=== PATIENT | male | born 1960 | race Caucasian/White ===

== ENCOUNTER → 2017-01-29 | Outpatient (CLI) | payer BC ==
--- NOTE | 2017-01-29 15:49 | XR ---
Right knee HISTORY: Right knee pain 3 views of the right knee No comparisons There is joint space loss in the medial compartment, minimal spurring suspected on one of the. Alignm ent and bone mineralization are maintained. No evident joint effusion. IMPRESSION: Consider osteoarthritis.
== END | disposition home or self-care (01) ==
LOC: RADXRYALE 14:44
PROVIDERS: ATTEND Internal Medicine
DX: M17.12 Unilateral primary osteoarthritis, left knee (principal)

== ENCOUNTER 2017-11-08 07:33 | Inpatient (IN) | payer BC ==
[~2017-11-08 07:33] MED LIST: ALPRAZolam 0.25 MG TAB PO PRN; ALPRAZolam 0.5 MG TAB PO PRN; ASPIRIN 325 MG TAB PO STA; NITROGLYCERIN SL TABS 0.4 MG TAB SUBLINGUAL PRN; SODIUM CHLORIDE 0.9% 1,000 ML in EMPTY BAG 1 BAG IV ONE
[2017-11-08] MEDS ORDERED: LIDOCAINE 2% INJ 20 MG/ML (20 ML MDV) ONE (09:13)
[2017-11-08] MEDS ORDERED: VERAPAMIL 2.5 MG/ML 2 ML AMP ONE (09:14)
[2017-11-08] MEDS ORDERED: MIDAZOLAM 2 MG/2 ML VIAL ONE ×2 (09:19→09:36)
[2017-11-08] MEDS ORDERED: HEPARIN SODIUM 1,000 UN/ML (10ML VL) ONE (09:19)
[2017-11-08] MEDS ORDERED: MIDAZOLAM 2 MG/2 ML VIAL IVP ONE ×2 (09:29→09:37)
[2017-11-08] MEDS ORDERED: IV FLUID CONTINUATION 900 ML IV ONE (09:30)
[2017-11-08] MEDS ORDERED: LIDOCAINE 2% INJ 20 MG/ML SQ ONE (09:33)
[2017-11-08] MEDS: VERAPAMIL SYRINGE (5 MG/10 ML) INTRAARTER ONE ×3 (09:34→09:52)
[2017-11-08] MEDS ORDERED: HEPARIN SODIUM 1,000 UN/ML (10ML VL) IV ONE (09:35)
[2017-11-08] MEDS ORDERED: IOPAMIDOL-370 125ML BTL INJ ONE (09:46)
[2017-11-08] MEDS ORDERED: RX INFO: IV CONTRAST WAS GIVEN 1 EACH MISC MISCELLANE PRN (10:07)
[2017-11-08] MEDS ORDERED: SODIUM CHLORIDE 0.9% 1,000 ML IV SCH (10:15)
[2017-11-08] MEDS ORDERED: MD COMMUNICATION TO PHARMACY 1 EACH MISC PO ONE ×2 (11:45)
--- NOTE | 2017-11-08 11:50 | CC ---
CARDIAC CATHETERIZATION REPORT DATE OF SERVICE: 11/08/2017 PERFORMING PHYSICIAN: Ric Hall MD, academic services coordinator. PROCEDURE PERFORMED: 1. Selective right and left coronary angiogram. 2. Left heart catheterization. 3. Left ventriculography. INDICATION: This is a pleasant 57-year-old gentleman who was experiencing intermittent episodes of dizziness and lightheadedness and atypical chest discomfort. He underwent an echocardiogram by Dr. Sampson and that revealed severe cardiomyopathy with EF about 30% with evidence of wall motion abnormalities concerning for severe underlying coronary artery disease. The patient was scheduled to undergo a heart catheterization. APPROACH: Right radial artery. COMPLICATION: None. LEVEL OF SEDATION: Moderate with sedation length of 23 minutes. PROCEDURE DESCRIPTION: After obtaining an informed consent, the patient was brought to the Cardiac [facility]. The right radial artery was cannulated using micropuncture technique, the micropuncture wire passed easily, then I placed a 6-Lithuanian sheath in the right radial artery. After that, I gave the patient 2 mg of verapamil IA and 10,000 units of heparin IV. I did selective right and left coronary angiogram using JR4 and JL3.5 catheters. Left heart catheterization was performed using 6-Lithuanian pigtail catheter. Then I did left ventriculography using the same pigtail catheter. The procedure was completed without any complication. SELECTIVE CORONARY ANGIOGRAM: 1. The right coronary artery is a large caliber vessel and it is a dominant vessel. The RCA is heavily calcified and totally and chronically occluded in the midportion and fills by collaterals from the left coronary system. 2. The left main has mild disease only. It is a calcified left main as well. It bifurcates into left circumflex, and left anterior descending artery. 3. The left circumflex is a moderate caliber vessel and it is non dominant vessel. The ostial circ has a disease, appeared to be in the range of 60%-70%. It gives rise into the first OM branch which is a moderate caliber vessel with mild disease only. The mid circ appeared to be angiographically normal and gives rise into a second OM branch which has mild disease, which appeared to be angiographically normal and the circ continued after that as a moderate caliber vessel in the AV groove. 4. The LAD, the proximal LAD has eccentric lesion appeared to be in the range of 70% - 80%. The mid LAD is 100% occluded. The mid to distal LAD has another lesion appeared to be in the range of 70%-80%. Extensive [id number] collaterals were seen filling the RCA until the midportion. HEMODYNAMICS: The left ventricular end-diastolic pressure was about 8 mmHg and no gradient was identified across the aortic valve. Left ventriculography was performed in the FORREST projection and using a power injection. The LV is dilated with EF about 20% with evidence of mid anterior, apical, and mid inferior hypokinesia. CONCLUSION: 1. Severe triple-vessel coronary artery disease. 2. Chronic total occlusion of the mid right coronary artery and the right coronary artery fills by collaterals from the left coronary system. 3. Mild disease involving the left main coronary artery. 4. Intermediate to severe disease involving the ostial left circumflex. 5. Severe disease involving the left anterior descending artery with severe lesion in the proximal portion and chronic total occlusion of the mid left anterior descending artery as well. 6. Normal left ventricular end-diastolic pressure. 7. Severe cardiomyopathy which is ischemic with EF about 20% with evidence of mid ventricle and apical hypokinesia. POSTPROCEDURE MANAGEMENT: 1. Consult surgeon for the evaluation of coronary artery bypass grafting. 2. Maximize medical treatment. I will stop the Plavix. Start the patient on JEFF inhibitor in addition to aspirin, statin, and beta héctor. 3. Follow up with the patient. MMODL / IJN: [id number] /
--- NOTE | 2017-11-08 11:50 | LTR ---
DATE OF SERVICE: 11/08/2017 RE: Bro Gross Dear Marion; Mr. Bro Gross underwent a heart catheterization earlier today. It did reveal severe triple-vessel coronary artery disease with severe cardiomyopathy and EF about 20%. He will benefit from coronary artery bypass grafting. I am consulting a surgeon to see him. I want to thank you for allowing us to participate in his care and do not hesitate to call if you have any question or concern. Sincerely, MD JOSH Winters / SHELDON: [id number] /
[2017-11-08 13:04] LABS: Cholesterol 130 mg/dL (<200); HDL Cholesterol 42 mg/dL (40-60); LDL Cholesterol,Calculated 80 mg/dL (0-99); Triglycerides 41 mg/dL (<150)
[2017-11-08 14:17] LABS: Basophils % (A) 0 %; Eosinophils # (A) 0.1 k/uL (0-0.7); Eosinophils % (A) 2 %; HCT 43.1 % (39.0-53.0); HGB 14.9 gm/dL (13.0-17.5); Lymphocytes # (A) 2.3 k/uL (1.0-4.8); Lymphocytes % (A) 30 %; MCH 31.7 pg (25.0-35.0); MCHC 34.6 g/dL (31.0-37.0); MCV 91.9 fL (80.0-100.0); Mean Platelet Volume 7.2; Monocytes # (A) 0.8 k/uL (0-1.0); Monocytes % (A) 10 %; Neutrophils # (A) 4.3 k/uL (1.3-7.7); Neutrophils % (A) 56 %; Platelet Count 209 k/uL (150-450); RBC 4.69 m/uL (4.30-5.90); RDW 12.9 % (11.5-15.5); WBC 7.6 k/uL (3.8-10.6)
[2017-11-08 14:23] LABS: INR 1.1 (<1.2); Partial Thromboplastin Time 25.6 sec (22.0-30.0); Prothrombin Time 10.5 sec (9.0-12.0)
[2017-11-08] MEDS: LISINOPRIL 2.5 MG TAB PO SCH (14:24)
[2017-11-08 14:33] LABS: ALT 19 U/L (21-72); AST 15 U/L (17-59); Albumin 3.7 g/dL (3.5-5.0); Alkaline Phosphatase 52 U/L (38-126); Anion Gap 10 mmol/L; Blood Urea Nitrogen 16 mg/dL (9-20); Calcium 8.7 mg/dL (8.4-10.2); Carbon Dioxide 24 mmol/L (22-30); Chloride 108 mmol/L (98-107); Glucose 119 mg/dL (74-99); Magnesium 2.2 mg/dL (1.6-2.3); Potassium 3.9 mmol/L (3.5-5.1); Sodium 142 mmol/L (137-145); Total Bilirubin 0.4 mg/dL (0.2-1.3); Total Protein 5.8 g/dL (6.3-8.2)
--- NOTE | 2017-11-08 15:40 | P.GSCN ---
History of Present Illness Consult date: 11/08/17 Reason for Consult: Symptomatic multivessel coronary artery disease, evaluation for myocardial revascularization surgery. Requesting physician: Ric Hall History of present illness: A 57-year-old gentleman who is followed by Dr. Marion oHlman on an outpatient basis. The patient has a medical history significant for recurrent dizzy spells , ischemic cardiomyopathy with an ejection fraction of 30-35%, moderate LV dysfunction with akinesis in the inferior wall and posterior wall and apex, preventricular contractions, current long-standing history of of tobacco dependence, hyperlipidemia, strong family history of coronary artery disease and need for bypass surgery, his sister was diagnosed with coronary artery disease at age 58, history of COPD, and osteoarthritis. In April 2017 patient had complaints of dizziness with near syncope with involuntary movements to his left arm. He reports this episode lasted for approximately 20 minutes. He had a repeat episode of dizziness with near syncope while at work in June 2017 and also had an episode where he not get appropriate words and out. He also reports that he experienced some sensation of vibration 6 to his chest. He denies any complaints of chest pain, fever, loss of bowel or bladder function, or visual disturbances. The patient subsequently underwent a neurology workup and underwent a 2-D echocardiogram which incidentally found his LV dysfunction and ejection fraction of 30-35%. Subsequently he was referred to Dr. Roberts and from cardiology to undergo a cardiac workup. Today he underwent an elective heart catheterization which demonstrated a 30% stenosis to his left main coronary artery, a totally occluded right coronary artery, a 70% stenosis to his circumflex coronary artery, a 70% stenosis to his proximal left anterior descending coronary artery, and a totally occluded mid left anterior descending coronary artery. During heart catheterization a left ventriculogram was completed which demonstrated an ejection fraction of 20%. Due to the patient's above-mentioned symptoms, 2-D echocardiogram and cardiac catheterization results a consult was placed to Dr. Rucker from cardiothoracic surgery to evaluate the patient for possible myocardial revascularization surgery. Review of Systems A 14 point review of systems was completed and was negative except as mentioned in the HPI. Past Medical History Past Medical History: Coronary Artery Disease (CAD), COPD, Hyperlipidemia, Neurologic Disorder (Episodes of dizziness 2 in April 2017 and June 2017. ), Osteoarthritis (OA), Pneumonia Additional Past Medical History / Comment(s): 2 episodes 04/2017 and 06/2017- not sure if stroke or OH-possible OH x 2, ischemic cardiomyopathy, ejection fraction 30-35%. History of Any Multi-Drug Resistant Organisms: None Reported Past Surgical History: Back Surgery (Laminectomy), Orthopedic Surgery Additional Past Surgical History / Comment(s): arthroscopy rt knee Past Anesthesia/Blood Transfusion Reactions: No Reported Reaction Past Psychological History: No Psychological Hx Reported Smoking Status: Current every day smoker (Smokes a half pack a day) Past Alcohol Use History: Rare Past Drug Use History: None Reported - Past Family History Mother Family Medical History: Cancer Medications and Allergies Home Medications Medication Instructions Recorded Confirmed Type Albuterol Nebulized [Ventolin 2.5 mg INHALATION TID PRN 11/05/17 11/08/17 History Nebulized] Aspirin [Adult Low Dose Aspirin EC] 81 mg PO DAILY 11/05/17 11/08/17 History Atorvastatin [Lipitor] 40 mg PO W/SUPPER 11/05/17 11/05/17 History Naproxen Sodium [Aleve] 440 mg PO Q12HR 11/05/17 11/08/17 History Isosorbide Mononitrate [Isosorbide 15 mg PO 1200 11/06/17 11/06/17 History Mononitrate ER] Metoprolol Succinate [Toprol XL] 25 mg PO DAILY 11/06/17 11/06/17 History traMADol HCL [Ultram] 50 mg PO BID PRN 11/06/17 11/08/17 History Lisinopril [Zestril] 2.5 mg PO DAILY #90 tab 11/08/17 Rx Allergies Allergy/AdvReac Type Severity Reaction Status Date / Time terbinafine [From Lamisil] AdvReac Rash/Hives Verified 11/05/17 14:18 Surgical - Exam Vital Signs Temp Pulse Resp BP Pulse Ox 98.4 F 68 20 139/89 96 11/08/17 08:19 11/08/17 08:19 11/08/17 08:19 11/08/17 08:19 11/08/17 08:19 - General well developed, well nourished, no distress, no pain - Eyes PERRL, normal ocular movement - ENT normal pinna, normal nares, normal mucosa, no hearing loss, no congestion - Neck neck is supple. no masses, no bruits, trachea midline, no venous distension - Respiratory Lung sounds are essentially clear throughout, diminished to his bilateral bases. Respirations are symmetrical and nonlabored. - Cardiovascular S1 and S2 present, negative for S3, gallop or murmur. Regular rhythm and rate. Bedside telemetry showing sinus bradycardia with occasional PVC heart rate 56. - Abdomen Abdomen is soft, nontender nondistended. Active bowel sounds all 4 abdominal quadrants. No organomegaly. No guarding or rigidity. - Genitourinary Deferred - Rectum Deferred - Integumentary no rash, no growths, no abnormal pigmentation - Neurologic normal coordination, normal sensation - Musculoskeletal normal gait, normal posture - Psychiatric oriented to time, oriented to person, oriented to place, speech is normal, memory intact Results - Labs 11/08/17 13:56 11/08/17 13:56 Abnormal Lab Results - Last 24 Hours (Table) 11/08/17 Range/Units 13:56 Chloride 108 H (98-107) mmol/L Glucose 119 H (74-99) mg/dL AST 15 L (17-59) U/L ALT 19 L (21-72) U/L Total Protein 5.8 L (6.3-8.2) g/dL Diabetes panel 11/08/17 11/08/17 Range/Units 11:40 13:56 Sodium 142 (137-145) mmol/L Potassium 3.9 (3.5-5.1) mmol/L Chloride 108 H (98-107) mmol/L Carbon Dioxide 24 (22-30) mmol/L BUN 16 (9-20) mg/dL Creatinine 0.83 (0.66-1.25) mg/dL Glucose 119 H (74-99) mg/dL Calcium 8.7 (8.4-10.2) mg/dL AST 15 L (17-59) U/L ALT 19 L (21-72) U/L Alkaline Phosphatase 52 (38-126) U/L Total Protein 5.8 L (6.3-8.2) g/dL Albumin 3.7 (3.5-5.0) g/dL Triglycerides 41 (<150) mg/dL HDL Cholesterol 42 (40-60) mg/dL Thyroid panel 11/08/17 Range/Units 13:56 TSH 3.560 (0.465-4.680) mIU/L Calcium panel 11/08/17 Range/Units 13:56 Calcium 8.7 (8.4-10.2) mg/dL Albumin 3.7 (3.5-5.0) g/dL Pituitary panel 11/08/17 Range/Units 13:56 Sodium 142 (137-145) mmol/L Potassium 3.9 (3.5-5.1) mmol/L Chloride 108 H (98-107) mmol/L Carbon Dioxide 24 (22-30) mmol/L BUN 16 (9-20) mg/dL Creatinine 0.83 (0.66-1.25) mg/dL Glucose 119 H (74-99) mg/dL Calcium 8.7 (8.4-10.2) mg/dL TSH 3.560 (0.465-4.680) mIU/L Adrenal panel 11/08/17 Range/Units 13:56 Sodium 142 (137-145) mmol/L Potassium 3.9 (3.5-5.1) mmol/L Chloride 108 H (98-107) mmol/L Carbon Dioxide 24 (22-30) mmol/L BUN 16 (9-20) mg/dL Creatinine 0.83 (0.66-1.25) mg/dL Glucose 119 H (74-99) mg/dL Calcium 8.7 (8.4-10.2) mg/dL Total Bilirubin 0.4 (0.2-1.3) mg/dL AST 15 L (17-59) U/L ALT 19 L (21-72) U/L Alkaline Phosphatase 52 (38-126) U/L Total Protein 5.8 L (6.3-8.2) g/dL Albumin 3.7 (3.5-5.0) g/dL Assessment and Plan (1) Coronary artery disease Current Visit: Yes Status: Acute Code(s): I25.10 - ATHSCL HEART DISEASE OF [place] CORONARY ARTERY W/O ANG PCTRS SNOMED Code(s): 69864262 (2) Episode of dizziness Current Visit: Yes Status: Acute Code(s): R42 - DIZZINESS AND GIDDINESS SNOMED Code(s): 771167275 (3) Hyperlipidemia Current Visit: Yes Status: Acute Code(s): E78.5 - HYPERLIPIDEMIA, UNSPECIFIED SNOMED Code(s): 76451650 (4) Osteoarthritis Current Visit: Yes Status: Acute Code(s): M19.90 - UNSPECIFIED OSTEOARTHRITIS, UNSPECIFIED SITE SNOMED Code(s): 998163973 (5) Nicotine dependence Current Visit: Yes Status: Acute Code(s): F17.200 - NICOTINE DEPENDENCE, UNSPECIFIED, UNCOMPLICATED SNOMED Code(s): 76148588 (6) Ischemic cardiomyopathy Current Visit: Yes Status: Acute Code(s): I25.5 - ISCHEMIC CARDIOMYOPATHY SNOMED Code(s): 222857059 (7) Family history of coronary artery disease Current Visit: Yes Status: Acute Code(s): Z82.49 - FAMILY HX OF ISCHEM HEART DIS AND OTH DIS OF THE CIRC SYS SNOMED Code(s): 284050167 (8) COPD (chronic obstructive pulmonary disease) Current Visit: Yes Status: Acute Code(s): J44.9 - CHRONIC OBSTRUCTIVE PULMONARY DISEASE, UNSPECIFIED SNOMED Code(s): 04922790 Plan: The patient was seen and examined. His chart and diagnostics were reviewed. Drs. Rucker met with the patient and his . Preoperative teaching initiated. Preoperative testing initiated. The patient will be admitted to the hospital for preoperative testing. Maximize medical therapy, continue aspirin, statin, beta héctor and JEFF inhibitor. The patient will be tentatively scheduled for myocardial revascularization surgery on Saturday, 03/2018 to be performed by Dr. Marjorie Rucker. Further recommendations to follow based on patient's clinical course. Consult Dr. Law for pulmonary management. Thank you Dr. Sampson for this consult and we look for to working with you in the care of your patient. Time with Patient: Greater than 30
[2017-11-08] MEDS: ISOSORBIDE MONONITRATE ER 15 MG TAB PO SCH (15:56)
--- NOTE | 2017-11-08 16:20 | US ---
EXAMINATION TYPE: US carotid duplex BILAT DATE OF EXAM: 11/08/2017 COMPARISON: NONE CLINICAL HISTORY: Preoperative cardiac surgery. Pre op cardiac surgery EXAM MEASUREMENTS: RIGHT: Peak Systolic Velocity (PSV) cm/sec ----- Right CCA: 96.8 ----- Right ICA: 83.3 ----- Right ECA: 88.8 ICA/CCA ratio: 0.9 RIGHT: End Diastole cm/sec ----- Right CCA: 17.2 ----- Right ICA: 27.1 ----- Right ECA: 18.3 LEFT: Peak Systolic Velocity (PSV) cm/sec ----- Left CCA: 73.3 ----- Left ICA: 87.7 ----- Left ECA: 71.1 ICA/CCA ratio: 1.2 LEFT: End Diastole cm/sec ----- Left CCA: 16.3 ----- Left ICA: 33.7 ----- Left ECA: 12.8 VERTEBRALS (direction of flow): Right Vertebral: Antegrade Left Vertebral: Antegrade Grayscale images no significant focal plaque. Velocity measurements and ratios are within normal limi ts bilaterally. IMPRESSION: No hemodynamically significant stenosis seen in either internal carotid artery.
[2017-11-08 18:53] LABS: Amorphous Sediment,Urine Rare /hpf; Appearance,Urine Clear (Clear); Bilirubin,Urine Negative (Negative); Blood,Urine Trace (Negative); Color,Urine Yellow; Glucose,Urine (UA) Negative (Negative); Ketones,Urine Negative (Negative); Leukocyte Esterase,Urine Negative (Negative); Mucus,Urine Rare /hpf; Nitrite,Urine Negative (Negative); PH, Urine 6.5 (5.0-8.0); Protein,Urine Negative (Negative); RBC,Urine 5 /hpf (0-5); Specific Gravity,Urine 1.024 (1.001-1.035); Urobilinogen,Urine <2.0 mg/dL (<2.0); WBC,Urine <1 /hpf (0-5)
[2017-11-08 18:53] LABS: Hepatitis A Antibody IgM Non-Reactive (Non-Reactive); Hepatitis B Core IgM Non-Reactive (Non-Reactive)
--- NOTE | 2017-11-08 20:03 | XR ---
EXAMINATION: XR chest 2V DATE AND TIME: 11/08/2017 6:36 PM ORDERING PROVIDER: Mainor Noland CLINICAL INDICATION: PreOp Cardiac Surgery TECHNIQUE: PA and lateral COMPARISON: None. DESCRIPTION: The lungs are clear. The pleural spaces are negative. The cardiac silhouette is not enlarged. The mediastinal and pleural silhouettes are unremarkable. The skeletal structures are intact without focal findings. The soft tissues are unremarkable. IMPRESSION: NO ACUTE PROCESS.
[2017-11-08 20:20] LABS: Hemoglobin A1C 5.7 % (4.0-6.0)
[2017-11-08] MEDS: METOPROLOL SUCCINATE (ER) 25 MG TAB.ER.24H PO SCH (20:28)
[2017-11-08] MEDS: MUPIROCIN 2% OINT 22 GM TUBE NASAL SCH (20:29)
--- NOTE | 2017-11-08 22:36 | P.HPIM ---
History of Present Illness H&P Date: 11/08/17 Chief Complaint: Triple-vessel coronary artery disease Patient is a 57-year-old male with a known history of COPD, active smoking, hyperlipidemia and family history of significant premature coronary artery disease was initially came to hospital for elective cardiac catheterization and was found to have triple-vessel coronary artery disease. Patient was subsequently admitted to the hospital for preoperative evaluation to proceed with coronary artery bypass graft. Patient has ischemic cardiomyopathy ejection fraction 30-35% with acanthosis in the inferior wall and posterior wall and apex. Patient's symptoms initially started in April and June 2017 when he does a poor dizziness. Patient initially presented to primary care physician and had neurological workup and cardiac workup was done. Patient was found to have LV dysfunction with ejection fraction 30-35%. Patient was subsequently referred to cardiology to undergo cardiac workup. Patient does have exertional short of breath and dizziness. No complaints of chest pain. No nausea vomiting or abdominal pain. No diaphoresis no radiation. Today he underwent an elective heart catheterization which demonstrated a 30% stenosis to his left main coronary artery, a totally occluded right coronary artery, a 70% stenosis to his circumflex coronary artery, a 70% stenosis to his proximal left anterior descending coronary artery, and a totally occluded mid left anterior descending coronary artery. During heart catheterization a left ventriculogram was completed which demonstrated an ejection fraction of 20%. Consulted Dr. Rucker from cardiothoracic surgery to evaluate the patient for possible myocardial revascularization surgery. Review of Systems Constitutional: Patient denies any fever or chills . No generalized weakness or weight loss. Abdomen: Patient denied nausea vomiting and diarrhea and abdominal pain. Cardiovascular: Patient denies any chest pain or short of breath no palpitations. Exertional short of breath Respiratory: patient denied any cough is from production. No shortness of breath Neurologic: Patient denied any numbness or tingling headache. Patient does have dizziness Musculoskeletal: Patient denies any complaints of joint swelling or deformity. Skin: Negative Psychiatric: Negative Endocrine: No heat or cold intolerance. No recent weight gain. Genitourinary: No dysuria or hematuria. All other 14 point ROS negative except the above Past Medical History Past Medical History: Coronary Artery Disease (CAD), COPD, Hyperlipidemia, Neurologic Disorder, Osteoarthritis (OA), Pneumonia Additional Past Medical History / Comment(s): 2 episodes 04/2017 and 06/2017- not sure if stroke or [place]-possible DC x 2, ischemic cardiomyopathy, ejection fraction 30-35%. History of Any Multi-Drug Resistant Organisms: None Reported Past Surgical History: Back Surgery, Orthopedic Surgery Additional Past Surgical History / Comment(s): arthroscopy rt knee Past Anesthesia/Blood Transfusion Reactions: No Reported Reaction Past Psychological History: No Psychological Hx Reported Smoking Status: Current every day smoker Past Alcohol Use History: Rare Additional Past Alcohol Use History / Comment(s): down to 4 cigarettes daily, for 40 yrs Past Drug Use History: None Reported - Past Family History Mother Family Medical History: Cancer Medications and Allergies Home Medications Medication Instructions Recorded Confirmed Type Albuterol Nebulized [Ventolin 2.5 mg INHALATION TID PRN 11/05/17 11/08/17 History Nebulized] Aspirin [Adult Low Dose Aspirin EC] 81 mg PO DAILY 11/05/17 11/08/17 History Atorvastatin [Lipitor] 40 mg PO W/SUPPER 11/05/17 11/05/17 History Naproxen Sodium [Aleve] 440 mg PO Q12HR 11/05/17 11/08/17 History Isosorbide Mononitrate [Isosorbide 15 mg PO 1200 11/06/17 11/06/17 History Mononitrate ER] Metoprolol Succinate [Toprol XL] 25 mg PO DAILY 11/06/17 11/06/17 History traMADol HCL [Ultram] 50 mg PO BID PRN 11/06/17 11/08/17 History Lisinopril [Zestril] 2.5 mg PO DAILY #90 tab 11/08/17 Rx Allergies Allergy/AdvReac Type Severity Reaction Status Date / Time terbinafine [From Lamisil] AdvReac Rash/Hives Verified 11/05/17 14:18 Physical Exam Vitals: Vital Signs Temp Pulse Pulse Resp BP BP Pulse Ox 11/08/17 16:44 97.8 F 52 L 18 135/78 96 11/08/17 15:45 18 126/66 96 11/08/17 13:45 20 129/63 96 11/08/17 12:45 18 146/71 95 11/08/17 11:45 18 145/80 96 11/08/17 10:45 18 137/85 97 11/08/17 10:30 20 134/88 98 11/08/17 10:15 20 146/82 97 11/08/17 10:00 18 154/89 96 11/08/17 08:19 98.4 F 68 20 139/89 141/85 96 Intake and Output 11/08/17 11/08/17 11/08/17 06:59 14:59 22:59 Intake Total 525 222 Output Total 250 Balance 275 222 Intake: IV 125 Sodium Chloride 0.9% 1, 75 000 ml @ 75 mls/hr IV . [id number] [facility] Rx#:[id number] Oral 400 222 Output: Urine 250 PHYSICAL EXAMINATION: Patient is lying in the bed comfortably, no acute distress, awake alert and oriented.. HEENT: Normocephalic. Neck is supple. Pupils reactive. Nostrils clear. Oral cavity is moist. Ears reveal no drainage. Neck reveals no JVD, carotid bruits, or thyromegaly. CHEST EXAMINATION: Trachea is central. Symmetrical expansion. Lung aranda clear to auscultation and percussion. Bilateral slowing entry with prolonged expiration. CARDIAC: Normal S1, S2 with no gallops. No murmurs ABDOMEN: Soft. Bowel sounds normal. No organomegaly. No abdominal bruits. Extremities: reveal no edema. No clubbing or cyanosis Neurologically awake, alert, oriented x3 with well-coordinated movements. No focal deficits noted Skin: No rash or skin lesions. Psychiatric: Coperative. Nonsuicidal Musculoskeletal: No joint swelling or deformity. Normal range of motion. Results CBC & Chem 7: 11/08/17 13:56 11/08/17 13:56 Labs: Abnormal Lab Results - Last 24 Hours (Table) 11/08/17 Range/Units 13:56 Chloride 108 H (98-107) mmol/L Glucose 119 H (74-99) mg/dL AST 15 L (17-59) U/L ALT 19 L (21-72) U/L Total Protein 5.8 L (6.3-8.2) g/dL Thrombosis Risk Factor Assmnt - DVT/VTE Prophylaxis DVT/VTE Prophylaxis: Pharmacologic Prophylaxis ordered - Choose All That Apply Any of the Below Risk Factors Present?: Yes Each Factor Represents 1 point: Age 41-60 years Thrombosis Risk Factor Assessment Total Risk Factor Score: 1 Thrombosis Risk Factor Assessment Level: Low Risk Assessment and Plan Assessment: Triple-vessel coronary artery disease. Status post elective cardiac catheterization on 11/08/2017. Preop workup for CABG in process Ischemic cardiomyopathy ejection fraction 30-35% with inferior wall akinesis Exertional short of breath and dizziness Family history of coronary disease Nicotine addiction Hyperlipidemia Osteoarthritis Possible underlying COPD with long-standing history of smoking DVT prophylaxis Plan: Patient will be continued on telemetry monitoring. Preoperative workup including chest x-ray lower extremity vein mapping and carotid duplex was ordered. Current CT surgery is planned following. We will continue the aspirin statins and beta blockers. Smoking cessation has been counseled extensively. Pain management and further recommendations based on the clinical course. Time with Patient: Greater than 30
[2017-11-09] MEDS ORDERED: LISINOPRIL 2.5 MG TAB PO SCH (09:00)
[2017-11-09] MEDS: ATORVASTATIN 80 MG TAB PO SCH (09:05)
[2017-11-09] MEDS: LISINOPRIL 2.5 MG TAB PO SCH (09:22)
[2017-11-09] MEDS: ASPIRIN 81 MG PO SCH (09:22)
[2017-11-09] MEDS: MUPIROCIN 2% OINT 22 GM TUBE NASAL SCH ×2 (09:22→19:50)
[2017-11-09] MEDS: METOPROLOL SUCCINATE (ER) 25 MG TAB.ER.24H PO SCH (09:39)
--- NOTE | 2017-11-09 12:18 | P.PN ---
Subjective Progress Note Date: 11/09/17 Principal diagnosis: Symptomatic multivessel coronary artery disease, history of recurrent dizzy spells, ischemic cardiomyopathy with an ejection fraction of 30-35%, moderate LV dysfunction with akinesis in the inferior wall and posterior wall and apex, preventricular contractions, current long-standing history of tobacco dependence , hyperlipidemia, strong family history of coronary artery disease and need for bypass surgery, his sister was diagnosed with coronary artery disease at age 58 , history of COPD and osteoarthritis. The patient is sitting up to the bedside chair. He is no acute distress. He denies any complaints of shortness of breath, pain or dizziness. His is present and their questions were answered to the best of my ability. Objective - Vital Signs Vital signs: Vital Signs Temp 97.4 F L 11/09/17 08:51 Pulse 50 L 11/09/17 08:51 Resp 16 11/09/17 08:51 BP 132/63 11/09/17 08:51 Pulse Ox 98 11/09/17 08:51 Intake & Output 11/08/17 11/09/17 11/09/17 18:59 06:59 18:59 Intake Total 747 240 Output Total 250 300 Balance 497 -300 240 Weight 84.8 kg Intake: IV 125 Sodium Chloride 0.9% 1, 75 000 ml @ 75 mls/hr IV . [id number] [facility] Rx#:[id number] Oral 622 240 Output: Urine 250 300 Other: Voiding Method Toilet Toilet # Voids 1 - Constitutional General appearance: Present: cooperative, no acute distress - Respiratory Details: Lungs sounds essentially clear throughout. Respirations are split: Nonlabored. Oxygen saturation are 94% on room air. He is achieving 3000 mL on his incentive spirometry. Bedside FEV1 completed which showed a FEV1 predicted of 72%. - Cardiovascular Details: Regular rhythm and bradycardic rate. S1 and S2 present, negative breast 3, gallop or murmur. Remote telemetry showing sinus bradycardia heart rate 49. No edema present. - Gastrointestinal Gastrointestinal Comment(s): Abdomen is soft, nontender and nondistended. Active bowel sounds all 4 abdominal quadrants. Tolerating oral intake. - Genitourinary Genitourinary Comment(s): Voiding clear yellow urine. - Integumentary Integumentary Comment(s): Skin is warm and dry. No rash or abnormal pigmentation present. - Neurologic Neurologic: Present: CNII-XII intact - Musculoskeletal Musculoskeletal: Present: gait normal, strength equal bilaterally - Psychiatric Psychiatric: Present: A&O x's 3, appropriate affect, intact judgment & insight - Allied health notes Allied health notes reviewed: nursing - Labs CBC & Chem 7: 11/08/17 13:56 11/08/17 13:56 Labs: Abnormal Lab Results - Last 24 Hours (Table) 11/08/17 11/08/17 Range/Units 13:56 17:00 Chloride 108 H (98-107) mmol/L Glucose 119 H (74-99) mg/dL AST 15 L (17-59) U/L ALT 19 L (21-72) U/L Total Protein 5.8 L (6.3-8.2) g/dL Urine Blood Trace H (Negative) Amorphous Sediment Rare H (None) /hpf Urine Mucus Rare H (None) /hpf Microbiology - Last 24 Hours (Table) 11/08/17 17:00 Urine Culture - Preliminary Urine,Clean Catch 11/08/17 16:30 Nasal Screen MRSA/MSSA (JORGE) - Preliminary Nasal Swab Assessment and Plan (1) Coronary artery disease Current Visit: Yes Status: Acute Code(s): I25.10 - ATHSCL HEART DISEASE OF [place] CORONARY ARTERY W/O ANG PCTRS SNOMED Code(s): 17374060 (2) Episode of dizziness Current Visit: Yes Status: Acute Code(s): R42 - DIZZINESS AND GIDDINESS SNOMED Code(s): 129163033 (3) Hyperlipidemia Current Visit: Yes Status: Acute Code(s): E78.5 - HYPERLIPIDEMIA, UNSPECIFIED SNOMED Code(s): 03931441 (4) Osteoarthritis Current Visit: Yes Status: Acute Code(s): M19.90 - UNSPECIFIED OSTEOARTHRITIS, UNSPECIFIED SITE SNOMED Code(s): 274515231 (5) Nicotine dependence Current Visit: Yes Status: Acute Code(s): F17.200 - NICOTINE DEPENDENCE, UNSPECIFIED, UNCOMPLICATED SNOMED Code(s): 15843973 (6) Ischemic cardiomyopathy Current Visit: Yes Status: Acute Code(s): I25.5 - ISCHEMIC CARDIOMYOPATHY SNOMED Code(s): 342377535 (7) Family history of coronary artery disease Current Visit: Yes Status: Acute Code(s): Z82.49 - FAMILY HX OF ISCHEM HEART DIS AND OTH DIS OF THE CIRC SYS SNOMED Code(s): 204599502 (8) COPD (chronic obstructive pulmonary disease) Current Visit: Yes Status: Acute Code(s): J44.9 - CHRONIC OBSTRUCTIVE PULMONARY DISEASE, UNSPECIFIED SNOMED Code(s): 02427167 Plan: 1. Continue preoperative workup. Continue aspirin, statin and beta héctor as tolerated per parameters 2. Continue preoperative teaching. 3. Encourage use of his incentive spirometry every hour while awake. 4. The patient is scheduled for myocardial vascularization surgery on Saturday , 11/13/2017 to be performed by Dr. Marjorie Rucker. 5. Reinforced the importance of smoking cessation. 6. More recommendations to follow based on the patient's clinical course. Time with Patient: Greater than 30
[2017-11-09] MEDS: ISOSORBIDE MONONITRATE ER 15 MG TAB PO SCH (12:40)
--- NOTE | 2017-11-09 13:09 | PN ---
PROGRESS NOTE This patient underwent cardiac catheterization yesterday. Patient was found to have a severe triple-vessel disease. Patient is doing well. Cardiothoracic surgeons are going to see the patient on consultation. Patient is resting comfortably. Heart rate is 50 per minute. Blood pressure is 132/63 mmHg. First and second heart sounds are normal. Lungs are clinically clear to auscultation and percussion. Patient will be continued on the current medications, awaiting the consultation from Cardiothoracic Surgery. MMODL / IJN: [id number] /
--- NOTE | 2017-11-09 13:42 | P.CNPUL ---
History of Present Illness Consult date: 11/09/17 Chief complaint: Anticipated bypass grafting History of present illness: Pulmonary consult dated 11/09/2017 This is a 57-year-old male with history of coronary artery disease, who ended up having bypass surgery next week. He also has a history of underlying COPD hyperlipidemia dizziness osteoarthritis and a previous episode of pneumonia. In addition, he has a history of ischemic cardiomyopathy with an ejection fraction of 30-35%. He may have had a myocardial infarction in the past as well. Surgical history includes among other things right knee arthroscopy and laminectomy. He does smoke cigarettes. He is a current every day smoker about half a pack a day. His been smoking for a number of years. I did look his lung function and they seem fine and he should do fine with surgery. His medications are reviewed. The patient does have a albuterol nebulizer at home. He uses it 2 or 3 times a day. No other lung medications. The patient was found on catheterization to show a 30% stenosis of his left main coronary artery , a totally occluded right coronary artery, a 70% stenosis to the circumflex coronary artery and a 70% stenosis to his proximal left anterior descending coronary artery. His ventriculogram revealed a ejection fraction of 20%. Review of Systems A 12 point review of system is positive for primarily dizziness and the finding of CAD on catheterization. Past Medical History Past Medical History: Coronary Artery Disease (CAD), COPD, Hyperlipidemia, Neurologic Disorder, Osteoarthritis (OA), Pneumonia Additional Past Medical History / Comment(s): 2 episodes 04/2017 and 06/2017- not sure if stroke or NH-possible NH x 2, ischemic cardiomyopathy, ejection fraction 30-35%. History of Any Multi-Drug Resistant Organisms: None Reported Past Surgical History: Back Surgery, Orthopedic Surgery Additional Past Surgical History / Comment(s): arthroscopy rt knee Past Anesthesia/Blood Transfusion Reactions: No Reported Reaction Past Psychological History: No Psychological Hx Reported Smoking Status: Current every day smoker Past Alcohol Use History: Rare Additional Past Alcohol Use History / Comment(s): down to 4 cigarettes daily, for 40 yrs Past Drug Use History: None Reported - Past Family History Mother Family Medical History: Cancer Medications and Allergies Home Medications Medication Instructions Recorded Confirmed Type Albuterol Nebulized [Ventolin 2.5 mg INHALATION TID PRN 11/05/17 11/08/17 History Nebulized] Aspirin [Adult Low Dose Aspirin EC] 81 mg PO DAILY 11/05/17 11/08/17 History Atorvastatin [Lipitor] 40 mg PO W/SUPPER 11/05/17 11/05/17 History Naproxen Sodium [Aleve] 440 mg PO Q12HR 11/05/17 11/08/17 History Isosorbide Mononitrate [Isosorbide 15 mg PO 1200 11/06/17 11/06/17 History Mononitrate ER] Metoprolol Succinate [Toprol XL] 25 mg PO DAILY 11/06/17 11/06/17 History traMADol HCL [Ultram] 50 mg PO BID PRN 11/06/17 11/08/17 History Lisinopril [Zestril] 2.5 mg PO DAILY #90 tab 11/08/17 Rx Allergies Allergy/AdvReac Type Severity Reaction Status Date / Time terbinafine [From Lamisil] AdvReac Rash/Hives Verified 11/05/17 14:18 Physical Exam Osteopathic Statement: *. No significant issues noted on an osteopathic structural exam other than those noted in the History and Physical/Consult. Vitals: Vital Signs Temp Pulse Resp BP Pulse Ox 11/09/17 12:41 46 L 16 128/68 96 11/09/17 08:51 97.4 F L 50 L 16 132/63 98 11/09/17 04:00 98 F 61 16 123/75 94 L 11/09/17 00:00 97.8 F 51 L 18 123/59 97 11/08/17 20:00 97.2 F L 53 L 18 152/83 94 L 11/08/17 16:44 97.8 F 52 L 18 135/78 96 11/08/17 15:45 18 126/66 96 11/08/17 13:45 20 129/63 96 Intake and Output 11/08/17 11/09/17 11/09/17 22:59 06:59 14:59 Intake Total 222 240 Output Total 300 1000 Balance -78 -760 Intake: Oral 222 240 Output: Urine 300 1000 Other: Voiding Method Toilet Toilet # Voids 1 1 Weight 84.8 kg No acute distress, oriented 3. HEENT examination is grossly unremarkable. Mucous membranes are moist. No oral lesions. Neck supple. Full range of motion. No adenopathy thyromegaly or neck vein distention. Cardiovascular examination reveals regular rhythm rate. S1-S2 normal. No S3 or S4. No discernible murmur noted. Lungs reveal clear breath sounds. His breath sounds are equal bilaterally. No adventitious lung sounds including wheezes rhonchi or crackles. Abdomen soft bowel sounds are heard. No masses or tenderness. Extremities are intact. No cyanosis clubbing or edema. Skin is without rash or lesion. Neurologic examination is brief but nonfocal. Results - Laboratory Findings CBC and BMP: 11/08/17 13:56 11/08/17 13:56 PT/INR, D-dimer PT 10.5 sec (9.0-12.0) 11/08/17 13:56 INR 1.1 (<1.2) 11/08/17 13:56 Abnormal lab findings: Abnormal Labs 11/08/17 11/08/17 13:56 17:00 Chloride 108 H Glucose 119 H AST 15 L ALT 19 L Total Protein 5.8 L Urine Blood Trace H Amorphous Sediment Rare H Urine Mucus Rare H - Diagnostic Findings Chest x-ray: image reviewed (Labs x-rays and medications are reviewed.) Assessment and Plan Assessment: Assessment Severe three-vessel coronary artery disease Mild/moderate COPD based on bedside spirometry. History of hyperlipidemia DJD History of pneumonia Ischemic cardiomyopathy Previous NH Anticipated bypass grafting later next week. Plan: Plan dated 11/09/2017 The patient seemed be doing relatively well. PFTs were reasonable. We'll continue to follow. The patient really is not having any lung complaints at this time. Denies any chest tightness wheezing cough phlegm production coughing up blood or any other lung complaints at this time. We told the patient that we would follow him after the surgical procedure. Time with Patient: Greater than 30
--- NOTE | 2017-11-09 14:25 | ECHOF ---
Referral Reason:pre op cardiac surgery MEASUREMENTS -------- HEIGHT: 182.9 cm WEIGHT: 85.7 kg BP: RVIDd: 2.9 cm (< 3.3) IVSd: 1.3 cm (0.6 - 1.1) LVIDd: 5.3 cm (3.9 - 5.3) LVPWd: 1.8 cm (0.6 - 1.1) IVSs: 1.3 cm LVIDs: 4.7 cm LVPWs: 1.4 cm LA Diam: 4.7 cm (2.7 - 3.8) LAESV Index (A-L): 40.53 ml/m Ao Diam: 3.4 cm (2.0 - 3.7) AV Cusp: 2.0 cm (1.5 - 2.6) LA Diam: 4.7 cm (2.7 - 3.8) MV EXCURSION: 20.130 mm (> 18.000) MV EF SLOPE: 49 mm/s (70 - 150) EPSS: 1.5 cm MV E Jacques: 0.76 m/s MV DecT: 406 ms MV A Jacques: 0.77 m/s MV E/A Ratio: 0.98 RAP: 5.00 mmHg RVSP: 30.00 mmHg FINDINGS -------- Sinus rhythm. This was a technically good study. The left ventricular size is normal. There is mild concentric left ventricular hypertrophy. Overa ll left ventricular systolic function is moderate-severely impaired with, an EF between 30 - 35 %. Apical septum LV wall motion is hypokinetic. Inferiorlateral Hypokinesis Inferior Hypokinesis [place] Hypokinesis. The right ventricle is normal in size. The left atrium is mildly dilated. LA is severely dilated >40 ml/m2 The right atrial size is normal. The aortic valve is trileaflet, and appears structurally normal. No aortic stenosis or regurgitation. Mild mitral regurgitation is present. Mild tricuspid regurgitation present. There is no evidence of pulmonary hypertension. The right v entricular systolic pressure, as measured by Doppler, is 30.00mmHg. There is no pulmonic regurgitation present. The aortic root size is normal. There is no pericardial effusion. CONCLUSIONS -------- 1. The left ventricular size is normal. 2. There is mild concentric left ventricular hypertrophy. 3. Overall left ventricular systolic function is moderate-severely impaired with, an EF between 30 - 35 %. 4. Apical septum LV wall motion is hypokinetic. 5. Inferiorlateral Hypokinesis 6. Inferior Hypokinesis 7. [place] Hypokinesis. 8. The left atrium is mildly dilated. 9. LA is severely dilated >40 ml/m2 10. The aortic valve is trileaflet, and appears structurally normal. No aortic stenosis or regurgitat ion. 11. Mild mitral regurgitation is present. 12. Mild tricuspid regurgitation present. 13. There is no evidence of pulmonary hypertension. 14. The right ventricular systolic pressure, as measured by Doppler, is 30.00mmHg. 15. There is no pulmonic regurgitation present. 16. The aortic root size is normal. 17. There is no pericardial effusion. SERVICE CASHIER: Benita Barrera RDCS
[2017-11-09 21:47] LABS: Magnesium 2.2 mg/dL (1.6-2.3); Potassium 4.1 mmol/L (3.5-5.1)
--- NOTE | 2017-11-09 22:04 | P.PN ---
Subjective Progress Note Date: 11/09/17 Principal diagnosis: Triple-vessel coronary artery disease Patient is a 57-year-old male with a known history of COPD, active smoking, hyperlipidemia and family history of significant premature coronary artery disease was initially came to hospital for elective cardiac catheterization and was found to have triple-vessel coronary artery disease. Patient was subsequently admitted to the hospital for preoperative evaluation to proceed with coronary artery bypass graft. Patient has ischemic cardiomyopathy ejection fraction 30-35% with acanthosis in the inferior wall and posterior wall and apex. Patient's symptoms initially started in April and June 2017 when he does a poor dizziness. Patient initially presented to primary care physician and had neurological workup and cardiac workup was done. Patient was found to have LV dysfunction with ejection fraction 30-35%. Patient was subsequently referred to cardiology to undergo cardiac workup. Patient does have exertional short of breath and dizziness. No complaints of chest pain. No nausea vomiting or abdominal pain. No diaphoresis no radiation. Today he underwent an elective heart catheterization which demonstrated a 30% stenosis to his left main coronary artery, a totally occluded right coronary artery, a 70% stenosis to his circumflex coronary artery, a 70% stenosis to his proximal left anterior descending coronary artery, and a totally occluded mid left anterior descending coronary artery. During heart catheterization a left ventriculogram was completed which demonstrated an ejection fraction of 20%. Consulted Dr. Rucker from cardiothoracic 11/09/2017 Patient denied any complaints of chest pain or shortness of breath. Patient is undergoing preoperative workup for coronary artery bypass graft. No other acute overnight issues. No nausea vomiting or abdominal pain. No fever no chills. No cough or sputum production. All other review of systems negative except the above Current medications reviewed. Objective - Vital Signs Vital signs: Vital Signs Temp 97.8 F 11/09/17 20:00 Pulse 40 L 11/09/17 20:00 Resp 17 11/09/17 20:00 BP 134/71 11/09/17 20:00 Pulse Ox 100 11/09/17 20:00 Intake & Output 11/09/17 11/09/17 11/10/17 06:59 18:59 06:59 Intake Total 240 Output Total 300 1000 Balance -300 -760 Weight 84.8 kg Intake: Oral 240 Output: Urine 300 1000 Other: Voiding Method Toilet Toilet # Voids 1 3 - Exam PHYSICAL EXAMINATION: Patient is lying in the bed comfortably, no acute distress, awake alert and oriented.. HEENT: Normocephalic. Neck is supple. Pupils reactive. Nostrils clear. Oral cavity is moist. Ears reveal no drainage. Neck reveals no JVD, carotid bruits, or thyromegaly. CHEST EXAMINATION: Trachea is central. Symmetrical expansion. Bilateral air movement is prolonged. Lung aranda clear to auscultation and percussion. CARDIAC: Normal S1, S2 with no gallops. No murmurs ABDOMEN: Soft. Bowel sounds normal. No organomegaly. No abdominal bruits. Extremities: reveal no edema. No clubbing or cyanosis Neurologically awake, alert, oriented x3 with well-coordinated movements. No focal deficits noted Skin: No rash or skin lesions. Psychiatric: Coperative. Nonsuicidal Musculoskeletal: No joint swelling or deformity. Normal range of motion. - Labs CBC & Chem 7: 11/08/17 13:56 11/09/17 21:21 Labs: Microbiology - Last 24 Hours (Table) 11/08/17 17:00 Urine Culture - Final Urine,Clean Catch 11/08/17 16:30 Nasal Screen MRSA/MSSA (JORGE) - Preliminary Nasal Swab Assessment and Plan Assessment: Triple-vessel coronary artery disease. Status post elective cardiac catheterization on 11/08/2017. Preop workup for CABG in process Ischemic cardiomyopathy ejection fraction 30-35% with inferior wall akinesis Exertional short of breath and dizziness Family history of coronary disease Nicotine addiction Hyperlipidemia Osteoarthritis Possible underlying COPD with long-standing history of smoking DVT prophylaxis Plan: Patient will be continued on telemetry monitoring. Preoperative workup including chest x-ray lower extremity vein mapping and carotid duplex was ordered. Current CT surgery is planned following. We will continue the aspirin statins and beta blockers. Smoking cessation has been counseled extensively. Pain management and further recommendations based on the clinical course. Time with Patient: Greater than 30
[2017-11-10] MEDS ORDERED: MD COMMUNICATION TO PHARMACY 1 EACH MISC PO ONE ×4 (08:11→08:21)
[2017-11-10] MEDS: MUPIROCIN 2% OINT 22 GM TUBE NASAL SCH ×2 (08:35→19:32)
[2017-11-10] MEDS: ASPIRIN 81 MG PO SCH (08:36)
[2017-11-10] MEDS: LISINOPRIL 2.5 MG TAB PO SCH (08:36)
[2017-11-10] MEDS: METOPROLOL SUCCINATE (ER) 25 MG TAB.ER.24H PO SCH (08:36)
[2017-11-10] MEDS: ATORVASTATIN 80 MG TAB PO SCH (08:36)
--- NOTE | 2017-11-10 11:13 | P.PN ---
Subjective Progress Note Date: 11/10/17 Principal diagnosis: Anticipated bypass grafting/CAD Progress note dated 11/10/2017 This is a 57-year-old male who we saw recently in consultation. He was discovered to have three-vessel coronary disease and mild to moderate COPD based on spirometry. He is to have bypass grafting this week. The patient also has a history of hyperlipidemia DJD pneumonia and ischemic cardiomyopathy and previous myocardial infarction. The patient's feeling generally well. Denies any chest pain or chest discomfort. No shortness of breath. No cough or wheezing. No phlegm production. No nausea vomiting or diarrhea. Objective - Vital Signs Vital signs: Vital Signs Temp 97.5 F L 11/10/17 08:00 Pulse 46 L 11/10/17 08:00 Resp 16 11/10/17 08:00 BP 128/68 11/10/17 08:00 Pulse Ox 97 11/10/17 08:00 Intake & Output 11/09/17 11/10/17 11/10/17 18:59 06:59 18:59 Intake Total 240 Output Total 1000 Balance -760 Weight 84.3 kg Intake: Oral 240 Output: Urine 1000 Other: Voiding Method Toilet # Voids 2 - Exam No acute distress, oriented 3. HEENT examination is grossly unremarkable. Mucous membranes are moist. No oral lesions. Neck supple. Full range of motion. No adenopathy thyromegaly or neck vein distention. Cardiovascular examination reveals regular rhythm rate. S1-S2 normal. No S3 or S4. No discernible murmur noted. Lungs reveal clear breath sounds. His breath sounds are equal bilaterally. No adventitious lung sounds including wheezes rhonchi or crackles. Abdomen soft bowel sounds are heard. No masses or tenderness. Extremities are intact. No cyanosis clubbing or edema. Skin is without rash or lesion. Neurologic examination is brief but nonfocal. - Labs CBC & Chem 7: 11/08/17 13:56 11/09/17 21:21 Labs: Microbiology - Last 24 Hours (Table) 11/08/17 16:30 Nasal Screen MRSA/MSSA (JORGE) - Final Nasal Swab 11/08/17 17:00 Urine Culture - Final Urine,Clean Catch Assessment and Plan Assessment: Assessment Severe three-vessel coronary artery disease Mild/moderate COPD based on bedside spirometry. History of hyperlipidemia DJD History of pneumonia Ischemic cardiomyopathy Previous PA Anticipated bypass grafting later next week. Plan: Plan dated 11/09/2017 The patient seemed be doing relatively well. PFTs were reasonable. We'll continue to follow. The patient really is not having any lung complaints at this time. Denies any chest tightness wheezing cough phlegm production coughing up blood or any other lung complaints at this time. We told the patient that we would follow him after the surgical procedure. Plan dated 11/10/2017 The patient seemed be doing relatively well. No respiratory issues at this time. The results of the spirometry were discussed with him. The patient will have bypass grafting some data is weak. Possibly on Saturday. Additional recommendations suggestions. We'll continue to follow. Time with Patient: Less than 30
--- NOTE | 2017-11-10 11:51 | P.PN ---
Subjective Progress Note Date: 11/10/17 Principal diagnosis: Symptomatic multivessel coronary artery disease, history of recurrent dizzy spells, ischemic cardiomyopathy with an ejection fraction of 30-35%, moderate LV dysfunction with akinesis in the inferior wall and posterior wall and apex, preventricular contractions, current long-standing history of tobacco dependence , hyperlipidemia, strong family history of coronary artery disease and need for bypass surgery, his sister was diagnosed with coronary artery disease at age 58 , history of COPD with a preoperative FEV1 of 72% of predicted and osteoarthritis. The patient is sitting up to the bedside chair. He is no acute distress. He denies any complaints of shortness of breath, pain or dizziness. His is present and their questions were answered to the best of my ability. Objective - Vital Signs Vital signs: Vital Signs Temp 97.6 F 11/10/17 11:44 Pulse 48 L 11/10/17 11:44 Resp 18 11/10/17 11:44 BP 120/67 11/10/17 11:44 Pulse Ox 97 11/10/17 11:44 Intake & Output 11/09/17 11/10/17 11/10/17 18:59 06:59 18:59 Intake Total 240 Output Total 1000 Balance -760 Weight 84.3 kg Intake: Oral 240 Output: Urine 1000 Other: Voiding Method Toilet # Voids 2 - Constitutional General appearance: Present: cooperative, no acute distress - Respiratory Details: Lung sounds with few scattered crackles throughout, diminished to his bilateral bases. Respirations are symmetrical and nonlabored. Oxygen saturation are 96% on room air. He is achieving 3000 mm on his incentive spirometry. - Cardiovascular Details: Regular rhythm and bradycardic rate. S1 and S2 present, negative for S3, gallop or murmur. No edema present. Remote telemetry showing sinus bradycardia heart rate 49. - Gastrointestinal Gastrointestinal Comment(s): Abdomen is soft, nontender nondistended. Active bowel sounds all 4 abdominal quadrants. Tolerating oral intake. - Genitourinary Genitourinary Comment(s): Voiding clear yellow urine. - Integumentary Integumentary Comment(s): Skin is warm and dry. No clubbing or cyanosis present. No rash or abnormal pigmentation present. - Neurologic Neurologic: Present: CNII-XII intact - Musculoskeletal Musculoskeletal: Present: gait normal, strength equal bilaterally - Psychiatric Psychiatric: Present: A&O x's 3, appropriate affect, intact judgment & insight - Allied health notes Allied health notes reviewed: nursing - Labs CBC & Chem 7: 11/08/17 13:56 11/09/17 21:21 Labs: Microbiology - Last 24 Hours (Table) 11/08/17 16:30 Nasal Screen MRSA/MSSA (JORGE) - Final Nasal Swab 11/08/17 17:00 Urine Culture - Final Urine,Clean Catch Assessment and Plan (1) Coronary artery disease Current Visit: Yes Status: Acute Code(s): I25.10 - ATHSCL HEART DISEASE OF [place] CORONARY ARTERY W/O ANG PCTRS SNOMED Code(s): 79619084 (2) Episode of dizziness Current Visit: Yes Status: Acute Code(s): R42 - DIZZINESS AND GIDDINESS SNOMED Code(s): 329441111 (3) Hyperlipidemia Current Visit: Yes Status: Acute Code(s): E78.5 - HYPERLIPIDEMIA, UNSPECIFIED SNOMED Code(s): 40242035 (4) Osteoarthritis Current Visit: Yes Status: Acute Code(s): M19.90 - UNSPECIFIED OSTEOARTHRITIS, UNSPECIFIED SITE SNOMED Code(s): 698463302 (5) Nicotine dependence Current Visit: Yes Status: Acute Code(s): F17.200 - NICOTINE DEPENDENCE, UNSPECIFIED, UNCOMPLICATED SNOMED Code(s): 12891577 (6) Ischemic cardiomyopathy Current Visit: Yes Status: Acute Code(s): I25.5 - ISCHEMIC CARDIOMYOPATHY SNOMED Code(s): 541724184 (7) Family history of coronary artery disease Current Visit: Yes Status: Acute Code(s): Z82.49 - FAMILY HX OF ISCHEM HEART DIS AND OTH DIS OF THE CIRC SYS SNOMED Code(s): 673824188 (8) COPD (chronic obstructive pulmonary disease) Current Visit: Yes Status: Acute Code(s): J44.9 - CHRONIC OBSTRUCTIVE PULMONARY DISEASE, UNSPECIFIED SNOMED Code(s): 69975127 Plan: 1. Continue preoperative workup. Continue aspirin, statin and beta héctor as tolerated per parameters 2. Continue preoperative teaching. 3. Encourage use of his incentive spirometry every hour while awake. 4. The patient is scheduled for myocardial vascularization surgery on Saturday , 11/13/2017 to be performed by Dr. Marjorie Rucker. 5. Reinforced the importance of smoking cessation. 6. GI and DVT prophylaxis 7. More recommendations to follow based on the patient's clinical course. Time with Patient: Greater than 30
[2017-11-10] MEDS: ISOSORBIDE MONONITRATE ER 15 MG TAB PO SCH (12:25)
[2017-11-10] MEDS: NAPROXEN 250 MG TAB PO PRN (12:25)
--- NOTE | 2017-11-10 12:43 | P.PN ---
Subjective Progress Note Date: 11/10/17 This is a 57-year-old gentleman who follows with Dr. García in the office. He had been experiencing intermittent symptoms of lightheadedness and atypical chest discomfort. He underwent an echocardiogram by Dr. Sampson which revealed severe cardiac myopathy with an ejection fraction of approximately 30% , for that reason he was advised to undergo cardiac catheterization. This was performed on admission here by Dr. Oseguera. Cath revealed severe triple-vessel coronary artery disease on the patient was seen in consultation by cardiothoracic surgery and will be scheduled to undergo coronary bypass grafting surgery on Saturday. Hemodynamically the patient is stable, heart rate in the high 40s to low 50s, he acutely with ambulation. No lab data performed today. Patient denies any chest discomfort, breathing is overall stable. No dizziness or lightheadedness. Objective - Vital Signs Vital signs: Vital Signs Temp 97.6 F 11/10/17 11:44 Pulse 48 L 11/10/17 11:44 Resp 18 11/10/17 11:44 BP 120/67 11/10/17 11:44 Pulse Ox 97 11/10/17 11:44 Intake & Output 11/09/17 11/10/17 11/10/17 18:59 06:59 18:59 Intake Total 240 Output Total 1000 Balance -760 Weight 84.3 kg Intake: Oral 240 Output: Urine 1000 Other: Voiding Method Toilet # Voids 2 - Exam PHYSICAL EXAMINATION: HEENT: Head is atraumatic, normocephalic. Pupils equal, round. Neck is supple. There is no elevated jugular venous pressure. HEART EXAMINATION: Heart S1, S2 normal. No murmur or gallop heard. CHEST EXAMINATION: Lungs are clear to auscultation and precussion. No chest wall tenderness is noted on palpation or with deep breathing. ABDOMEN: Soft, nontender. Bowel sounds are heard. No organomegaly noted. EXTREMITIES: 2+ peripheral pulses with no evidence of peripheral edema and no calf tenderness noted. NEUROLOGIC patient is awake, alert and oriented -3. . - Labs CBC & Chem 7: 11/08/17 13:56 11/09/17 21:21 Labs: Microbiology - Last 24 Hours (Table) 11/08/17 16:30 Nasal Screen MRSA/MSSA ([facility]ORGE) - Final Nasal Swab 11/08/17 17:00 Urine Culture - Final Urine,Clean Catch Assessment and Plan Plan: Assessment and Plan #1 triple-vessel coronary artery disease, status post cardiac catheterization, awaiting coronary bypass grafting surgery which is scheduled for Saturday. #2 ischemic cardiomyopathy #3 hyperlipidemia #4 COPD Plan I did have a discussion with the patient and his this morning, answering their questions, patient is scheduled to undergo coronary bypass grafting surgery on Saturday. DNP note has been reviewed, I agree with a documented findings and plan of care. Patient was seen and examined.
--- NOTE | 2017-11-11 01:04 | P.PN ---
Subjective Progress Note Date: 11/10/17 Principal diagnosis: Triple-vessel coronary artery disease Patient is a 57-year-old male with a known history of COPD, active smoking, hyperlipidemia and family history of significant premature coronary artery disease was initially came to hospital for elective cardiac catheterization and was found to have triple-vessel coronary artery disease. Patient was subsequently admitted to the hospital for preoperative evaluation to proceed with coronary artery bypass graft. Patient has ischemic cardiomyopathy ejection fraction 30-35% with acanthosis in the inferior wall and posterior wall and apex. Patient's symptoms initially started in April and June 2017 when he does a poor dizziness. Patient initially presented to primary care physician and had neurological workup and cardiac workup was done. Patient was found to have LV dysfunction with ejection fraction 30-35%. Patient was subsequently referred to cardiology to undergo cardiac workup. Patient does have exertional short of breath and dizziness. No complaints of chest pain. No nausea vomiting or abdominal pain. No diaphoresis no radiation. Today he underwent an elective heart catheterization which demonstrated a 30% stenosis to his left main coronary artery, a totally occluded right coronary artery, a 70% stenosis to his circumflex coronary artery, a 70% stenosis to his proximal left anterior descending coronary artery, and a totally occluded mid left anterior descending coronary artery. During heart catheterization a left ventriculogram was completed which demonstrated an ejection fraction of 20%. Consulted Dr. Rucker from cardiothoracic 11/09/2017 Patient denied any complaints of chest pain or shortness of breath. Patient is undergoing preoperative workup for coronary artery bypass graft. No other acute overnight issues. No nausea vomiting or abdominal pain. No fever no chills. No cough or sputum production. 11/10/2017 Patient denied any new complaints today. Scheduled for CABG on Saturday. No acute overnight issues. All other review of systems negative except the above Current medications reviewed. Objective - Vital Signs Vital signs: Vital Signs Temp 97.6 F 11/10/17 11:44 Pulse 48 L 11/10/17 11:44 Resp 18 11/10/17 11:44 BP 120/67 11/10/17 11:44 Pulse Ox 97 11/10/17 11:44 Intake & Output 11/09/17 11/10/17 11/10/17 18:59 06:59 18:59 Intake Total 240 462 Output Total 1000 1 Balance -760 461 Weight 84.3 kg Intake: Oral 240 462 Output: Urine 1000 1 Other: Voiding Method Toilet # Voids 2 - Exam PHYSICAL EXAMINATION: Patient is lying in the bed comfortably, no acute distress, awake alert and oriented.. HEENT: Normocephalic. Neck is supple. Pupils reactive. Nostrils clear. Oral cavity is moist. Ears reveal no drainage. Neck reveals no JVD, carotid bruits, or thyromegaly. CHEST EXAMINATION: Trachea is central. Symmetrical expansion. Air entry much improved. Lung aranda clear to auscultation and percussion. CARDIAC: Normal S1, S2 with no gallops. No murmurs ABDOMEN: Soft. Bowel sounds normal. No organomegaly. No abdominal bruits. Extremities: reveal no edema. No clubbing or cyanosis Neurologically awake, alert, oriented x3 with well-coordinated movements. No focal deficits noted Skin: No rash or skin lesions. Psychiatric: Coperative. Nonsuicidal Musculoskeletal: No joint swelling or deformity. Normal range of motion. - Labs CBC & Chem 7: 11/08/17 13:56 11/09/17 21:21 Labs: Microbiology - Last 24 Hours (Table) 11/08/17 16:30 Nasal Screen MRSA/MSSA ([facility]ORGE) - Final Nasal Swab 11/08/17 17:00 Urine Culture - Final Urine,Clean Catch Assessment and Plan Assessment: Triple-vessel coronary artery disease. Status post elective cardiac catheterization on 11/08/2017. Preop workup for CABG in process Ischemic cardiomyopathy ejection fraction 30-35% with inferior wall akinesis Exertional short of breath and dizziness Family history of coronary disease Nicotine addiction Hyperlipidemia Osteoarthritis Possible underlying COPD with long-standing history of smoking DVT prophylaxis Plan: Patient will be continued on telemetry monitoring. Preoperative workup including chest x-ray lower extremity vein mapping and carotid duplex was ordered. CT surgery is planning for CABG on Saturday. We will continue statins and beta blockers. Smoking cessation has been counseled extensively. Pain management and further recommendations based on the clinical course. Time with Patient: Greater than 30
[2017-11-11] MEDS: ATORVASTATIN 80 MG TAB PO SCH (08:14)
[2017-11-11] MEDS: ASPIRIN 81 MG PO SCH (08:14)
[2017-11-11] MEDS: MUPIROCIN 2% OINT 22 GM TUBE NASAL SCH ×2 (08:14→19:59)
[2017-11-11] MEDS: METOPROLOL SUCCINATE (ER) 25 MG TAB.ER.24H PO SCH (08:14)
[2017-11-11] MEDS: ISOSORBIDE MONONITRATE ER 15 MG TAB PO SCH (11:47)
[2017-11-11] MEDS: NAPROXEN 250 MG TAB PO PRN (11:47)
--- NOTE | 2017-11-11 13:44 | P.PN ---
Subjective Progress Note Date: 11/11/17 Principal diagnosis: Symptomatic multivessel coronary artery disease, history of recurrent dizzy spells, ischemic cardiomyopathy with an ejection fraction of 30-35%, moderate LV dysfunction with akinesis in the inferior wall and posterior wall and apex, preventricular contractions, current long-standing history of tobacco dependence , hyperlipidemia, strong family history of coronary artery disease and need for bypass surgery, his sister was diagnosed with coronary artery disease at age 58 , history of COPD with a preoperative FEV1 of 72% of predicted and osteoarthritis. The patient is sitting up to the bedside chair. He is no acute distress. He denies any complaints of shortness of breath, pain or dizziness. His is present and their questions were answered to the best of my ability. Objective - Vital Signs Vital signs: Vital Signs Temp 98.1 F 11/11/17 11:24 Pulse 69 11/11/17 11:24 Resp 18 11/11/17 11:24 BP 114/80 11/11/17 11:24 Pulse Ox 95 11/11/17 11:24 Intake & Output 11/10/17 11/11/17 11/11/17 18:59 06:59 18:59 Intake Total 462 240 420 Output Total 1 1100 Balance 461 240 -680 Weight 83.5 kg Intake: Oral 462 240 420 Output: Urine 1 1100 Other: # Voids 2 - Constitutional General appearance: Present: cooperative, no acute distress - Respiratory Details: Lung sounds with few scattered crackles throughout. Respirations are symmetrical and nonlabored. Oxygen saturation are 96% on room air. He is achieving 3000 mL on his incentive spirometry. Preoperative FEV1 has been completed and is 72% of predicted. - Cardiovascular Details: Regular rhythm and rate. S1 and S2 present, negative for S3, gallop or murmur. Remote telemetry showing sinus bradycardia heart rate 58. No edema present. - Gastrointestinal Gastrointestinal Comment(s): Abdomen is soft, nontender and nondistended. Active bowel sounds all 4 abdominal quadrants. Tolerating oral intake. - Genitourinary Genitourinary Comment(s): Voiding clear yellow urine. - Integumentary Integumentary Comment(s): Skin is warm and dry. No clubbing or cyanosis present. No rash or abnormal pigmentation present. - Neurologic Neurologic: Present: CNII-XII intact - Musculoskeletal Musculoskeletal: Present: gait normal, strength equal bilaterally - Psychiatric Psychiatric: Present: A&O x's 3, appropriate affect, intact judgment & insight - Allied health notes Allied health notes reviewed: nursing - Labs CBC & Chem 7: 11/08/17 13:56 11/09/17 21:21 Assessment and Plan (1) Coronary artery disease Current Visit: Yes Status: Acute Code(s): I25.10 - ATHSCL HEART DISEASE OF [place] CORONARY ARTERY W/O ANG PCTRS SNOMED Code(s): 20581202 (2) Episode of dizziness Current Visit: Yes Status: Acute Code(s): R42 - DIZZINESS AND GIDDINESS SNOMED Code(s): 043535791 (3) Hyperlipidemia Current Visit: Yes Status: Acute Code(s): E78.5 - HYPERLIPIDEMIA, UNSPECIFIED SNOMED Code(s): 81035997 (4) Osteoarthritis Current Visit: Yes Status: Acute Code(s): M19.90 - UNSPECIFIED OSTEOARTHRITIS, UNSPECIFIED SITE SNOMED Code(s): 734215973 (5) Nicotine dependence Current Visit: Yes Status: Acute Code(s): F17.200 - NICOTINE DEPENDENCE, UNSPECIFIED, UNCOMPLICATED SNOMED Code(s): 41409931 (6) Ischemic cardiomyopathy Current Visit: Yes Status: Acute Code(s): I25.5 - ISCHEMIC CARDIOMYOPATHY SNOMED Code(s): 503442683 (7) Family history of coronary artery disease Current Visit: Yes Status: Acute Code(s): Z82.49 - FAMILY HX OF ISCHEM HEART DIS AND OTH DIS OF THE CIRC SYS SNOMED Code(s): 147670265 (8) COPD (chronic obstructive pulmonary disease) Current Visit: Yes Status: Acute Code(s): J44.9 - CHRONIC OBSTRUCTIVE PULMONARY DISEASE, UNSPECIFIED SNOMED Code(s): 09279323 Plan: 1. Continue preoperative workup. Continue aspirin, statin and beta héctor as tolerated per parameters 2. Continue preoperative teaching. 3. Encourage use of his incentive spirometry every hour while awake. 4. The patient is scheduled for myocardial vascularization surgery on Saturday , 11/13/2017 to be performed by Dr. Marjorie Rucker. 5. Reinforced the importance of smoking cessation. 6. GI and DVT prophylaxis 7. More recommendations to follow based on the patient's clinical course. Time with Patient: Greater than 30
--- NOTE | 2017-11-11 15:09 | P.PN ---
Subjective Progress Note Date: 11/11/17 This is a 57-year-old gentleman who follows with Dr. García in the office. He had been experiencing intermittent symptoms of lightheadedness and atypical chest discomfort. He underwent an echocardiogram by Dr. Sampson which revealed severe cardiac myopathy with an ejection fraction of approximately 30% , for that reason he was advised to undergo cardiac catheterization. This was performed on admission here by Dr. Oseguera. Cath revealed severe triple-vessel coronary artery disease on the patient was seen in consultation by cardiothoracic surgery and will be scheduled to undergo coronary bypass grafting surgery on Saturday. Hemodynamically the patient is stable, heart rate in the high 40s to low 50s, he acutely with ambulation. No lab data performed today. Patient denies any chest discomfort, breathing is overall stable. No dizziness or lightheadedness. 11/11/2017 Patient was seen and examined this morning, doing well, denies any chest pain or difficulty in breathing. He's been up ambulating without any difficulty. Good for coronary artery bypass grafting surgery on Saturday. Objective - Vital Signs Vital signs: Vital Signs Temp 98.1 F 11/11/17 11:24 Pulse 69 11/11/17 11:24 Resp 18 11/11/17 11:24 BP 114/80 11/11/17 11:24 Pulse Ox 95 11/11/17 11:24 Intake & Output 11/10/17 11/11/17 11/11/17 18:59 06:59 18:59 Intake Total 462 240 420 Output Total 1 1100 Balance 461 240 -680 Weight 83.5 kg Intake: Oral 462 240 420 Output: Urine 1 1100 Other: # Voids 2 - Exam PHYSICAL EXAMINATION: HEENT: Head is atraumatic, normocephalic. Pupils equal, round. Neck is supple. There is no elevated jugular venous pressure. HEART EXAMINATION: Heart S1, S2 normal. No murmur or gallop heard. CHEST EXAMINATION: Lungs are clear to auscultation and precussion. No chest wall tenderness is noted on palpation or with deep breathing. ABDOMEN: Soft, nontender. Bowel sounds are heard. No organomegaly noted. EXTREMITIES: 2+ peripheral pulses with no evidence of peripheral edema and no calf tenderness noted. NEUROLOGIC patient is awake, alert and oriented -3. . - Labs CBC & Chem 7: 11/08/17 13:56 11/09/17 21:21 Assessment and Plan Plan: Assessment and Plan #1 triple-vessel coronary artery disease, status post cardiac catheterization, awaiting coronary bypass grafting surgery which is scheduled for Saturday. #2 ischemic cardiomyopathy #3 hyperlipidemia #4 COPD Plan I did have a discussion with the patient and his this morning, answering their questions, patient is scheduled to undergo coronary bypass grafting surgery on Saturday. DNP note has been reviewed, I agree with a documented findings and plan of care. Patient was seen and examined.
--- NOTE | 2017-11-11 16:39 | P.PN ---
Subjective Progress Note Date: 11/11/17 Principal diagnosis: Severe three-vessel coronary artery disease Progress note dated 11/10/2017 This is a 57-year-old male who we saw recently in consultation. He was discovered to have three-vessel coronary disease and mild to moderate COPD based on spirometry. He is to have bypass grafting this week. The patient also has a history of hyperlipidemia DJD pneumonia and ischemic cardiomyopathy and previous myocardial infarction. The patient's feeling generally well. Denies any chest pain or chest discomfort. No shortness of breath. No cough or wheezing. No phlegm production. No nausea vomiting or diarrhea. On 11/11/2017 patient seen in follow-up on selective care unit. He denies any acute distress, currently on room air with O2 sat at 97%. Hemodynamically stable, afebrile. Denies any chest pain, denies any worsening dyspnea. Patient was evaluated by cardiothoracic surgery, and he is scheduled for coronary bypass grafting on 11/13/[address] Rucker. Pre-op PFTs were performed, and showed FEV1 of 72% predicted consistent with moderate obstructive lung disease, the patient quit smoking prior to admission. Objective - Vital Signs Vital signs: Vital Signs Temp 97.9 F 11/11/17 16:00 Pulse 46 L 11/11/17 16:00 Resp 18 11/11/17 16:00 BP 107/60 11/11/17 16:00 Pulse Ox 97 11/11/17 16:00 Intake & Output 11/10/17 11/11/17 11/11/17 18:59 06:59 18:59 Intake Total 462 240 420 Output Total 1 1100 Balance 461 240 -680 Weight 83.5 kg Intake: Oral 462 240 420 Output: Urine 1 1100 Other: # Voids 2 - Exam No acute distress, oriented 3. HEENT examination is grossly unremarkable. Mucous membranes are moist. No oral lesions. Neck supple. Full range of motion. No adenopathy thyromegaly or neck vein distention. Cardiovascular examination reveals regular rhythm rate. S1-S2 normal. No S3 or S4. No discernible murmur noted. Lungs reveal clear breath sounds. His breath sounds are equal bilaterally. No adventitious lung sounds including wheezes rhonchi or crackles. Abdomen soft bowel sounds are heard. No masses or tenderness. Extremities are intact. No cyanosis clubbing or edema. Skin is without rash or lesion. Neurologic examination is brief but nonfocal. - Labs CBC & Chem 7: 11/08/17 13:56 11/09/17 21:21 Assessment and Plan Plan: Assessment: Severe three-vessel coronary artery disease Mild/moderate COPD based on bedside spirometry. History of hyperlipidemia DJD History of pneumonia Ischemic cardiomyopathy Previous CO Anticipated bypass grafting later next week. Plan: Continue encouraging Incentive spirometry, patient denies any chest pain, denies any worsening dyspnea at this time. He is scheduled for coronary artery bypass grafting on Saturday by Dr. Sandoval. His PFT and chest x-ray reviewed. I performed a history & physical examination of the patient and discussed their management with my nurse practitioner, Zenaida Llamas. I reviewed the nurse practitioner's note and agree with the documented findings and plan of care. Lung sounds are clear The findings and the impression was discussed with the patient. I attest to the documentation by the nurse practitioner. Time with Patient: Less than 30
--- NOTE | 2017-11-12 02:09 | P.PN ---
Subjective Progress Note Date: 11/11/17 Principal diagnosis: Triple-vessel coronary artery disease Patient is a 57-year-old male with a known history of COPD, active smoking, hyperlipidemia and family history of significant premature coronary artery disease was initially came to hospital for elective cardiac catheterization and was found to have triple-vessel coronary artery disease. Patient was subsequently admitted to the hospital for preoperative evaluation to proceed with coronary artery bypass graft. Patient has ischemic cardiomyopathy ejection fraction 30-35% with acanthosis in the inferior wall and posterior wall and apex. Patient's symptoms initially started in April and June 2017 when he does a poor dizziness. Patient initially presented to primary care physician and had neurological workup and cardiac workup was done. Patient was found to have LV dysfunction with ejection fraction 30-35%. Patient was subsequently referred to cardiology to undergo cardiac workup. Patient does have exertional short of breath and dizziness. No complaints of chest pain. No nausea vomiting or abdominal pain. No diaphoresis no radiation. Today he underwent an elective heart catheterization which demonstrated a 30% stenosis to his left main coronary artery, a totally occluded right coronary artery, a 70% stenosis to his circumflex coronary artery, a 70% stenosis to his proximal left anterior descending coronary artery, and a totally occluded mid left anterior descending coronary artery. During heart catheterization a left ventriculogram was completed which demonstrated an ejection fraction of 20%. Consulted Dr. Rucker from cardiothoracic 11/09/2017 Patient denied any complaints of chest pain or shortness of breath. Patient is undergoing preoperative workup for coronary artery bypass graft. No other acute overnight issues. No nausea vomiting or abdominal pain. No fever no chills. No cough or sputum production. 11/10/2017 Patient denied any new complaints today. Scheduled for CABG on Saturday. No acute overnight issues. 11/11/2017 Patient denied any new complaints today. Scheduled for CABG on Saturday. No other acute overnight issues. All other review of systems negative except the above Current medications reviewed. Objective - Vital Signs Vital signs: Vital Signs Temp 97 F L 11/11/17 20:00 Pulse 47 L 11/11/17 20:00 Resp 16 11/11/17 20:00 BP 145/88 11/11/17 20:00 Pulse Ox 97 11/11/17 20:00 Intake & Output 11/11/17 11/11/17 11/12/17 06:59 18:59 06:59 Intake Total 240 660 Output Total 1100 Balance 240 -440 Weight 83.5 kg Intake: Oral 240 660 Output: Urine 1100 Other: Voiding Method Toilet # Voids 2 - Exam PHYSICAL EXAMINATION: Patient is lying in the bed comfortably, no acute distress, awake alert and oriented.. HEENT: Normocephalic. Neck is supple. Pupils reactive. Nostrils clear. Oral cavity is moist. Ears reveal no drainage. Neck reveals no JVD, carotid bruits, or thyromegaly. CHEST EXAMINATION: Trachea is central. Symmetrical expansion. Air entry much improved. Lung aranda clear to auscultation and percussion. CARDIAC: Normal S1, S2 with no gallops. No murmurs ABDOMEN: Soft. Bowel sounds normal. No organomegaly. No abdominal bruits. Extremities: reveal no edema. No clubbing or cyanosis Neurologically awake, alert, oriented x3 with well-coordinated movements. No focal deficits noted Skin: No rash or skin lesions. Psychiatric: Coperative. Nonsuicidal Musculoskeletal: No joint swelling or deformity. Normal range of motion. - Labs CBC & Chem 7: 11/08/17 13:56 11/09/17 21:21 Assessment and Plan Assessment: Triple-vessel coronary artery disease. Status post elective cardiac catheterization on 11/08/2017. Preop workup for CABG in process Ischemic cardiomyopathy ejection fraction 30-35% with inferior wall akinesis Exertional short of breath and dizziness Family history of coronary disease Nicotine addiction Hyperlipidemia Osteoarthritis Possible underlying COPD with long-standing history of smoking DVT prophylaxis Plan: Patient will be continued on telemetry monitoring. Preoperative workup including chest x-ray lower extremity vein mapping and carotid duplex was ordered. CT surgery is planning for CABG on Saturday. We will continue statins and beta blockers. Smoking cessation has been counseled extensively. Pain management and further recommendations based on the clinical course.
[2017-11-12 05:55] LABS: Basophils % (A) 1 %; Eosinophils # (A) 0.2 k/uL (0-0.7); Eosinophils % (A) 2 %; HCT 46.9 % (39.0-53.0); HGB 15.6 gm/dL (13.0-17.5); Lymphocytes # (A) 2.5 k/uL (1.0-4.8); Lymphocytes % (A) 26 %; MCH 30.7 pg (25.0-35.0); MCHC 33.1 g/dL (31.0-37.0); MCV 92.7 fL (80.0-100.0); Mean Platelet Volume 7.4; Monocytes # (A) 0.9 k/uL (0-1.0); Monocytes % (A) 9 %; Neutrophils # (A) 5.9 k/uL (1.3-7.7); Neutrophils % (A) 61 %; Platelet Count 233 k/uL (150-450); RBC 5.07 m/uL (4.30-5.90); RDW 12.9 % (11.5-15.5); WBC 9.7 k/uL (3.8-10.6)
[2017-11-12 06:07] LABS: ALT 14 U/L (21-72); AST 16 U/L (17-59); Albumin 4.2 g/dL (3.5-5.0); Alkaline Phosphatase 55 U/L (38-126); Anion Gap 13 mmol/L; Blood Urea Nitrogen 24 mg/dL (9-20); Calcium 9.3 mg/dL (8.4-10.2); Carbon Dioxide 25 mmol/L (22-30); Chloride 105 mmol/L (98-107); Glucose 98 mg/dL (74-99); Sodium 143 mmol/L (137-145); Total Bilirubin 0.6 mg/dL (0.2-1.3); Total Protein 6.5 g/dL (6.3-8.2)
[2017-11-12] MEDS: MUPIROCIN 2% OINT 22 GM TUBE NASAL SCH ×2 (08:05→20:29)
[2017-11-12] MEDS: METOPROLOL SUCCINATE (ER) 25 MG TAB.ER.24H PO SCH (08:05)
[2017-11-12] MEDS: ASPIRIN 81 MG PO SCH (08:05)
[2017-11-12] MEDS: ATORVASTATIN 80 MG TAB PO SCH (08:05)
[2017-11-12] MEDS ORDERED: LACTULOSE 20 GM/30 ML CUP PO ONE (09:51)
--- NOTE | 2017-11-12 09:55 | P.PN ---
Subjective Progress Note Date: 11/12/17 Principal diagnosis: Symptomatic multivessel coronary artery disease, history of recurrent dizzy spells, ischemic cardiomyopathy with an ejection fraction of 30-35%, moderate LV dysfunction with akinesis in the inferior wall and posterior wall and apex, preventricular contractions, current long-standing history of tobacco dependence , hyperlipidemia, strong family history of coronary artery disease and need for bypass surgery, his sister was diagnosed with coronary artery disease at age 58 , history of COPD with a preoperative FEV1 of 72% of predicted and osteoarthritis. The patient is sitting up to the bedside chair. He is no acute distress. He denies any complaints of shortness of breath, pain or dizziness. He reports that he has been ambulating in the hallway several times throughout the day without difficulty. He is complaining of constipation. Objective - Vital Signs Vital signs: Vital Signs Temp 97 F L 11/12/17 04:00 Pulse 52 L 11/12/17 04:00 Resp 16 11/12/17 04:00 BP 119/71 11/12/17 04:00 Pulse Ox 97 11/12/17 04:00 Intake & Output 11/11/17 11/12/17 11/12/17 18:59 06:59 18:59 Intake Total 660 150 Output Total 1100 Balance -440 150 Weight 83.5 kg Intake: Oral 660 150 Output: Urine 1100 Other: Voiding Method Toilet # Voids 2 - Constitutional General appearance: Present: cooperative, no acute distress - Respiratory Details: Lung sounds with few scattered crackles throughout. Respirations are symmetrical and nonlabored. Oxygen saturation are 97% on room air. His achieving 3000 L on his incentive spirometry. His preoperative FEV1 was 72% of predicted. - Cardiovascular Details: Regular rhythm and rate. S1 and S2 present, negative for S3, gallop or murmur. Remote telemetry showing sinus bradycardia heart rate 60. No edema present. - Gastrointestinal Gastrointestinal Comment(s): Abdomen is soft, nontender and nondistended. Active bowel sounds to all 4 abdominal quadrants. Tolerating oral intake. Passing flatus. No guarding or rigidity. - Genitourinary Genitourinary Comment(s): Voiding clear yellow urine. - Integumentary Integumentary Comment(s): Skin is warm and dry. No clubbing or cyanosis present. No rashes or abnormal pigmentation present. - Neurologic Neurologic: Present: CNII-XII intact - Musculoskeletal Musculoskeletal: Present: gait normal, strength equal bilaterally - Psychiatric Psychiatric: Present: A&O x's 3, appropriate affect, intact judgment & insight - Allied health notes Allied health notes reviewed: nursing - Labs CBC & Chem 7: 11/12/17 05:44 11/12/17 05:44 Labs: Abnormal Lab Results - Last 24 Hours (Table) 11/12/17 11/12/17 Range/Units 05:44 05:44 BUN 24 H (9-20) mg/dL AST 16 L (17-59) U/L ALT 14 L (21-72) U/L Crossmatch See Detail Assessment and Plan (1) Coronary artery disease Current Visit: Yes Status: Acute Code(s): I25.10 - ATHSCL HEART DISEASE OF [place] CORONARY ARTERY W/O ANG PCTRS SNOMED Code(s): 20015954 (2) Episode of dizziness Current Visit: Yes Status: Acute Code(s): R42 - DIZZINESS AND GIDDINESS SNOMED Code(s): 819477759 (3) Hyperlipidemia Current Visit: Yes Status: Acute Code(s): E78.5 - HYPERLIPIDEMIA, UNSPECIFIED SNOMED Code(s): 87637053 (4) Osteoarthritis Current Visit: Yes Status: Acute Code(s): M19.90 - UNSPECIFIED OSTEOARTHRITIS, UNSPECIFIED SITE SNOMED Code(s): 796294038 (5) Nicotine dependence Current Visit: Yes Status: Acute Code(s): F17.200 - NICOTINE DEPENDENCE, UNSPECIFIED, UNCOMPLICATED SNOMED Code(s): 35211137 (6) Ischemic cardiomyopathy Current Visit: Yes Status: Acute Code(s): I25.5 - ISCHEMIC CARDIOMYOPATHY SNOMED Code(s): 985275305 (7) Family history of coronary artery disease Current Visit: Yes Status: Acute Code(s): Z82.49 - FAMILY HX OF ISCHEM HEART DIS AND OTH DIS OF THE CIRC SYS SNOMED Code(s): 346629547 (8) COPD (chronic obstructive pulmonary disease) Current Visit: Yes Status: Acute Code(s): J44.9 - CHRONIC OBSTRUCTIVE PULMONARY DISEASE, UNSPECIFIED SNOMED Code(s): 85903896 Plan: 1. Continue preoperative workup. Continue aspirin, statin and beta héctor as tolerated per parameters 2. Continue preoperative teaching. 3. Encourage use of his incentive spirometry every hour while awake. 4. The patient is scheduled for myocardial vascularization surgery on Saturday , 11/13/2017 to be performed by Dr. Marjorie Rucker. 5. Reinforced the importance of smoking cessation. 6. GI and DVT prophylaxis 7. STS risk score was completed and calculated, it was discussed with the patient by Dr. Rucker. 8. Lactulose 20 g by mouth 1 now for complaints of constipation. 9. 5 m walk test was completed by exercise physiology yesterday 11/11/2017. Time 1: 4.8 seconds, time 2: 4.36 seconds, time 3:4.9 seconds. 10. More recommendations to follow based on the patient's clinical course. Time with Patient: Greater than 30
--- NOTE | 2017-11-12 10:53 | P.VSCSTY ---
Greater Saphenous Vein Mapping This is bilateral lower extremity greater saphenous vein mapping. Date of service 11/08/2017 Vein quality and ultrasound appearance no wall changes or intraluminal thrombus are seen. Vein size groin right 9.3 x 9.7 groin left 6.9 x 7.1 High thigh right 3.7 x 4.3 high thigh left 3.9 x 4.4 Mid thigh right 3.7 x 4.1 mid thigh left 4.7 x 5.9 Above-knee right 3.2 x 3.9 above-knee left 4.2 x 4.9 Below knee right 4.4 x 6.1 below-knee left 2.8 x 4.1 Mid calf right 2.6 x 3.1 mid calf left 3.0 x 4.5 Ankle right 2.7 x 3.5 ankle left 3.2 x 4.9 Impression usable bilateral greater saphenous vein.
--- NOTE | 2017-11-12 11:02 | P.ARTDOP ---
Arterial Doppler LOWER EXTREMITY ARTERIAL DOPPLER: DATE OF SERVICE: 11/08/2017 Reason for study: Pre-CABG. Doppler waveforms: Multiphasic bilaterally throughout. Pulse volume recording: []. Pressure gradients: [ none ]. Ankle-brachial indices: [ Greater than 1 bilaterally]. Toe pressures: [] on the right, [] on the left Impression: [ Normal study].
[2017-11-12] MEDS: ISOSORBIDE MONONITRATE ER 15 MG TAB PO SCH (11:31)
--- NOTE | 2017-11-12 12:50 | P.PN ---
Subjective Progress Note Date: 11/12/17 Principal diagnosis: Severe triple-vessel coronary artery disease This is a very pleasant 57-year-old gentleman who was found to have severe coronary artery disease. Cardiac catheterization revealed chronic total occlusion of the mid RCA, intermediate to severe disease in the ostial left circumflex and severe disease involving the LAD. Ejection fraction 20%. The plan is for coronary artery bypass grafting tomorrow morning. He does have a history of hyperlipidemia, degenerative joint disease, previous pneumonia, ischemic cardiomyopathy with previous myocardial infarction. Today he is awake and alert in no acute distress. He denies any further chest pain, palpitations, lightheadedness or dizziness. No shortness of breath, cough or congestion. He is pulling 2700 mL on his incentive spirometer. FEV1 value 72% of predicted. He is maintaining good O2 saturations in the high 90s on room air. He's been afebrile. Hemodynamically stable. No lab abnormalities. Objective - Vital Signs Vital signs: Vital Signs Temp 96.4 F L 11/12/17 11:45 Pulse 52 L 11/12/17 11:45 Resp 16 11/12/17 11:45 BP 121/68 11/12/17 11:45 Pulse Ox 97 11/12/17 11:45 Intake & Output 11/11/17 11/12/17 11/12/17 18:59 06:59 18:59 Intake Total 660 150 Output Total 1100 Balance -440 150 Weight 83.5 kg Intake: Oral 660 150 Output: Urine 1100 Other: Voiding Method Toilet Toilet # Voids 2 - Exam GENERAL EXAM: Alert, active, comfortable in no apparent distress. HEAD: Normocephalic. EYES: Normal reaction of pupils, equal size. NOSE: Clear with pink turbinates. THROAT: No erythema or exudates. NECK: No masses, no JVD. CHEST: No chest wall deformity. LUNGS: Equal air entry with no crackles, wheeze, rhonchi or dullness. CVS: S1 and S2 normal with no audible murmur, regular rhythm. ABDOMEN: No hepatosplenomegaly, normal bowel sounds, no guarding or rigidity. SPINE: No scoliosis or deformity SKIN: No rashes CENTRAL NERVOUS SYSTEM: No focal deficits, tone is normal in all 4 extremities. EXTREMITIES: There is no peripheral edema. No clubbing, no cyanosis. Peripheral pulses are intact. - Labs CBC & Chem 7: 11/12/17 05:44 11/12/17 05:44 Labs: Abnormal Lab Results - Last 24 Hours (Table) 11/12/17 11/12/17 Range/Units 05:44 05:44 BUN 24 H (9-20) mg/dL AST 16 L (17-59) U/L ALT 14 L (21-72) U/L Crossmatch See Detail Assessment and Plan Assessment: Impression: #1 Severe triple-vessel coronary artery disease with the plan is for revascularization 11/14/2007. #2 Mild to moderate chronic obstructive pulmonary disease with FEV1 value of 74 % of predicted. #3 Hyperlipidemia. #4 Previous myocardial infarction with ischemic cardiomyopathy and ejection fraction of 20%. #5 Degenerative joint disease. Plan: The patient was seen and evaluated by Dr. Castellanos. He is again encouraged regarding the use of the incentive spirometer. He is doing 2700 mls currently. His been up ambulating without any acute chest pain or shortness of breath. We will continue to follow and make further recommendations based on his clinical status. I, the cosigning physician, performed a history & physical examination of the patient. Lungs sounds are clear. Maintaining good O2 saturations in the 90s on room air. I discussed the assessment and plan of care with my nurse practitioner, Celeste Torrez. I attest to the above note as dictated by her.
[2017-11-12] MEDS: NAPROXEN 250 MG TAB PO PRN (13:51)
--- NOTE | 2017-11-12 15:20 | P.PN ---
Subjective Progress Note Date: 11/12/17 This is a 57-year-old gentleman who follows with Dr. García in the office. He had been experiencing intermittent symptoms of lightheadedness and atypical chest discomfort. He underwent an echocardiogram by Dr. Sampson which revealed severe cardiac myopathy with an ejection fraction of approximately 30% , for that reason he was advised to undergo cardiac catheterization. This was performed on admission here by Dr. Oseguera. Cath revealed severe triple-vessel coronary artery disease on the patient was seen in consultation by cardiothoracic surgery and will be scheduled to undergo coronary bypass grafting surgery on Saturday. Hemodynamically the patient is stable, heart rate in the high 40s to low 50s, he acutely with ambulation. No lab data performed today. Patient denies any chest discomfort, breathing is overall stable. No dizziness or lightheadedness. 11/11/2017 Patient was seen and examined this morning, doing well, denies any chest pain or difficulty in breathing. He's been up ambulating without any difficulty. Good for coronary artery bypass grafting surgery on Saturday. 11/12/2017 Patient seen and examined this morning, he's been up ambulating in the hallway most of the day today. Denies any chest pain, his breathing has been stable. Hemodynamically he is stable. Patient is scheduled to undergo coronary artery bypass grafting surgery tomorrow at 8 AM. Objective - Vital Signs Vital signs: Vital Signs Temp 96.4 F L 11/12/17 11:45 Pulse 52 L 11/12/17 11:45 Resp 16 11/12/17 11:45 BP 121/68 11/12/17 11:45 Pulse Ox 97 11/12/17 11:45 Intake & Output 11/11/17 11/12/17 11/12/17 18:59 06:59 18:59 Intake Total 660 410 Output Total 1100 Balance -440 410 Weight 83.5 kg Intake: Oral 660 410 Output: Urine 1100 Other: Voiding Method Toilet Toilet # Voids 2 2 - Exam PHYSICAL EXAMINATION: HEENT: Head is atraumatic, normocephalic. Pupils equal, round. Neck is supple. There is no elevated jugular venous pressure. HEART EXAMINATION: Heart S1, S2 normal. No murmur or gallop heard. CHEST EXAMINATION: Lungs are clear to auscultation and precussion. No chest wall tenderness is noted on palpation or with deep breathing. ABDOMEN: Soft, nontender. Bowel sounds are heard. No organomegaly noted. EXTREMITIES: 2+ peripheral pulses with no evidence of peripheral edema and no calf tenderness noted. NEUROLOGIC patient is awake, alert and oriented -3. . - Labs CBC & Chem 7: 11/12/17 05:44 11/12/17 05:44 Labs: Abnormal Lab Results - Last 24 Hours (Table) 11/12/17 11/12/17 Range/Units 05:44 05:44 BUN 24 H (9-20) mg/dL AST 16 L (17-59) U/L ALT 14 L (21-72) U/L Crossmatch See Detail Assessment and Plan Plan: Assessment and Plan #1 triple-vessel coronary artery disease, status post cardiac catheterization, awaiting coronary bypass grafting surgery which is scheduled for Saturday. #2 ischemic cardiomyopathy #3 hyperlipidemia #4 COPD Plan I did have a discussion with the patient and his this morning, answering their questions, patient is scheduled to undergo coronary bypass grafting surgery on Saturday. DNP note has been reviewed, I agree with a documented findings and plan of care. Patient was seen and examined.
[2017-11-12] MEDS ORDERED: LIDOCAINE 1% 20 ML VIAL (10MG/ML) FOR IV START INTRADERMA PRN (19:03)
[2017-11-12] MEDS ORDERED: MIDAZOLAM 2 MG/2 ML VIAL IV PRN (19:03)
[2017-11-12] MEDS ORDERED: LACTATED RINGERS 1,000 ML IV SCH (19:15)
--- NOTE | 2017-11-12 21:57 | P.PN ---
Subjective Patient seen and examined by me at bedside Known new complaints No CP/SOB, no change in urine or bowel habits, no fever Patient is going for CABG tomorrow Objective - Vital Signs Vital signs: Vital Signs Temp 96.4 F L 11/12/17 11:45 Pulse 52 L 11/12/17 16:00 Resp 16 11/12/17 16:00 BP 116/66 11/12/17 16:00 Pulse Ox 98 11/12/17 16:00 Intake & Output 11/11/17 11/12/17 11/12/17 18:59 06:59 18:59 Intake Total 660 410 Output Total 1100 Balance -440 410 Weight 83.5 kg Intake: Oral 660 410 Output: Urine 1100 Other: Voiding Method Toilet Toilet # Voids 2 2 - Exam Constitutional: No acute distress, conversant, pleasant Eyes: Anicteric sclerae, moist conjunctiva, no lid-lag PERRLA ENMT: NC/AT Oropharynx clear, no erythema, exudates Neck: Supple, FROM, no masses, or JVD No carotid bruits No thyromegaly Lungs: Clear to auscultation Clear to percussion Normal respiratory effort, no accessory muscle use Cardiovascular: Heart regular in rate and rhythm, No murmurs, gallops, or rubs No peripheral edema Abdominal: Soft Nontender, no guarding, rebound or rigidity Abdomen moving with respiration Normoactive bowel sounds No hepatomegaly, No splenomegaly No palpable mass No abdominal wall hernia noted Skin: Normal temperature, tone, texture, turgor No induration No subcutaneous nodules No rash, lesions No ulcers Extremities: No digital cyanosis No clubbing Pedal pulses intact and symmetrical Radial pulses intact and symmetrical Normal gait and station No calf tenderness Psychiatric: Alert and oriented to person, place and time Appropriate affect Intact judgement Neuro: Muscles Strength 5/5 in all 4 extremities Sensation to light touch grossly present throughout Cranial nerves II-XII grossly intact No focal sensory deficits - Labs CBC & Chem 7: 11/12/17 05:44 11/12/17 05:44 Labs: Abnormal Lab Results - Last 24 Hours (Table) 11/12/17 11/12/17 Range/Units 05:44 05:44 BUN 24 H (9-20) mg/dL AST 16 L (17-59) U/L ALT 14 L (21-72) U/L Crossmatch See Detail Assessment and Plan Plan: Triple-vessel coronary artery disease. Status post elective cardiac catheterization on 11/08/2017. Preop workup for CABG in process Ischemic cardiomyopathy ejection fraction 30-35% with inferior wall akinesis Exertional short of breath and dizziness Family history of coronary disease Nicotine addiction Hyperlipidemia Osteoarthritis Possible underlying COPD with long-standing history of smoking DVT prophylaxis Plan: Patient will be continued on telemetry monitoring. the pt is scheduled for myocardial surgery tomorrow 11/13 We will continue statins and beta blockers. Smoking cessation has been counseled extensively. Pain management and further recommendations based on the clinical course.
[2017-11-13] MEDS ORDERED: NITROGLYCERIN-D5W PMX 50 MG in DEXTROSE/WATER 1 250ML.BAG IV ONE (05:00)
[2017-11-13] MEDS ORDERED: METOPROLOL TARTRATE 12.5 MG TAB PO ONE (05:00)
[2017-11-13] MEDS ORDERED: NITROGLYCERIN-D5W PMX 25 MG/250 ML BTL IV ONE (05:00)
[2017-11-13] MEDS ORDERED: ceFAZolin 2 GM in SODIUM CHLORIDE 0.9% 30 ML IVPB ONE (05:00)
[2017-11-13] MEDS ORDERED: ASPIRIN 325 MG TAB PO ONE (05:00)
[2017-11-13] MEDS ORDERED: MAGNESIUM SULFATE SYG 4.06 MEQ/ML SYRINGE IV ONE (05:00)
[2017-11-13] MEDS ORDERED: ATORVASTATIN 10 MG TAB PO ONE (05:00)
[2017-11-13] MEDS ORDERED: INSULIN REGULAR 100 UNIT in SODIUM CHLORIDE 0.9% 100 ML IV ONE (05:00)
[2017-11-13] MEDS ORDERED: PHENYLEPHRINE 40 MG in SODIUM CHLORIDE 0.9% 250 ML IV ONE (05:00)
[2017-11-13] MEDS ORDERED: CALCIUM CHLORIDE 100 MG/ML 10 ML SYRINGE IVP ONE (05:00)
[2017-11-13] MEDS ORDERED: ALBUMIN HUMAN 5% 500 ML in EMPTY BAG 1 BAG IVPB ONE ×6 (05:00)
[2017-11-13] MEDS ORDERED: CLEVIDIPINE BUTYRATE 25 MG in EMPTY BAG 1 BAG IV ONE (05:00)
[2017-11-13] MEDS ORDERED: ceFAZolin 2,000 MG in SODIUM CHLORIDE 0.9% 30 ML IVPB ONE (05:00)
[2017-11-13] MEDS ORDERED: HEPARIN SODIUM,PORCINE 5,000 UNIT in SODIUM CHLORIDE 0.9% 500 ML IV ONE (05:00)
[2017-11-13] MEDS ORDERED: DEXTROSE 5% IN WATER 1,000 ML with POTASSIUM CHLORIDE 110 MEQ, MAGNESIUM SULFATE 16 MEQ... IV SCH ×5 (05:00)
[2017-11-13] MEDS ORDERED: TRANEXAMIC ACID 2,000 MG in SODIUM CHLORIDE 0.9% 180 ML IV ONE (05:00)
[2017-11-13] MEDS ORDERED: HEPARIN SODIUM 1,000 UN/ML (10ML VL) IV ONE (05:00)
[2017-11-13] MEDS ORDERED: PHENYLEPHRINE-0.9% NACL SYG 1 MG/10 ML SYRINGE IV ONE ×4 (05:00)
[2017-11-13] MEDS ORDERED: CHLORHEXIDINE GLUCONATE 15 ML CUP MUCOUS MEM ONE (05:00)
[2017-11-13] MEDS ORDERED: PROTAMINE SULFATE 10 MG/ML 25 ML VIAL IV ONE (05:00)
[2017-11-13] MEDS ORDERED: PROTAMINE SULFATE 250 MG in EMPTY BAG 1 BAG IV ONE (05:00)
[2017-11-13] MEDS ORDERED: ceFAZolin 1,000 MG in SODIUM CHLORIDE 0.9% IRRIGATIO 1,000 ML IRRIGATION ONE (05:00)
[2017-11-13] MEDS ORDERED: PAPAVERINE 360 MG in SODIUM CHLORIDE 0.9% 90 ML IV ONE (05:00)
[2017-11-13] MEDS ORDERED: DEXTROSE 5% IN WATER 1,000 ML with POTASSIUM CHLORIDE 25 MEQ, SODIUM CHLORIDE 2.5MEQ/ML... IV SCH ×6 (05:00)
[2017-11-13] MEDS ORDERED: ALBUMIN HUMAN 25% 50 ML in EMPTY BAG 1 BAG IVPB ONE (05:00)
[2017-11-13] MEDS ORDERED: NOREPINEPHRIN 4 MG-0.9% NS PMX 4 MG/250 ML ML IV SCH (05:00)
[2017-11-13] MEDS ORDERED: MANNITOL 25% 12.5 GM/50 ML VIAL IV ONE ×2 (05:00)
[2017-11-13] MEDS ORDERED: fentaNYL (PF) 50 MCG/ML 20 ML VIAL IVP PRN (06:00)
[2017-11-13] MEDS ORDERED: IV FLUID CONTINUATION 900 ML IV ONE (06:22)
[2017-11-13 06:51] LABS: Glucose,Whole Blood 93 mg/dL (75-99)
[2017-11-13] MEDS ORDERED: SODIUM CHLORIDE 0.9% IRRIG 1,000 ML BTL IRRIGATION ONE (08:05)
[2017-11-13] MEDS ORDERED: ALBUMIN HUMAN 5% 500 ML VIAL IVPB ONE (08:05)
[2017-11-13] MEDS ORDERED: HEPARIN SODIUM,PORCINE 10,000 UNIT/ML 1 ML VIAL ONE (08:05)
[2017-11-13] MEDS ORDERED: fentaNYL (PF) 50 MCG/ML 50 ML VIAL ONE (08:05)
[2017-11-13] MEDS ORDERED: VECURONIUM 10 MG VIAL IV ONE (08:05)
[2017-11-13] MEDS ORDERED: TRANEXAMIC ACID 1,000 MG/10 ML VIAL ONE (08:05)
[2017-11-13] MEDS ORDERED: fentaNYL (PF) 50 MCG/ML 2 ML AMP ONE (08:05)
[2017-11-13] MEDS ORDERED: ELECTROLYTE-R (PH 7.4) 1,000 ML IV.SOLN IV ONE (08:05)
[2017-11-13] MEDS ORDERED: MAGNESIUM SULFATE 4 MEQ/ML 2 ML VIAL ONE (08:05)
[2017-11-13] MEDS ORDERED: PROPOFOL 10 MG/ML 20 ML VIAL IV ONE (08:05)
[2017-11-13] MEDS ORDERED: SUCCINYLCHOLINE CHLORIDE 100 MG/5 ML SYR IV ONE (08:05)
[2017-11-13] MEDS ORDERED: MIDAZOLAM 2 MG/2 ML VIAL ONE (08:05)
[2017-11-13] MEDS ORDERED: LIDOCAINE 2% SYG (PF) 100 MG/5 ML ONE (08:05)
[2017-11-13] MEDS ORDERED: SODIUM CHLORIDE 0.9% 250 ML BAG ONE (08:05)
[2017-11-13] MEDS ORDERED: PROPOFOL 1,000 MG in EMPTY BAG 1 BAG IV ONE (08:11)
[2017-11-13] MEDS ORDERED: SODIUM BICARB 8.4% 50 ML SYR (1 MEQ/ML) IV ONE (08:11)
--- NOTE | 2017-11-13 14:03 | P.PN ---
Subjective i came to see pt , he is still in surgery Objective - Vital Signs Vital signs: Vital Signs Temp 97.7 F 11/13/17 06:29 Pulse 61 11/13/17 06:29 Resp 16 11/13/17 06:29 BP 148/90 11/13/17 06:29 Pulse Ox 98 11/13/17 06:29 Intake & Output 11/12/17 11/13/17 11/13/17 18:59 06:59 18:59 Intake Total 410 33 Balance 410 33 Weight 83.1 kg Intake: IV 33 Oral 410 Other: Voiding Method Toilet Toilet # Voids 2 1 - Exam not done - Labs CBC & Chem 7: 11/12/17 05:44 11/12/17 05:44 Labs: Abnormal Lab Results - Last 24 Hours (Table) 11/12/17 Range/Units 05:44 Crossmatch See Detail Assessment and Plan Plan: Triple-vessel coronary artery disease. Status post elective cardiac catheterization on 11/08/2017. Preop workup for CABG in process Ischemic cardiomyopathy ejection fraction 30-35% with inferior wall akinesis Exertional short of breath and dizziness Family history of coronary disease Nicotine addiction Hyperlipidemia Osteoarthritis Possible underlying COPD with long-standing history of smoking DVT prophylaxis Plan: pt is at surgery today
[2017-11-13] MEDS ORDERED: ALBUMIN HUMAN 5% 250 ML IVPB ONE (14:18)
--- NOTE | 2017-11-13 14:28 | OP ---
OPERATIVE REPORT DATE OF THE SURGERY: 11/13/2017. SURGEON: Dr. Marjorie Rucker. STICK WELDER: Dank SANCHEZ, and Ramez Noland NP.. PREOPERATIVE DIAGNOSIS: Triple-vessel coronary artery disease, totally occluded right coronary artery and mid- left anterior descending artery, ischemic cardiomyopathy with moderate to severe left ventricular dysfunction, syncopal episodes, multiple premature ventricular contractions, tobacco abuse, hyperlipidemia. POSTOPERATIVE DIAGNOSIS: Triple-vessel coronary artery disease, totally occluded right coronary artery and mid- left anterior descending artery, ischemic cardiomyopathy with moderate to severe left ventricular dysfunction, syncopal episodes, multiple premature ventricular contractions, tobacco abuse, hyperlipidemia with evidence of an old mid to distal anteroapical myocardial infarction with thinning and adhesions. PROCEDURE: 1. Triple-vessel coronary artery bypass grafting using the left internal mammary artery to the distal left anterior descending artery; reverse saphenous vein graft from the aorta to the diagonal artery; reverse saphenous vein graft from the aorta to the posterior descending artery. 2. Endoscopic harvesting of the left greater saphenous vein. 3. Intraoperative transesophageal echocardiogram and epiaortic scanning. 4. Intraoperative graft flow measurements using the Medi stem system. INDICATION FOR SURGERY: Patient is a 57-year-old gentleman who presented to his primary care physician in view of a couple of episodes of syncope and near syncope. He was sent to Cardiology and workup included a 2D echo that showed moderate to severe left ventricular dysfunction. Cardiac catheterization followed and that showed a totally occluded superdominant right coronary artery, collateralized from a left system. The left anterior descending artery was also totally occluded after the mid aspect and reconstituted. This circumflex system was small. There was a large first diagonal artery, giving a good part of the lateral wall. The patient is brought in today for coronary artery bypass grafting. Risks, benefits, and alternatives including the STF risk were discussed with him and his . They understood it and agreed to proceed. DESCRIPTION OF THE PROCEDURE: Patient in supine position, the right internal jugular [place]-Paulo catheter and a right radial arterial line were placed. Patient had normal PA pressure and good cardiac index of 3.3. He was brought to the operating room where general endotracheal anesthesia was induced uneventfully. He had received 2 g of cefazolin intravenously. A Wallis catheter was inserted. The chest, abdomen and both lower extremities were prepped and draped using ChloraPrep. Ioban was used to cover the skin. Transesophageal echocardiogram confirmed the preoperative finding of no significant valvular abnormalities and evidence of moderate left ventricular dysfunction with akinetic distal anteroapical wall and inferoseptal wall. Midline sternotomy was performed and no bone wax was used. The left mercedes sternum was elevated and the left internal mammary artery was harvested in a semi- skeletonized fashion. The left pleura was intentionally opened in this process and was drained with a 28-Emirati chest tube. The right pleura remained intact. In the same setting, the left greater saphenous vein was harvested endoscopically from groin to below-knee level after administration of 1500 units of heparin. The vein was of excellent quality around 4 mm in diameter. The leg incisions were closed over a drain. Mediastinal fat was transected between two ties and epiaortic scanning revealed normal ascending aorta. The right lung was overriding the midline to the left side. The pericardium was opened in an inverted T-fashion and pericardial cradle was created. Findings included an enlarged heart and adhesions that were thick and dense between the mid to distal anteroapical wall and the pericardium. After systemic heparinization and after placement of respective pledgeted pursestring, aortic cannulation with a 21-Emirati soft flow cannula, venous cannulation with a dual stage cannula via the right atrial appendage was performed. Antegrade as well as retrograde cardioplegia catheter were placed. The left internal mammary artery was double clipped distally and transected had an excellent pulsatile flow in it and was around 1.5 mm in diameter. This vein as mentioned above was of good quality around 4 mm in diameter. Cardiopulmonary Bypass was initiated and patient's temperature was allowed to drift down to 34C. The adhesions between the left ventricle and its mid to distal aspect and the pericardium were lysed sharply. There was no injury to the left ventricle subsequently. The LAD appeared to be intact pericardial. The mid to distal lateral apical wall was thinned out and umbilicating. The LAD was found in its mid to distal aspect and there was a soft spot. The first diagonal artery was also identified proximally and seemed to be serving most of the anterolateral wall. There were small obtuse marginal branches clearly not bypassable as seen on cath. The right coronary was hard into epicardial up to its bifurcation. The posterior descending artery was identified and was soft and of good caliber. During aortic clamping myocardial protection was achieved with initial dose of 700 mL of antegrade cold blood could appear to followed by 500 mL of retrograde cold blood cardioplegia. All subsequent doses were given retrograde at 15 minutes interval as well as through the constructed saphenous graft to the posterior descending artery in order to ensure optimal right/left ventricular protection in this patient with a superdominant totally occluded right coronary artery. The first distal anastomosis was between a segment of reverse saphenous vein graft and the posterior descending artery which was around 1.75 m in diameter thin-walled using Prolene 70 in continuous fashion. That vein was connected to the retrograde could appreciate delivery system via side-arm. The second anastomosis was between a segment of vein and the first diagonal artery which was around 1.75 minutes in diameter thin-walled using Prolene 70 continuous fashion. The last distal anastomosis was in the left internal mammary artery and the distal left anterior descending artery which was opened in a soft spot after diffuse disease segment. It was around 1.5 m in diameter thin-walled. Satisfied with the distal anastomosis rewarming was started. 2 bottles a 5 mm each were pushed out of the ascending aorta and the 2 proximal anastomosis completed using Prolene 60 in continuous fashion. Patient was loaded with Primacor, given lidocaine and magnesium before unclamping the aorta. Patient regained spontaneous sinus rhythm. All anastomosis appeared to be hemostatic. After repeated of reperfusion we were able to wean off cart coronary bypass with excellent with an Amicar low-dose Primacor and Levophed. Transesophageal echocardiogram showed somewhat improved left ventricle function and no significant valvular abnormality. Graft flow measurement at this point revealed excellent parameters the flow into the left internal mammary artery to the left anterior descending artery was 31 mL/m, pulsatility index of 1.5 and diastolic filling of 66%. The flow into the vein graft going to the posterior descending artery was 185 mL/m, also didn't index of 1.3 and diastolic filling of 73%. The flow into the vein graft to the diagonal artery was 121 mL/m, pulsatility index of 1.8 diastolic filling with 82% showing excellent functioning grafts. Test dose and full dose protamine was given. Decannulation followed. 2 monopolar H pace wires were affixed to the right atrial respective pursestrings. One bipolar ventricular pacing wire was driven via the inferior aspect of the right ventricle. One 36-Emirati substernal chest tube was placed. A groove was made in the left pleuropericardial fat to accommodate the mammary artery medial to the lung and away from the posterior sternal table. After ensuring adequate hemostasis and hemodynamics and after correct sponsorship and needle count, the sternum was isolated using 5 [id number] year cables after interposing fibrillar between the sternal edges. Thorough irrigation with cefazolin followed. The rest of the closure proceeded in layers. Skin glue was applied. Patient did not receive any blood bank product but received 450 mL of Cell Saver blood. Was transferred to the ICU with excellent hemodynamic with a cardiac index of 3.40. Pressure on low dose Primacor and Levophed. MMODL / IJN: [id number] / MTDD
[2017-11-13] MEDS ORDERED: ONDANSETRON 4 MG/2 ML VIAL IVP PRN (14:34)
[2017-11-13] MEDS ORDERED: Phosphorus Replacement Protoco 1 EACH MISC MISCELLANE PRN (14:34)
[2017-11-13] MEDS ORDERED: PROPOFOL 1,000 MG in EMPTY BAG 1 BAG IV SCH (14:34)
[2017-11-13] MEDS ORDERED: DEXTROSE 5% IN WATER 100 ML with AMIODARONE 150 MG IV PRN (14:34)
[2017-11-13] MEDS ORDERED: MORPHINE SULFATE 4 MG/ML SYRINGE IVP PRN (14:34)
[2017-11-13] MEDS ORDERED: Magnesium Replacement Protocol 1 EACH MISC MISCELLANE PRN (14:34)
[2017-11-13] MEDS ORDERED: Potassium Replacement Protocol 1 EACH MISC MISCELLANE PRN (14:34)
[2017-11-13] MEDS ORDERED: CALCIUM GLUCONATE 2,000 MG in SODIUM CHLORIDE 0.9% 100 ML IVPB PRN (14:34)
[2017-11-13] MEDS ORDERED: AMIODARONE 450 MG in DEXTROSE 5% IN WATER 250 ML IV PRN ×2 (14:34)
[2017-11-13 14:47] LABS: Glucose,Whole Blood 106 mg/dL (75-99)
--- NOTE | 2017-11-13 14:54 | XR ---
EXAMINATION TYPE: XR chest 1V portable DATE OF EXAM: 11/13/2017 COMPARISON: 11/08/2017 HISTORY: Post cardiac surgery. TECHNIQUE: Single frontal view of the chest is obtained. FINDINGS: There is a right [place]-Paulo catheter from a right internal jugular approach, properly place d in the region of the pulmonary outflow tract. Left thoracostomy tube is seen overlying the left low er lung. Post CABG changes of the chest are identified. Midline mediastinal drain is seen. Endotrache al tube slightly cephalad in position terminating approximately 3 cm from the aortic arch and approxi mately 8 cm from the tyrel. Enteric tube is appropriately placed with its fenestrated portion beyond the gastroesophageal junction. There is minimal left basilar subsegmental linear atelectasis. Remain juany the lungs are clear. Cardiomediastinal silhouette is stable. No postprocedural pulmonary vascular congestion. Osseous structures are grossly intact IMPRESSION: 1. Slight cephalad placement of the endotracheal tube. This could be advanced approximately 3 cm for optimal placement. 2. Interval insertion of multiple additional satisfactorily placed lines and tubes as described above with post CABG changes of the chest. 3. Minimal left basilar subsegmental atelectasis.
[2017-11-13 15:03] LABS: ABG Base Excess 1.3 mmol/L; ABG HCO3 27 mmol/L (21-25); ABG Oxygen Saturation 99.9 % (94-97); ABG PCO2 50 mmHg (35-45); ABG PH 7.34 (7.35-7.45); ABG PO2 295 mmHg (83-108); ABG TCO2 29 mmol/L (19-24)
[2017-11-13 15:05] LABS: Ionized Calcium 4.9 mg/dL (4.5-5.3)
[2017-11-13 15:12] LABS: Basophils % (A) 0 %; Eosinophils # (A) 0.1 k/uL (0-0.7); Eosinophils % (A) 1 %; HCT 30.4 % (39.0-53.0); Lymphocytes # (A) 1.4 k/uL (1.0-4.8); Lymphocytes % (A) 13 %; MCH 31.6 pg (25.0-35.0); MCHC 34.8 g/dL (31.0-37.0); MCV 90.7 fL (80.0-100.0); Mean Platelet Volume 7.5; Monocytes # (A) 1.2 k/uL (0-1.0); Monocytes % (A) 10 %; Neutrophils # (A) 8.5 k/uL (1.3-7.7); Neutrophils % (A) 75 %; Platelet Count 143 k/uL (150-450); RBC 3.35 m/uL (4.30-5.90); RDW 12.6 % (11.5-15.5); WBC 11.3 k/uL (3.8-10.6)
[2017-11-13 15:14] LABS: ALT 22 U/L (21-72); AST 23 U/L (17-59); Albumin 2.5 g/dL (3.5-5.0); Alkaline Phosphatase 30 U/L (38-126); Anion Gap 8 mmol/L; Blood Urea Nitrogen 16 mg/dL (9-20); Calcium 7.5 mg/dL (8.4-10.2); Carbon Dioxide 26 mmol/L (22-30); Chloride 108 mmol/L (98-107); Glucose 89 mg/dL (74-99); HGB 10.6 gm/dL (13.0-17.5); INR 1.4 (<1.2); Magnesium 2.5 mg/dL (1.6-2.3); Potassium 3.8 mmol/L (3.5-5.1); Prothrombin Time 13.1 sec (9.0-12.0); Sodium 142 mmol/L (137-145); Total Bilirubin 0.6 mg/dL (0.2-1.3)
[2017-11-13] MEDS ORDERED: NITROGLYCERIN-D5W PMX 50 MG in DEXTROSE/WATER 1 250ML.BAG IV SCH (15:15)
[2017-11-13] MEDS ORDERED: NOREPINEPHRINE 4 MG in SODIUM CHLORIDE 0.9% 250 ML IV SCH (15:15)
--- NOTE | 2017-11-13 15:34 | P.PN ---
Subjective Progress Note Date: 11/13/17 On 11/13 2017 I'm seeing this patient immediately after he arrived from the operating room. The patient is currently sedated, intubated on a mechanical ventilator. He is on 10 mics of propofol infusion. He is on assist control mode at the rate of 10 initially which I bumped it up to 20 , and addition to her tidal volume 600, FiO2 of 60% and a PEEP of 5. The chest x-ray showed adequate expansion of both lungs. No pneumothorax. ET tube is in a good location. The patient has a mediastinal and left pleural chest tube and the right IJ [place]-Paulo catheter in place. The patient had a blood gas that showed a pH of 7.34 with a pCO2 of 50 and pO2 of 295 and this was on FiO2 of 100%. Postoperative hemoglobin is at 10.6. Hemodynamically, he has an adequate cardiac index, PA pressures 30/17, CVP is at 12. The output from the left pleural chest tube is 85 mL and a mediastinal chest tube is 45 mL since the patient arrived from the operating room. His current temperature is 97.7 and his only a few mics of norepinephrine infusion for blood pressure control. He is also on nitroglycerin drip per protocol. Cardiac rhythm is sinus. The patient has a backup pacemaker generator the rate of 50, VVI. Objective - Vital Signs Vital signs: Vital Signs Temp 97.7 F 11/13/17 06:29 Pulse 64 11/13/17 15:15 Resp 13 11/13/17 15:15 BP 148/90 11/13/17 06:29 Pulse Ox 100 11/13/17 15:15 Intake & Output 11/12/17 11/13/17 11/13/17 18:59 06:59 18:59 Intake Total 410 33 Output Total 2029 Balance 410 -1996 Weight 83.1 kg Intake: IV 33 Oral 410 Output: Chest Tube Drainage 130 Left Pleural 85 Mediastinal 45 Urine 700 Estimated Blood Loss 1200 Other: Voiding Method Toilet Toilet # Voids 2 1 ABP, PAP, CO, CI - Last Documented Arterial Blood Pressure 110/53 Pulmonary Artery Pressure 30/17 Cardiac Output 6.5 Cardiac Index 3.2 - Exam Gen. appearance the patient, comfortable likely distress, sedated, sick visit a mechanical ventilator. Intubated, orogastric and orotracheal tube are both in place. Head exam was generally normal. There was no scleral icterus or corneal arcus. Mucous membranes were moist. Neck was supple and without jugular venous distension, thyromegaly, or carotid bruits. Carotids were easily palpable bilaterally. There was no adenopathy. The patient has a right IJ [place]-Paulo catheter in place. Lungs sounds are equal and symmetrical bilaterally. Sternum stable clean and intact. Chest tubes are all in place. Cardiac exam revealed the PMI to be normally situated and sized. The rhythm was regular and no extrasystoles were noted during several minutes of auscultation. The first and second heart sounds were normal and physiologic splitting of the second heart sound was noted. There were no murmurs, rubs, clicks, or gallops. No significant rubs or murmurs. Abdominal exam revealed normal bowel sounds. The abdomen was soft, non-tender, and without masses, organomegaly, or appreciable enlargement of the abdominal aorta. Examination of the extremities revealed easily palpable radial, femoral and pedal pulses. There was no cyanosis, clubbing or edema. Pulses are equal and symmetrical bilaterally. Neurologic the patient is sedated and is calm and comfortable. - Labs CBC & Chem 7: 11/13/17 14:45 11/13/17 14:45 Labs: Abnormal Lab Results - Last 24 Hours (Table) 11/12/17 11/13/17 11/13/17 Range/Units 05:44 14:44 14:45 WBC 11.3 H (3.8-10.6) k/uL RBC 3.35 L (4.30-5.90) m/uL Hgb 10.6 L D (13.0-17.5) gm/dL Hct 30.4 L (39.0-53.0) % Plt Count 143 L (150-450) k/uL Neutrophils # 8.5 H (1.3-7.7) k/uL Monocytes # 1.2 H (0-1.0) k/uL PT (9.0-12.0) sec INR (<1.2) APTT (22.0-30.0) sec ABG pH (7.35-7.45) ABG pCO2 (35-45) mmHg ABG pO2 (83-108) mmHg ABG HCO3 (21-25) mmol/L ABG Total CO2 (19-24) mmol/L ABG O2 Saturation (94-97) % Chloride (98-107) mmol/L POC Glucose (mg/dL) 106 H (75-99) mg/dL Calcium (8.4-10.2) mg/dL Magnesium (1.6-2.3) mg/dL Alkaline Phosphatase (38-126) U/L Total Protein (6.3-8.2) g/dL Albumin (3.5-5.0) g/dL Crossmatch See Detail 11/13/17 11/13/17 11/13/17 Range/Units 14:45 14:45 14:58 WBC (3.8-10.6) k/uL RBC (4.30-5.90) m/uL Hgb (13.0-17.5) gm/dL Hct (39.0-53.0) % Plt Count (150-450) k/uL Neutrophils # (1.3-7.7) k/uL Monocytes # (0-1.0) k/uL PT 13.1 H (9.0-12.0) sec INR 1.4 H (<1.2) APTT 38.0 H (22.0-30.0) sec ABG pH 7.34 L (7.35-7.45) ABG pCO2 50 H (35-45) mmHg ABG pO2 295 H (83-108) mmHg ABG HCO3 27 H (21-25) mmol/L ABG Total CO2 29 H (19-24) mmol/L ABG O2 Saturation 99.9 H (94-97) % Chloride 108 H (98-107) mmol/L POC Glucose (mg/dL) (75-99) mg/dL Calcium 7.5 L (8.4-10.2) mg/dL Magnesium 2.5 H (1.6-2.3) mg/dL Alkaline Phosphatase 30 L (38-126) U/L Total Protein 4.0 L (6.3-8.2) g/dL Albumin 2.5 L (3.5-5.0) g/dL Crossmatch Assessment and Plan Plan: Assessment 1 multivessel coronary artery disease status post triple-vessel bypass surgery. Patient is postop day #0. Patient is currently in the intensive care unit. Remains intubated on a mechanical ventilator. Chest x-ray was noted. Blood gases was noted. Hemodynamic parameters are all noted. The patient is on few mics of norepinephrine infusion for blood pressure control. Adequate cardiac index. Adequate filling pressures. 2 post thoracotomy currently on mechanical ventilator, and expected outcome of bypass surgery 3 ischemic artery myopathy with an ejection fraction of 30-35% 4 COPD mild at baseline 5 hyperlipidemia Plan Increase the respiratory rate up to 20. Keep tidal volume of 600. Drop down the FiO2 gradually to maintain a saturation above 92%. Cut down gradually the sedation and proceed with weaning protocol. And severe extubation within next 4 -6 hours. Hemodynamically stable. No other significant cardiac events postop for now. Chest but output is minimal. Continue current treatment further recommendations are to follow.
[2017-11-13] MEDS: LACTATED RINGERS 1,000 ML IV SCH (15:51)
[2017-11-13] MEDS: ceFAZolin IN SWFI 2 GM/20 ML SYRINGE IVP SCH ×2 (15:53→23:00)
[2017-11-13] MEDS ORDERED: IPRATROPIUM-ALBUTEROL 3 ML NEB INHALATION SCH (16:00)
[2017-11-13] MEDS ORDERED: INSULIN REGULAR 100 UNIT in SODIUM CHLORIDE 0.9% 100 ML IV SCH (16:00)
[2017-11-13 16:15] LABS: Glucose,Whole Blood 98 mg/dL (75-99)
[2017-11-13 16:37] LABS: ABG Base Excess -0.7 mmol/L; ABG HCO3 26 mmol/L (21-25); ABG Oxygen Saturation 93.2 % (94-97); ABG PCO2 50 mmHg (35-45); ABG PH 7.31 (7.35-7.45); ABG PO2 70 mmHg (83-108); ABG TCO2 27 mmol/L (19-24)
[2017-11-13 17:15] LABS: Glucose,Whole Blood 128 mg/dL (75-99)
[2017-11-13] MEDS: ACETAMINOPHEN IV (For NPO) 1,000 MG in EMPTY BAG 1 BAG IVPB SCH ×2 (17:19→23:01)
[2017-11-13] MEDS: POTASSIUM CHLORIDE 10 MEQ in WATER FOR INJECTION 1 100ML.BAG IVPB SCH ×2 (17:40→18:40)
[2017-11-13 17:42] LABS: Basophils % (A) 0 %; Eosinophils # (A) 0.1 k/uL (0-0.7); Eosinophils % (A) 1 %; HCT 38.3 % (39.0-53.0); HGB 12.6 gm/dL (13.0-17.5); Lymphocytes # (A) 1.9 k/uL (1.0-4.8); Lymphocytes % (A) 13 %; MCH 30.8 pg (25.0-35.0); MCHC 32.9 g/dL (31.0-37.0); MCV 93.7 fL (80.0-100.0); Mean Platelet Volume 7.7; Monocytes # (A) 1.3 k/uL (0-1.0); Monocytes % (A) 9 %; Neutrophils # (A) 11.5 k/uL (1.3-7.7); Neutrophils % (A) 77 %; Platelet Count 171 k/uL (150-450); RBC 4.08 m/uL (4.30-5.90); WBC 14.8 k/uL (3.8-10.6)
[2017-11-13 18:05] LABS: Glucose,Whole Blood 131 mg/dL (75-99)
[2017-11-13] MEDS: CLEVIDIPINE BUTYRATE 25 MG in EMPTY BAG 1 BAG IV SCH ×3 (18:17→23:11)
[2017-11-13 19:15] LABS: Glucose,Whole Blood 127 mg/dL (75-99)
[2017-11-13 20:05] LABS: Glucose,Whole Blood 120 mg/dL (75-99)
[2017-11-13] MEDS: MUPIROCIN 2% OINT 22 GM TUBE NASAL SCH (20:09)
[2017-11-13 20:35] LABS: Basophils % (A) 0 %; Eosinophils % (A) 0 %; HCT 33.7 % (39.0-53.0); HGB 11.3 gm/dL (13.0-17.5); Lymphocytes # (A) 0.7 k/uL (1.0-4.8); Lymphocytes % (A) 5 %; MCH 30.5 pg (25.0-35.0); MCHC 33.4 g/dL (31.0-37.0); MCV 91.4 fL (80.0-100.0); Mean Platelet Volume 7.3; Monocytes # (A) 1.1 k/uL (0-1.0); Monocytes % (A) 9 %; Neutrophils % (A) 85 %; Platelet Count 171 k/uL (150-450); RBC 3.69 m/uL (4.30-5.90); RDW 12.7 % (11.5-15.5)
[2017-11-13 20:50] LABS: Glucose,Whole Blood 125 mg/dL (75-99)
[2017-11-13] MEDS: HEPARIN SODIUM,PORCINE 5,000 UNIT/ML 1 ML VIAL SQ SCH (21:49)
[2017-11-13 21:57] LABS: Glucose,Whole Blood 109 mg/dL (75-99)
[2017-11-13 23:01] LABS: Glucose,Whole Blood 114 mg/dL (75-99)
[2017-11-14 00:21] LABS: Glucose,Whole Blood 113 mg/dL (75-99)
[2017-11-14 00:56] LABS: Glucose,Whole Blood 119 mg/dL (75-99)
[2017-11-14 02:01] LABS: Glucose,Whole Blood 123 mg/dL (75-99)
[2017-11-14] MEDS: CLEVIDIPINE BUTYRATE 25 MG in EMPTY BAG 1 BAG IV SCH ×2 (02:12→06:42)
[2017-11-14 02:46] LABS: Glucose,Whole Blood 135 mg/dL (75-99)
[2017-11-14 03:44] LABS: Glucose,Whole Blood 114 mg/dL (75-99)
[2017-11-14 04:22] LABS: Basophils % (A) 0 %; Eosinophils # (A) 0.1 k/uL (0-0.7); Eosinophils % (A) 1 %; HCT 33.3 % (39.0-53.0); Lymphocytes % (A) 11 %; MCH 30.5 pg (25.0-35.0); MCHC 32.9 g/dL (31.0-37.0); MCV 92.5 fL (80.0-100.0); Mean Platelet Volume 8.5; Monocytes # (A) 1.1 k/uL (0-1.0); Monocytes % (A) 12 %; Neutrophils # (A) 7.1 k/uL (1.3-7.7); Neutrophils % (A) 76 %; Platelet Count 146 k/uL (150-450); RDW 13.1 % (11.5-15.5); WBC 9.3 k/uL (3.8-10.6)
[2017-11-14 04:33] LABS: Ionized Calcium 4.7 mg/dL (4.5-5.3)
[2017-11-14 04:37] LABS: INR 1.2 (<1.2); Prothrombin Time 11.7 sec (9.0-12.0)
[2017-11-14 04:47] LABS: ALT 12 U/L (21-72); AST 27 U/L (17-59); Albumin 2.9 g/dL (3.5-5.0); Alkaline Phosphatase 35 U/L (38-126); Anion Gap 8 mmol/L; Blood Urea Nitrogen 17 mg/dL (9-20); Calcium 8.1 mg/dL (8.4-10.2); Carbon Dioxide 24 mmol/L (22-30); Chloride 106 mmol/L (98-107); Glucose 110 mg/dL (74-99); Magnesium 2.1 mg/dL (1.6-2.3); Potassium 4.2 mmol/L (3.5-5.1); Sodium 138 mmol/L (137-145); Total Protein 4.6 g/dL (6.3-8.2)
[2017-11-14 05:52] LABS: Glucose,Whole Blood 111 mg/dL (75-99)
[2017-11-14] MEDS: ACETAMINOPHEN IV (For NPO) 1,000 MG in EMPTY BAG 1 BAG IVPB SCH ×3 (06:39→17:22)
--- NOTE | 2017-11-14 07:08 | XR ---
EXAMINATION TYPE: XR chest 1V portable DATE OF EXAM: 11/14/2017 CLINICAL HISTORY: Post open cardiac surgery progress study. TECHNIQUE: Single AP portable upright view of the chest is obtained. COMPARISON: Chest x-ray from one day earlier and older studies. FINDINGS: There is interval extubation with removal of endotracheal and orogastric tubes. There is p ersistent left basilar chest tube and mediastinal drainage catheter projecting to left of midline. Th ere is stable right internal jugular [place]-Paulo catheter. Post CABG changes with mediastinal clips and sternal wires is redemonstrated. Diminished inspiration is seen on current study. There is new bibasilar opacity consistent with atele ctasis and/or infiltrate. Suspect small bilateral pleural effusions. No sizable pneumothorax is seen bilaterally. Cardiac silhouette size is stable and mildly enlarged. Osseous structures are intact. IMPRESSION: Interval extubation. Diminished inspiration with new bibasilar atelectasis and/or infiltr ate and probable small bilateral pleural effusions. Left-sided chest tube and cardiomegaly redemonstr ated.
[2017-11-14] MEDS ORDERED: IPRATROPIUM-ALBUTEROL 3 ML NEB INHALATION PRN ×2 (08:07→14:19)
[2017-11-14] MEDS ORDERED: KETOROLAC 30 MG/ML 1 ML VIAL ONE (08:10)
[2017-11-14] MEDS: IPRATROPIUM-ALBUTEROL 3 ML NEB INHALATION SCH ×4 (08:11→19:07)
[2017-11-14] MEDS: KETOROLAC 30 MG/ML 1 ML VIAL IVP SCH ×3 (08:12→23:23)
[2017-11-14] MEDS: MUPIROCIN 2% OINT 22 GM TUBE NASAL SCH ×2 (08:18→20:20)
[2017-11-14] MEDS: HEPARIN SODIUM,PORCINE 5,000 UNIT/ML 1 ML VIAL SQ SCH ×3 (08:20→23:23)
[2017-11-14] MEDS: ceFAZolin IN SWFI 2 GM/20 ML SYRINGE IVP SCH (08:20)
[2017-11-14] MEDS: ASPIRIN 325 MG TAB PO SCH (08:21)
[2017-11-14] MEDS: CLOPIDOGREL 75 MG TAB PO SCH (08:22)
[2017-11-14] MEDS: ATORVASTATIN 40 MG TAB PO SCH (08:22)
[2017-11-14] MEDS: METOPROLOL TARTRATE 25 MG TAB PO SCH ×2 (08:22→20:20)
[2017-11-14] MEDS ORDERED: METOPROLOL TARTRATE 12.5 MG TAB PO SCH (09:00)
[2017-11-14] MEDS ORDERED: PANTOPRAZOLE 40 MG/10 ML VIAL IVP SCH (09:00)
[2017-11-14 10:06] VITALS: BMI 24.8
--- NOTE | 2017-11-14 10:57 | P.PN ---
Subjective Progress Note Date: 11/14/17 Principal diagnosis: Symptomatic multivessel coronary artery disease, history of recurrent dizzy spells, ischemic cardiomyopathy with an ejection fraction of 30-35%, moderate LV dysfunction with akinesis in the inferior wall and posterior wall and apex, preventricular contractions, current long-standing history of tobacco dependence , hyperlipidemia, strong family history of coronary artery disease and need for bypass surgery, his sister was diagnosed with coronary artery disease at age 58 , history of COPD with a preoperative FEV1 of 72% of predicted and osteoarthritis. POD #1 triple-vessel coronary artery bypass grafting using the left internal mammary artery to the distal left anterior descending coronary artery, a reverse greater saphenous vein graft from the aorta to the diagonal coronary artery, a reverse greater saphenous vein graft from the aorta to the posterior descending coronary artery. Endoscopic harvesting of the left greater saphenous vein, intraoperative transesophageal echocardiogram, epi-aortic scanning and intraoperative graft flow measurement using the [place] system. The patient is sitting up to the bedside chair. He is in no acute distress. Patient currently is complaining of pain to his chest tube insertion sites rating his pain 4 out of 10 on the pain scale. He is up ambulating in the hallway with minimal assistance. His is at his bedside questions answered to the best of my ability. He is complaining of some faint right sided leg numbness. Objective - Vital Signs Vital signs: Vital Signs Temp 99.9 F H 11/14/17 06:00 Pulse 80 11/14/17 08:24 Resp 29 H 11/14/17 06:00 BP 98/62 11/14/17 06:00 Pulse Ox 96 11/14/17 06:00 Intake & Output 11/13/17 11/14/17 11/14/17 18:59 06:59 18:59 Intake Total 797.415 3453.99 Output Total 3375 1630 Balance -3136.767 -98.01 Weight 87.9 kg 87.9 kg Intake: IV 33 1238 ACETAMINOPHEN IV (For NPO 200 ) 1,000 mg In Empty Bag 1 bag @ 400 mls/hr IVPB Q6HR [facility] Rx#:[id number] Albumin Human 5% 250 ml 250 In Empty Bag 1 bag @ 250 mls/hr IVPB Q1HR PRN Rx#: [id number] CO/CI 80 Lactated Ringers 1,000 ml 600 @ 50 mls/hr IV .Q20H [facility] Rx#:[id number] Pressure Bag 108 Intake, IV Titration 205.233 53.99 Amount Clevidipine Butyrate 25 1.5 mg In Empty Bag 1 bag @ 1 MG/HR 2 mls/hr IV .Q24H [facility] Rx#:[id number] Clevidipine Butyrate 25 3.733 mg In Empty Bag 1 bag @ 8 MG/HR 16 mls/hr IV . Q3H8M [facility] Rx#:[id number] Insulin Regular 100 unit 3.99 In Sodium Chloride 0.9% 100 ml @ Per Protocol IV .Q0M [facility] Rx#:[id number] Lactated Ringers 1,000 ml 200 50 @ 50 mls/hr IV .Q20H [facility] Rx#:[id number] Oral 240 Output: Chest Tube Drainage 510 675 Left Pleural 80 195 Mediastinal 430 480 Drainage 35 Left Lower Calf 35 Urine 1665 920 Estimated Blood Loss 1200 Other: Voiding Method Indwelling Catheter Indwelling Catheter # Voids 1 ABP, PAP, CO, CI - Last Documented Arterial Blood Pressure 94/50 Pulmonary Artery Pressure 24/14 Cardiac Output 5.4 Cardiac Index 2.6 - Constitutional General appearance: Present: cooperative, no acute distress, thin - Respiratory Details: Lung sounds are essentially clear throughout, diminished to his bilateral bases. Respirations are symmetrical and nonlabored. Oxygen saturation are 96% on 2 L nasal cannula. He is achieving 1000 L on his incentive spirometry. Mediastinal and left pleural chest tubes to low continuous wall suction -20 cm H2O. No air leak present. Chest tubes are draining thin serosanguineous drainage. Mediastinal chest tube drained 280 mL in 8 hours, 850 mL since surgery. Left pleural chest tube drained 145 mL in 8 hours, 250 mL since surgery. - Cardiovascular Details: Regular rhythm and rate. S1 and S2 present, negative for S3, gallop or murmur. Sternum is stable. Bedside telemetry showing normal sinus rhythm heart rate 84. Atrial and ventricular epicardial pacemaker wires intact and grounded. Heart hugger is in place and he is demonstrating appropriate use. Knee-high JARRELL hose and sequential compression devices in place was bilateral lower extremities. No edema present. - Gastrointestinal Gastrointestinal Comment(s): Abdomen soft, nontender and nondistended. Active bowel sounds all 4 abdominal quadrants. Tolerating oral intake. - Genitourinary Genitourinary Comment(s): Wallis catheter for accurate I&O. Draining clear yellow urine. 500 mL output in the last 8 hours. - Integumentary Integumentary Comment(s): Skin is warm and dry. No clubbing or cyanosis present. Midline sternal incision clean and dry and approximated. No drainage or redness present. Dermabond dressing clean and dry. Left leg EVH site clean dry and approximated. No drainage or redness present. - Neurologic Neurologic: Present: CNII-XII intact - Musculoskeletal Musculoskeletal: Present: gait normal, strength equal bilaterally - Psychiatric Psychiatric: Present: A&O x's 3, appropriate affect, intact judgment & insight - Allied health notes Allied health notes reviewed: nursing - Labs CBC & Chem 7: 11/14/17 04:05 11/14/17 04:05 Labs: Abnormal Lab Results - Last 24 Hours (Table) 11/12/17 11/13/17 11/13/17 Range/Units 05:44 14:44 14:45 WBC 11.3 H (3.8-10.6) k/uL RBC 3.35 L (4.30-5.90) m/uL Hgb 10.6 L D (13.0-17.5) gm/dL Hct 30.4 L (39.0-53.0) % Plt Count 143 L (150-450) k/uL Neutrophils # 8.5 H (1.3-7.7) k/uL Lymphocytes # (1.0-4.8) k/uL Monocytes # 1.2 H (0-1.0) k/uL PT (9.0-12.0) sec INR (<1.2) APTT (22.0-30.0) sec ABG pH (7.35-7.45) ABG pCO2 (35-45) mmHg ABG pO2 (83-108) mmHg ABG HCO3 (21-25) mmol/L ABG Total CO2 (19-24) mmol/L ABG O2 Saturation (94-97) % Chloride (98-107) mmol/L Glucose (74-99) mg/dL POC Glucose (mg/dL) 106 H (75-99) mg/dL Calcium (8.4-10.2) mg/dL Magnesium (1.6-2.3) mg/dL ALT (21-72) U/L Alkaline Phosphatase (38-126) U/L Total Protein (6.3-8.2) g/dL Albumin (3.5-5.0) g/dL Crossmatch See Detail 11/13/17 11/13/17 11/13/17 Range/Units 14:45 14:45 14:58 WBC (3.8-10.6) k/uL RBC (4.30-5.90) m/uL Hgb (13.0-17.5) gm/dL Hct (39.0-53.0) % Plt Count (150-450) k/uL Neutrophils # (1.3-7.7) k/uL Lymphocytes # (1.0-4.8) k/uL Monocytes # (0-1.0) k/uL PT 13.1 H (9.0-12.0) sec INR 1.4 H (<1.2) APTT 38.0 H (22.0-30.0) sec ABG pH 7.34 L (7.35-7.45) ABG pCO2 50 H (35-45) mmHg ABG pO2 295 H (83-108) mmHg ABG HCO3 27 H (21-25) mmol/L ABG Total CO2 29 H (19-24) mmol/L ABG O2 Saturation 99.9 H (94-97) % Chloride 108 H (98-107) mmol/L Glucose (74-99) mg/dL POC Glucose (mg/dL) (75-99) mg/dL Calcium 7.5 L (8.4-10.2) mg/dL Magnesium 2.5 H (1.6-2.3) mg/dL ALT (21-72) U/L Alkaline Phosphatase 30 L (38-126) U/L Total Protein 4.0 L (6.3-8.2) g/dL Albumin 2.5 L (3.5-5.0) g/dL Crossmatch 11/13/17 11/13/17 11/13/17 Range/Units 16:33 17:10 17:12 WBC 14.8 H (3.8-10.6) k/uL RBC 4.08 L (4.30-5.90) m/uL Hgb 12.6 L (13.0-17.5) gm/dL Hct 38.3 L (39.0-53.0) % Plt Count (150-450) k/uL Neutrophils # 11.5 H (1.3-7.7) k/uL Lymphocytes # (1.0-4.8) k/uL Monocytes # 1.3 H (0-1.0) k/uL PT (9.0-12.0) sec INR (<1.2) APTT (22.0-30.0) sec ABG pH 7.31 L (7.35-7.45) ABG pCO2 50 H (35-45) mmHg ABG pO2 70 L (83-108) mmHg ABG HCO3 26 H (21-25) mmol/L ABG Total CO2 27 H (19-24) mmol/L ABG O2 Saturation 93.2 L (94-97) % Chloride (98-107) mmol/L Glucose (74-99) mg/dL POC Glucose (mg/dL) 128 H (75-99) mg/dL Calcium (8.4-10.2) mg/dL Magnesium (1.6-2.3) mg/dL ALT (21-72) U/L Alkaline Phosphatase (38-126) U/L Total Protein (6.3-8.2) g/dL Albumin (3.5-5.0) g/dL Crossmatch 11/13/17 11/13/17 11/13/17 Range/Units 18:00 19:14 19:57 WBC (3.8-10.6) k/uL RBC (4.30-5.90) m/uL Hgb (13.0-17.5) gm/dL Hct (39.0-53.0) % Plt Count (150-450) k/uL Neutrophils # (1.3-7.7) k/uL Lymphocytes # (1.0-4.8) k/uL Monocytes # (0-1.0) k/uL PT (9.0-12.0) sec INR (<1.2) APTT (22.0-30.0) sec ABG pH (7.35-7.45) ABG pCO2 (35-45) mmHg ABG pO2 (83-108) mmHg ABG HCO3 (21-25) mmol/L ABG Total CO2 (19-24) mmol/L ABG O2 Saturation (94-97) % Chloride (98-107) mmol/L Glucose (74-99) mg/dL POC Glucose (mg/dL) 131 H 127 H 120 H (75-99) mg/dL Calcium (8.4-10.2) mg/dL Magnesium (1.6-2.3) mg/dL ALT (21-72) U/L Alkaline Phosphatase (38-126) U/L Total Protein (6.3-8.2) g/dL Albumin (3.5-5.0) g/dL Crossmatch 11/13/17 11/13/17 11/13/17 Range/Units 20:00 20:48 21:56 WBC 13.0 H (3.8-10.6) k/uL RBC 3.69 L (4.30-5.90) m/uL Hgb 11.3 L (13.0-17.5) gm/dL Hct 33.7 L (39.0-53.0) % Plt Count (150-450) k/uL Neutrophils # 11.0 H (1.3-7.7) k/uL Lymphocytes # 0.7 L (1.0-4.8) k/uL Monocytes # 1.1 H (0-1.0) k/uL PT (9.0-12.0) sec INR (<1.2) APTT (22.0-30.0) sec ABG pH (7.35-7.45) ABG pCO2 (35-45) mmHg ABG pO2 (83-108) mmHg ABG HCO3 (21-25) mmol/L ABG Total CO2 (19-24) mmol/L ABG O2 Saturation (94-97) % Chloride (98-107) mmol/L Glucose (74-99) mg/dL POC Glucose (mg/dL) 125 H 109 H (75-99) mg/dL Calcium (8.4-10.2) mg/dL Magnesium (1.6-2.3) mg/dL ALT (21-72) U/L Alkaline Phosphatase (38-126) U/L Total Protein (6.3-8.2) g/dL Albumin (3.5-5.0) g/dL Crossmatch 11/13/17 11/14/1711/14/18 Range/Units 23:00 00:19 00:55 WBC (3.8-10.6) k/uL RBC (4.30-5.90) m/uL Hgb (13.0-17.5) gm/dL Hct (39.0-53.0) % Plt Count (150-450) k/uL Neutrophils # (1.3-7.7) k/uL Lymphocytes # (1.0-4.8) k/uL Monocytes # (0-1.0) k/uL PT (9.0-12.0) sec INR (<1.2) APTT (22.0-30.0) sec ABG pH (7.35-7.45) ABG pCO2 (35-45) mmHg ABG pO2 (83-108) mmHg ABG HCO3 (21-25) mmol/L ABG Total CO2 (19-24) mmol/L ABG O2 Saturation (94-97) % Chloride (98-107) mmol/L Glucose (74-99) mg/dL POC Glucose (mg/dL) 114 H 113 H 119 H (75-99) mg/dL Calcium (8.4-10.2) mg/dL Magnesium (1.6-2.3) mg/dL ALT (21-72) U/L Alkaline Phosphatase (38-126) U/L Total Protein (6.3-8.2) g/dL Albumin (3.5-5.0) g/dL Crossmatch 11/14/17 11/14/17 11/14/17 Range/Units 02:00 02:45 03:43 WBC (3.8-10.6) k/uL RBC (4.30-5.90) m/uL Hgb (13.0-17.5) gm/dL Hct (39.0-53.0) % Plt Count (150-450) k/uL Neutrophils # (1.3-7.7) k/uL Lymphocytes # (1.0-4.8) k/uL Monocytes # (0-1.0) k/uL PT (9.0-12.0) sec INR (<1.2) APTT (22.0-30.0) sec ABG pH (7.35-7.45) ABG pCO2 (35-45) mmHg ABG pO2 (83-108) mmHg ABG HCO3 (21-25) mmol/L ABG Total CO2 (19-24) mmol/L ABG O2 Saturation (94-97) % Chloride (98-107) mmol/L Glucose (74-99) mg/dL POC Glucose (mg/dL) 123 H 135 H 114 H (75-99) mg/dL Calcium (8.4-10.2) mg/dL Magnesium (1.6-2.3) mg/dL ALT (21-72) U/L Alkaline Phosphatase (38-126) U/L Total Protein (6.3-8.2) g/dL Albumin (3.5-5.0) g/dL Crossmatch 11/14/17 11/14/17 11/14/17 Range/Units 04:05 04:05 04:05 WBC (3.8-10.6) k/uL RBC 3.60 L (4.30-5.90) m/uL Hgb 11.0 L (13.0-17.5) gm/dL Hct 33.3 L (39.0-53.0) % Plt Count 146 L (150-450) k/uL Neutrophils # (1.3-7.7) k/uL Lymphocytes # (1.0-4.8) k/uL Monocytes # 1.1 H (0-1.0) k/uL PT (9.0-12.0) sec INR 1.2 H (<1.2) APTT (22.0-30.0) sec ABG pH (7.35-7.45) ABG pCO2 (35-45) mmHg ABG pO2 (83-108) mmHg ABG HCO3 (21-25) mmol/L ABG Total CO2 (19-24) mmol/L ABG O2 Saturation (94-97) % Chloride (98-107) mmol/L Glucose 110 H (74-99) mg/dL POC Glucose (mg/dL) (75-99) mg/dL Calcium 8.1 L (8.4-10.2) mg/dL Magnesium (1.6-2.3) mg/dL ALT 12 L (21-72) U/L Alkaline Phosphatase 35 L (38-126) U/L Total Protein 4.6 L (6.3-8.2) g/dL Albumin 2.9 L (3.5-5.0) g/dL Crossmatch 11/14/17 Range/Units 05:50 WBC (3.8-10.6) k/uL RBC (4.30-5.90) m/uL Hgb (13.0-17.5) gm/dL Hct (39.0-53.0) % Plt Count (150-450) k/uL Neutrophils # (1.3-7.7) k/uL Lymphocytes # (1.0-4.8) k/uL Monocytes # (0-1.0) k/uL PT (9.0-12.0) sec INR (<1.2) APTT (22.0-30.0) sec ABG pH (7.35-7.45) ABG pCO2 (35-45) mmHg ABG pO2 (83-108) mmHg ABG HCO3 (21-25) mmol/L ABG Total CO2 (19-24) mmol/L ABG O2 Saturation (94-97) % Chloride (98-107) mmol/L Glucose (74-99) mg/dL POC Glucose (mg/dL) 111 H (75-99) mg/dL Calcium (8.4-10.2) mg/dL Magnesium (1.6-2.3) mg/dL ALT (21-72) U/L Alkaline Phosphatase (38-126) U/L Total Protein (6.3-8.2) g/dL Albumin (3.5-5.0) g/dL Crossmatch - Imaging and Cardiology Chest x-ray: report reviewed, image reviewed Assessment and Plan (1) Coronary artery disease Current Visit: Yes Status: Acute Code(s): I25.10 - ATHSCL HEART DISEASE OF [place] CORONARY ARTERY W/O ANG PCTRS SNOMED Code(s): 13159717 (2) Episode of dizziness Current Visit: Yes Status: Acute Code(s): R42 - DIZZINESS AND GIDDINESS SNOMED Code(s): 443857370 (3) Hyperlipidemia Current Visit: Yes Status: Acute Code(s): E78.5 - HYPERLIPIDEMIA, UNSPECIFIED SNOMED Code(s): 70870394 (4) Osteoarthritis Current Visit: Yes Status: Acute Code(s): M19.90 - UNSPECIFIED OSTEOARTHRITIS, UNSPECIFIED SITE SNOMED Code(s): 890225388 (5) Nicotine dependence Current Visit: Yes Status: Acute Code(s): F17.200 - NICOTINE DEPENDENCE, UNSPECIFIED, UNCOMPLICATED SNOMED Code(s): 31795220 (6) Ischemic cardiomyopathy Current Visit: Yes Status: Acute Code(s): I25.5 - ISCHEMIC CARDIOMYOPATHY SNOMED Code(s): 635717357 (7) Family history of coronary artery disease Current Visit: Yes Status: Acute Code(s): Z82.49 - FAMILY HX OF ISCHEM HEART DIS AND OTH DIS OF THE CIRC SYS SNOMED Code(s): 085217735 (8) COPD (chronic obstructive pulmonary disease) Current Visit: Yes Status: Acute Code(s): J44.9 - CHRONIC OBSTRUCTIVE PULMONARY DISEASE, UNSPECIFIED SNOMED Code(s): 87062801 Plan: 1. Continue aspirin, statin, subcu heparin and beta héctor. We will increase his metoprolol tartrate 25 mg by mouth twice a day. 2. Pulmonary recommendations per Dr. Castellanos. 3. Encourage use of his incentive spirometry every hour while awake. 4. Monitor daily labs and chest x-rays. 5. GI and DVT prophylaxis. 6. We will discontinue his [place] catheter and keep his right IJ Cordis in place to continuous CVP monitoring. 7. Increase activity as tolerated, PT/OT and cardiac rehab consulted. 8. Discontinue nitroglycerin drip. 9. More recommendations to follow based on his clinical course. Time with Patient: Greater than 30
[2017-11-14 12:14] LABS: Glucose,Whole Blood 113 mg/dL (75-99)
[2017-11-14] MEDS: INSULIN ASPART 100 UNIT/ML 1 ML 10 ML VIAL SQ SCH ×3 (12:27→22:34)
--- NOTE | 2017-11-14 13:17 | P.PN ---
Subjective This patient is status post coronary artery bypass surgery. Patient had a ADDISON graft to the LAD and the saphenous vein graft to the diagonal branch and the posterior descending artery. Was extubated yesterday he is sitting comfortably in the bed. Since medical records over the last the 24 hours reviewed Objective - Vital Signs Vital signs: Vital Signs Temp 99.1 F 11/14/17 08:00 Pulse 78 11/14/17 11:39 Resp 19 11/14/17 11:00 BP 98/62 11/14/17 06:00 Pulse Ox 95 11/14/17 11:00 Intake & Output 11/13/17 11/14/17 11/14/17 18:59 06:59 18:59 Intake Total 506.813 8144.99 367 Output Total 3375 1630 140 Balance -3136.767 -98.01 227 Weight 87.9 kg 87.9 kg Intake: IV 33 1238 247 ACETAMINOPHEN IV (For NPO 200 ) 1,000 mg In Empty Bag 1 bag @ 400 mls/hr IVPB Q6HR [facility] Rx#:[id number] Albumin Human 5% 250 ml 250 In Empty Bag 1 bag @ 250 mls/hr IVPB Q1HR [facility] Rx#: [id number] CO/CI 80 20 Lactated Ringers 1,000 ml 600 200 @ 20 mls/hr IV .Q24H [facility] Rx#:[id number] Pressure Bag 108 27 Intake, IV Titration 205.233 53.99 Amount Clevidipine Butyrate 25 1.5 mg In Empty Bag 1 bag @ 1 MG/HR 2 mls/hr IV .Q24H [facility] Rx#:[id number] Clevidipine Butyrate 25 3.733 mg In Empty Bag 1 bag @ 8 MG/HR 16 mls/hr IV . Q3H8M [facility] Rx#:[id number] Insulin Regular 100 unit 3.99 In Sodium Chloride 0.9% 100 ml @ Per Protocol IV .Q0M [facility] Rx#:[id number] Lactated Ringers 1,000 ml 200 50 @ 20 mls/hr IV .Q24H [facility] Rx#:[id number] Oral 240 120 Output: Chest Tube Drainage 510 675 Left Pleural 80 195 Mediastinal 430 480 Drainage 35 Left Lower Calf 35 Urine 1665 920 140 Estimated Blood Loss 1200 Other: Voiding Method Indwelling Catheter Indwelling Catheter Indwelling Catheter # Voids 1 ABP, PAP, CO, CI - Last Documented Arterial Blood Pressure 108/51 Pulmonary Artery Pressure 21/10 Cardiac Output 10.1 Cardiac Index 6.1 - Exam Patient's vital signs are reviewed. The patient is alert awake and in no acute distress. HEENT negative. Neck-supple no increase in JVP noted no carotid bruits noted. Chest-symmetrical. Heart-first and second heart sounds are normal. No S3 or S4 is noted. No significant murmurs are noted. Lungs bilateral good at entry is noted. Bilateral scattered wheezes are noted. Abdomen-soft. Liver and spleen are not enlarged. The bowel sounds are normal. No tenderness noted Extremities-peripheral pulses since are 2+. No significant leg edema noted. Neuro-no significant gross abnormality noted. - Labs CBC & Chem 7: 11/14/17 04:05 11/14/17 04:05 Labs: Abnormal Lab Results - Last 24 Hours (Table) 11/12/17 11/13/17 11/13/17 Range/Units 05:44 14:44 14:45 WBC 11.3 H (3.8-10.6) k/uL RBC 3.35 L (4.30-5.90) m/uL Hgb 10.6 L D (13.0-17.5) gm/dL Hct 30.4 L (39.0-53.0) % Plt Count 143 L (150-450) k/uL Neutrophils # 8.5 H (1.3-7.7) k/uL Lymphocytes # (1.0-4.8) k/uL Monocytes # 1.2 H (0-1.0) k/uL PT (9.0-12.0) sec INR (<1.2) APTT (22.0-30.0) sec ABG pH (7.35-7.45) ABG pCO2 (35-45) mmHg ABG pO2 (83-108) mmHg ABG HCO3 (21-25) mmol/L ABG Total CO2 (19-24) mmol/L ABG O2 Saturation (94-97) % Chloride (98-107) mmol/L Glucose (74-99) mg/dL POC Glucose (mg/dL) 106 H (75-99) mg/dL Calcium (8.4-10.2) mg/dL Magnesium (1.6-2.3) mg/dL ALT (21-72) U/L Alkaline Phosphatase (38-126) U/L Total Protein (6.3-8.2) g/dL Albumin (3.5-5.0) g/dL Crossmatch See Detail 11/13/17 11/13/17 11/13/17 Range/Units 14:45 14:45 14:58 WBC (3.8-10.6) k/uL RBC (4.30-5.90) m/uL Hgb (13.0-17.5) gm/dL Hct (39.0-53.0) % Plt Count (150-450) k/uL Neutrophils # (1.3-7.7) k/uL Lymphocytes # (1.0-4.8) k/uL Monocytes # (0-1.0) k/uL PT 13.1 H (9.0-12.0) sec INR 1.4 H (<1.2) APTT 38.0 H (22.0-30.0) sec ABG pH 7.34 L (7.35-7.45) ABG pCO2 50 H (35-45) mmHg ABG pO2 295 H (83-108) mmHg ABG HCO3 27 H (21-25) mmol/L ABG Total CO2 29 H (19-24) mmol/L ABG O2 Saturation 99.9 H (94-97) % Chloride 108 H (98-107) mmol/L Glucose (74-99) mg/dL POC Glucose (mg/dL) (75-99) mg/dL Calcium 7.5 L (8.4-10.2) mg/dL Magnesium 2.5 H (1.6-2.3) mg/dL ALT (21-72) U/L Alkaline Phosphatase 30 L (38-126) U/L Total Protein 4.0 L (6.3-8.2) g/dL Albumin 2.5 L (3.5-5.0) g/dL Crossmatch 11/13/17 11/13/17 11/13/17 Range/Units 16:33 17:10 17:12 WBC 14.8 H (3.8-10.6) k/uL RBC 4.08 L (4.30-5.90) m/uL Hgb 12.6 L (13.0-17.5) gm/dL Hct 38.3 L (39.0-53.0) % Plt Count (150-450) k/uL Neutrophils # 11.5 H (1.3-7.7) k/uL Lymphocytes # (1.0-4.8) k/uL Monocytes # 1.3 H (0-1.0) k/uL PT (9.0-12.0) sec INR (<1.2) APTT (22.0-30.0) sec ABG pH 7.31 L (7.35-7.45) ABG pCO2 50 H (35-45) mmHg ABG pO2 70 L (83-108) mmHg ABG HCO3 26 H (21-25) mmol/L ABG Total CO2 27 H (19-24) mmol/L ABG O2 Saturation 93.2 L (94-97) % Chloride (98-107) mmol/L Glucose (74-99) mg/dL POC Glucose (mg/dL) 128 H (75-99) mg/dL Calcium (8.4-10.2) mg/dL Magnesium (1.6-2.3) mg/dL ALT (21-72) U/L Alkaline Phosphatase (38-126) U/L Total Protein (6.3-8.2) g/dL Albumin (3.5-5.0) g/dL Crossmatch 11/13/17 11/13/17 11/13/17 Range/Units 18:00 19:14 19:57 WBC (3.8-10.6) k/uL RBC (4.30-5.90) m/uL Hgb (13.0-17.5) gm/dL Hct (39.0-53.0) % Plt Count (150-450) k/uL Neutrophils # (1.3-7.7) k/uL Lymphocytes # (1.0-4.8) k/uL Monocytes # (0-1.0) k/uL PT (9.0-12.0) sec INR (<1.2) APTT (22.0-30.0) sec ABG pH (7.35-7.45) ABG pCO2 (35-45) mmHg ABG pO2 (83-108) mmHg ABG HCO3 (21-25) mmol/L ABG Total CO2 (19-24) mmol/L ABG O2 Saturation (94-97) % Chloride (98-107) mmol/L Glucose (74-99) mg/dL POC Glucose (mg/dL) 131 H 127 H 120 H (75-99) mg/dL Calcium (8.4-10.2) mg/dL Magnesium (1.6-2.3) mg/dL ALT (21-72) U/L Alkaline Phosphatase (38-126) U/L Total Protein (6.3-8.2) g/dL Albumin (3.5-5.0) g/dL Crossmatch 11/13/17 11/13/17 11/13/17 Range/Units 20:00 20:48 21:56 WBC 13.0 H (3.8-10.6) k/uL RBC 3.69 L (4.30-5.90) m/uL Hgb 11.3 L (13.0-17.5) gm/dL Hct 33.7 L (39.0-53.0) % Plt Count (150-450) k/uL Neutrophils # 11.0 H (1.3-7.7) k/uL Lymphocytes # 0.7 L (1.0-4.8) k/uL Monocytes # 1.1 H (0-1.0) k/uL PT (9.0-12.0) sec INR (<1.2) APTT (22.0-30.0) sec ABG pH (7.35-7.45) ABG pCO2 (35-45) mmHg ABG pO2 (83-108) mmHg ABG HCO3 (21-25) mmol/L ABG Total CO2 (19-24) mmol/L ABG O2 Saturation (94-97) % Chloride (98-107) mmol/L Glucose (74-99) mg/dL POC Glucose (mg/dL) 125 H 109 H (75-99) mg/dL Calcium (8.4-10.2) mg/dL Magnesium (1.6-2.3) mg/dL ALT (21-72) U/L Alkaline Phosphatase (38-126) U/L Total Protein (6.3-8.2) g/dL Albumin (3.5-5.0) g/dL Crossmatch 11/13/17 11/14/17 11/14/17 Range/Units 23:00 00:19 00:55 WBC (3.8-10.6) k/uL RBC (4.30-5.90) m/uL Hgb (13.0-17.5) gm/dL Hct (39.0-53.0) % Plt Count (150-450) k/uL Neutrophils # (1.3-7.7) k/uL Lymphocytes # (1.0-4.8) k/uL Monocytes # (0-1.0) k/uL PT (9.0-12.0) sec INR (<1.2) APTT (22.0-30.0) sec ABG pH (7.35-7.45) ABG pCO2 (35-45) mmHg ABG pO2 (83-108) mmHg ABG HCO3 (21-25) mmol/L ABG Total CO2 (19-24) mmol/L ABG O2 Saturation (94-97) % Chloride (98-107) mmol/L Glucose (74-99) mg/dL POC Glucose (mg/dL) 114 H 113 H 119 H (75-99) mg/dL Calcium (8.4-10.2) mg/dL Magnesium (1.6-2.3) mg/dL ALT (21-72) U/L Alkaline Phosphatase (38-126) U/L Total Protein (6.3-8.2) g/dL Albumin (3.5-5.0) g/dL Crossmatch 11/14/17 11/14/17 11/14/17 Range/Units 02:00 02:45 03:43 WBC (3.8-10.6) k/uL RBC (4.30-5.90) m/uL Hgb (13.0-17.5) gm/dL Hct (39.0-53.0) % Plt Count (150-450) k/uL Neutrophils # (1.3-7.7) k/uL Lymphocytes # (1.0-4.8) k/uL Monocytes # (0-1.0) k/uL PT (9.0-12.0) sec INR (<1.2) APTT (22.0-30.0) sec ABG pH (7.35-7.45) ABG pCO2 (35-45) mmHg ABG pO2 (83-108) mmHg ABG HCO3 (21-25) mmol/L ABG Total CO2 (19-24) mmol/L ABG O2 Saturation (94-97) % Chloride (98-107) mmol/L Glucose (74-99) mg/dL POC Glucose (mg/dL) 123 H 135 H 114 H (75-99) mg/dL Calcium (8.4-10.2) mg/dL Magnesium (1.6-2.3) mg/dL ALT (21-72) U/L Alkaline Phosphatase (38-126) U/L Total Protein (6.3-8.2) g/dL Albumin (3.5-5.0) g/dL Crossmatch 11/14/17 11/14/17 11/14/17 Range/Units 04:05 04:05 04:05 WBC (3.8-10.6) k/uL RBC 3.60 L (4.30-5.90) m/uL Hgb 11.0 L (13.0-17.5) gm/dL Hct 33.3 L (39.0-53.0) % Plt Count 146 L (150-450) k/uL Neutrophils # (1.3-7.7) k/uL Lymphocytes # (1.0-4.8) k/uL Monocytes # 1.1 H (0-1.0) k/uL PT (9.0-12.0) sec INR 1.2 H (<1.2) APTT (22.0-30.0) sec ABG pH (7.35-7.45) ABG pCO2 (35-45) mmHg ABG pO2 (83-108) mmHg ABG HCO3 (21-25) mmol/L ABG Total CO2 (19-24) mmol/L ABG O2 Saturation (94-97) % Chloride (98-107) mmol/L Glucose 110 H (74-99) mg/dL POC Glucose (mg/dL) (75-99) mg/dL Calcium 8.1 L (8.4-10.2) mg/dL Magnesium (1.6-2.3) mg/dL ALT 12 L (21-72) U/L Alkaline Phosphatase 35 L (38-126) U/L Total Protein 4.6 L (6.3-8.2) g/dL Albumin 2.9 L (3.5-5.0) g/dL Crossmatch 11/14/17 11/14/17 Range/Units 05:50 12:12 WBC (3.8-10.6) k/uL RBC (4.30-5.90) m/uL Hgb (13.0-17.5) gm/dL Hct (39.0-53.0) % Plt Count (150-450) k/uL Neutrophils # (1.3-7.7) k/uL Lymphocytes # (1.0-4.8) k/uL Monocytes # (0-1.0) k/uL PT (9.0-12.0) sec INR (<1.2) APTT (22.0-30.0) sec ABG pH (7.35-7.45) ABG pCO2 (35-45) mmHg ABG pO2 (83-108) mmHg ABG HCO3 (21-25) mmol/L ABG Total CO2 (19-24) mmol/L ABG O2 Saturation (94-97) % Chloride (98-107) mmol/L Glucose (74-99) mg/dL POC Glucose (mg/dL) 111 H 113 H (75-99) mg/dL Calcium (8.4-10.2) mg/dL Magnesium (1.6-2.3) mg/dL ALT (21-72) U/L Alkaline Phosphatase (38-126) U/L Total Protein (6.3-8.2) g/dL Albumin (3.5-5.0) g/dL Crossmatch Assessment and Plan Assessment: This patient is status post coronary artery bypass surgery. This and remains hemodynamically stable. No respiratory distress is noted no dysrhythmias are noted continue the current medications.
[2017-11-14] MEDS: ALBUMIN HUMAN 5% 250 ML in EMPTY BAG 1 BAG IVPB PRN ×2 (13:22→13:50)
[2017-11-14] MEDS ORDERED: BISACODYL 10 MG SUPP RECTAL PRN (14:18)
[2017-11-14] MEDS ORDERED: MAGNESIUM HYDROXIDE 2,400 MG/10 ML CUP PO PRN (14:18)
--- NOTE | 2017-11-14 14:30 | P.PN ---
Subjective Progress Note Date: 11/14/17 On 11/13 2017 I'm seeing this patient immediately after he arrived from the operating room. The patient is currently sedated, intubated on a mechanical ventilator. He is on 10 mics of propofol infusion. He is on assist control mode at the rate of 10 initially which I bumped it up to 20 , and addition to her tidal volume 600, FiO2 of 60% and a PEEP of 5. The chest x-ray showed adequate expansion of both lungs. No pneumothorax. ET tube is in a good location. The patient has a mediastinal and left pleural chest tube and the right IJ Cleveland-Paulo catheter in place. The patient had a blood gas that showed a pH of 7.34 with a pCO2 of 50 and pO2 of 295 and this was on FiO2 of 100%. Postoperative hemoglobin is at 10.6. Hemodynamically, he has an adequate cardiac index, PA pressures 30/17, CVP is at 12. The output from the left pleural chest tube is 85 mL and a mediastinal chest tube is 45 mL since the patient arrived from the operating room. His current temperature is 97.7 and his only a few mics of norepinephrine infusion for blood pressure control. He is also on nitroglycerin drip per protocol. Cardiac rhythm is sinus. The patient has a backup pacemaker generator the rate of 50, VVI. On 11/14/2017, the patient is extubated and the patient is ambulating in the hallway. He has done extremely well and within a few hours after arriving to the intensive care unit the patient was extubated to nasal cannula. He remained hemodynamically stable and did not require any pressors or any other interventions. Cardiac rhythm is sinus. Chest tubes are in place. Output is around 280 MO's in 8 hours and a 50 MO since surgery and the mediastinal chest tube and 145 mL in 8 hours and to 50 mL since surgery in the left pleural chest tube. No evidence of any air leak. The patient is pulling approximately thousand on the incentive spirometer. Chest x-ray showed full expansion of both lungs without any pneumothorax. There is some increase atelectatic changes in lung bases and mild component of pulmonary vessel congestion. Currently on 2 L of oxygen nasal cannula with a pulse ox of 96%. The cardiac output as of 5.4. Index is at 2.6. PA pressures around 24/12. Surgical wound sites are clean. Pain scale is around 3 out of 10 in severity. Objective - Vital Signs Vital signs: Vital Signs Temp 99.1 F 11/14/17 08:00 Pulse 78 11/14/17 11:39 Resp 19 11/14/17 11:00 BP 98/62 11/14/17 06:00 Pulse Ox 95 11/14/17 11:00 Intake & Output 11/13/17 11/14/17 11/14/17 18:59 06:59 18:59 Intake Total 453.812 8475.99 367 Output Total 3375 1630 140 Balance -3136.767 -98.01 227 Weight 87.9 kg 87.9 kg Intake: IV 33 1238 247 ACETAMINOPHEN IV (For NPO 200 ) 1,000 mg In Empty Bag 1 bag @ 400 mls/hr IVPB Q6HR [facility] Rx#:[id number] Albumin Human 5% 250 ml 250 In Empty Bag 1 bag @ 250 mls/hr IVPB Q1HR PRN Rx#: [id number] CO/CI 80 20 Lactated Ringers 1,000 ml 600 200 @ 20 mls/hr IV .Q24H [facility] Rx#:[id number] Pressure Bag 108 27 Intake, IV Titration 205.233 53.99 Amount Clevidipine Butyrate 25 1.5 mg In Empty Bag 1 bag @ 1 MG/HR 2 mls/hr IV .Q24H [facility] Rx#:[id number] Clevidipine Butyrate 25 3.733 mg In Empty Bag 1 bag @ 8 MG/HR 16 mls/hr IV . Q3H8M [facility] Rx#:[id number] Insulin Regular 100 unit 3.99 In Sodium Chloride 0.9% 100 ml @ Per Protocol IV .Q0M [facility] Rx#:[id number] Lactated Ringers 1,000 ml 200 50 @ 20 mls/hr IV .Q24H [facility] Rx#:[id number] Oral 240 120 Output: Chest Tube Drainage 510 675 Left Pleural 80 195 Mediastinal 430 480 Drainage 35 Left Lower Calf 35 Urine 1665 920 140 Estimated Blood Loss 1200 Other: Voiding Method Indwelling Catheter Indwelling Catheter Indwelling Catheter # Voids 1 ABP, PAP, CO, CI - Last Documented Arterial Blood Pressure 108/51 Pulmonary Artery Pressure 21/10 Cardiac Output 10.1 Cardiac Index 6.1 - Exam Gen. appearance the patient is calm, likely distress. Ambulating. Head exam was generally normal. There was no scleral icterus or corneal arcus. Mucous membranes were moist. Neck was supple and without jugular venous distension, thyromegaly, or carotid bruits. Carotids were easily palpable bilaterally. There was no adenopathy. The patient has a right IJ Cleveland-Paulo catheter in place along with a Cordis. Lungs were clear to auscultation and percussion, and with normal diaphragmatic excursion. No wheezes or rales were noted. Breath sounds are diminished in lung bases and the sternum stable clean and intact. Chest tubes are all in place. Cardiac exam revealed the PMI to be normally situated and sized. The rhythm was regular and no extrasystoles were noted during several minutes of auscultation. The first and second heart sounds were normal and physiologic splitting of the second heart sound was noted. There were no murmurs, rubs, clicks, or gallops. Abdominal exam revealed normal bowel sounds. The abdomen was soft, non-tender, and without masses, organomegaly, or appreciable enlargement of the abdominal aorta. Examination of the extremities revealed easily palpable radial, femoral and pedal pulses. There was no cyanosis, clubbing or edema. Examination of the skin revealed no evidence of significant rashes, suspicious appearing nevi or other concerning lesions. Neurologically the patient awake and alert and there is no focal neurological deficits. - Labs CBC & Chem 7: 11/14/17 04:05 11/14/17 04:05 Labs: Abnormal Lab Results - Last 24 Hours (Table) 11/12/17 11/13/17 11/13/17 Range/Units 05:44 14:44 14:45 WBC 11.3 H (3.8-10.6) k/uL RBC 3.35 L (4.30-5.90) m/uL Hgb 10.6 L D (13.0-17.5) gm/dL Hct 30.4 L (39.0-53.0) % Plt Count 143 L (150-450) k/uL Neutrophils # 8.5 H (1.3-7.7) k/uL Lymphocytes # (1.0-4.8) k/uL Monocytes # 1.2 H (0-1.0) k/uL PT (9.0-12.0) sec INR (<1.2) APTT (22.0-30.0) sec ABG pH (7.35-7.45) ABG pCO2 (35-45) mmHg ABG pO2 (83-108) mmHg ABG HCO3 (21-25) mmol/L ABG Total CO2 (19-24) mmol/L ABG O2 Saturation (94-97) % Chloride (98-107) mmol/L Glucose (74-99) mg/dL POC Glucose (mg/dL) 106 H (75-99) mg/dL Calcium (8.4-10.2) mg/dL Magnesium (1.6-2.3) mg/dL ALT (21-72) U/L Alkaline Phosphatase (38-126) U/L Total Protein (6.3-8.2) g/dL Albumin (3.5-5.0) g/dL Crossmatch See Detail 11/13/17 11/13/17 11/13/17 Range/Units 14:45 14:45 14:58 WBC (3.8-10.6) k/uL RBC (4.30-5.90) m/uL Hgb (13.0-17.5) gm/dL Hct (39.0-53.0) % Plt Count (150-450) k/uL Neutrophils # (1.3-7.7) k/uL Lymphocytes # (1.0-4.8) k/uL Monocytes # (0-1.0) k/uL PT 13.1 H (9.0-12.0) sec INR 1.4 H (<1.2) APTT 38.0 H (22.0-30.0) sec ABG pH 7.34 L (7.35-7.45) ABG pCO2 50 H (35-45) mmHg ABG pO2 295 H (83-108) mmHg ABG HCO3 27 H (21-25) mmol/L ABG Total CO2 29 H (19-24) mmol/L ABG O2 Saturation 99.9 H (94-97) % Chloride 108 H (98-107) mmol/L Glucose (74-99) mg/dL POC Glucose (mg/dL) (75-99) mg/dL Calcium 7.5 L (8.4-10.2) mg/dL Magnesium 2.5 H (1.6-2.3) mg/dL ALT (21-72) U/L Alkaline Phosphatase 30 L (38-126) U/L Total Protein 4.0 L (6.3-8.2) g/dL Albumin 2.5 L (3.5-5.0) g/dL Crossmatch 11/13/17 11/13/17 11/13/17 Range/Units 16:33 17:10 17:12 WBC 14.8 H (3.8-10.6) k/uL RBC 4.08 L (4.30-5.90) m/uL Hgb 12.6 L (13.0-17.5) gm/dL Hct 38.3 L (39.0-53.0) % Plt Count (150-450) k/uL Neutrophils # 11.5 H (1.3-7.7) k/uL Lymphocytes # (1.0-4.8) k/uL Monocytes # 1.3 H (0-1.0) k/uL PT (9.0-12.0) sec INR (<1.2) APTT (22.0-30.0) sec ABG pH 7.31 L (7.35-7.45) ABG pCO2 50 H (35-45) mmHg ABG pO2 70 L (83-108) mmHg ABG HCO3 26 H (21-25) mmol/L ABG Total CO2 27 H (19-24) mmol/L ABG O2 Saturation 93.2 L (94-97) % Chloride (98-107) mmol/L Glucose (74-99) mg/dL POC Glucose (mg/dL) 128 H (75-99) mg/dL Calcium (8.4-10.2) mg/dL Magnesium (1.6-2.3) mg/dL ALT (21-72) U/L Alkaline Phosphatase (38-126) U/L Total Protein (6.3-8.2) g/dL Albumin (3.5-5.0) g/dL Crossmatch 11/13/17 11/13/17 11/13/17 Range/Units 18:00 19:14 19:57 WBC (3.8-10.6) k/uL RBC (4.30-5.90) m/uL Hgb (13.0-17.5) gm/dL Hct (39.0-53.0) % Plt Count (150-450) k/uL Neutrophils # (1.3-7.7) k/uL Lymphocytes # (1.0-4.8) k/uL Monocytes # (0-1.0) k/uL PT (9.0-12.0) sec INR (<1.2) APTT (22.0-30.0) sec ABG pH (7.35-7.45) ABG pCO2 (35-45) mmHg ABG pO2 (83-108) mmHg ABG HCO3 (21-25) mmol/L ABG Total CO2 (19-24) mmol/L ABG O2 Saturation (94-97) % Chloride (98-107) mmol/L Glucose (74-99) mg/dL POC Glucose (mg/dL) 131 H 127 H 120 H (75-99) mg/dL Calcium (8.4-10.2) mg/dL Magnesium (1.6-2.3) mg/dL ALT (21-72) U/L Alkaline Phosphatase (38-126) U/L Total Protein (6.3-8.2) g/dL Albumin (3.5-5.0) g/dL Crossmatch 11/13/17 11/13/17 11/13/17 Range/Units 20:00 20:48 21:56 WBC 13.0 H (3.8-10.6) k/uL RBC 3.69 L (4.30-5.90) m/uL Hgb 11.3 L (13.0-17.5) gm/dL Hct 33.7 L (39.0-53.0) % Plt Count (150-450) k/uL Neutrophils # 11.0 H (1.3-7.7) k/uL Lymphocytes # 0.7 L (1.0-4.8) k/uL Monocytes # 1.1 H (0-1.0) k/uL PT (9.0-12.0) sec INR (<1.2) APTT (22.0-30.0) sec ABG pH (7.35-7.45) ABG pCO2 (35-45) mmHg ABG pO2 (83-108) mmHg ABG HCO3 (21-25) mmol/L ABG Total CO2 (19-24) mmol/L ABG O2 Saturation (94-97) % Chloride (98-107) mmol/L Glucose (74-99) mg/dL POC Glucose (mg/dL) 125 H 109 H (75-99) mg/dL Calcium (8.4-10.2) mg/dL Magnesium (1.6-2.3) mg/dL ALT (21-72) U/L Alkaline Phosphatase (38-126) U/L Total Protein (6.3-8.2) g/dL Albumin (3.5-5.0) g/dL Crossmatch 11/13/17 11/14/17 11/14/17 Range/Units 23:00 00:19 00:55 WBC (3.8-10.6) k/uL RBC (4.30-5.90) m/uL Hgb (13.0-17.5) gm/dL Hct (39.0-53.0) % Plt Count (150-450) k/uL Neutrophils # (1.3-7.7) k/uL Lymphocytes # (1.0-4.8) k/uL Monocytes # (0-1.0) k/uL PT (9.0-12.0) sec INR (<1.2) APTT (22.0-30.0) sec ABG pH (7.35-7.45) ABG pCO2 (35-45) mmHg ABG pO2 (83-108) mmHg ABG HCO3 (21-25) mmol/L ABG Total CO2 (19-24) mmol/L ABG O2 Saturation (94-97) % Chloride (98-107) mmol/L Glucose (74-99) mg/dL POC Glucose (mg/dL) 114 H 113 H 119 H (75-99) mg/dL Calcium (8.4-10.2) mg/dL Magnesium (1.6-2.3) mg/dL ALT (21-72) U/L Alkaline Phosphatase (38-126) U/L Total Protein (6.3-8.2) g/dL Albumin (3.5-5.0) g/dL Crossmatch 11/14/17 11/14/17 11/14/17 Range/Units 02:00 02:45 03:43 WBC (3.8-10.6) k/uL RBC (4.30-5.90) m/uL Hgb (13.0-17.5) gm/dL Hct (39.0-53.0) % Plt Count (150-450) k/uL Neutrophils # (1.3-7.7) k/uL Lymphocytes # (1.0-4.8) k/uL Monocytes # (0-1.0) k/uL PT (9.0-12.0) sec INR (<1.2) APTT (22.0-30.0) sec ABG pH (7.35-7.45) ABG pCO2 (35-45) mmHg ABG pO2 (83-108) mmHg ABG HCO3 (21-25) mmol/L ABG Total CO2 (19-24) mmol/L ABG O2 Saturation (94-97) % Chloride (98-107) mmol/L Glucose (74-99) mg/dL POC Glucose (mg/dL) 123 H 135 H 114 H (75-99) mg/dL Calcium (8.4-10.2) mg/dL Magnesium (1.6-2.3) mg/dL ALT (21-72) U/L Alkaline Phosphatase (38-126) U/L Total Protein (6.3-8.2) g/dL Albumin (3.5-5.0) g/dL Crossmatch 11/14/17 11/14/17 11/14/17 Range/Units 04:05 04:05 04:05 WBC (3.8-10.6) k/uL RBC 3.60 L (4.30-5.90) m/uL Hgb 11.0 L (13.0-17.5) gm/dL Hct 33.3 L (39.0-53.0) % Plt Count 146 L (150-450) k/uL Neutrophils # (1.3-7.7) k/uL Lymphocytes # (1.0-4.8) k/uL Monocytes # 1.1 H (0-1.0) k/uL PT (9.0-12.0) sec INR 1.2 H (<1.2) APTT (22.0-30.0) sec ABG pH (7.35-7.45) ABG pCO2 (35-45) mmHg ABG pO2 (83-108) mmHg ABG HCO3 (21-25) mmol/L ABG Total CO2 (19-24) mmol/L ABG O2 Saturation (94-97) % Chloride (98-107) mmol/L Glucose 110 H (74-99) mg/dL POC Glucose (mg/dL) (75-99) mg/dL Calcium 8.1 L (8.4-10.2) mg/dL Magnesium (1.6-2.3) mg/dL ALT 12 L (21-72) U/L Alkaline Phosphatase 35 L (38-126) U/L Total Protein 4.6 L (6.3-8.2) g/dL Albumin 2.9 L (3.5-5.0) g/dL Crossmatch 11/14/17 11/14/17 Range/Units 05:50 12:12 WBC (3.8-10.6) k/uL RBC (4.30-5.90) m/uL Hgb (13.0-17.5) gm/dL Hct (39.0-53.0) % Plt Count (150-450) k/uL Neutrophils # (1.3-7.7) k/uL Lymphocytes # (1.0-4.8) k/uL Monocytes # (0-1.0) k/uL PT (9.0-12.0) sec INR (<1.2) APTT (22.0-30.0) sec ABG pH (7.35-7.45) ABG pCO2 (35-45) mmHg ABG pO2 (83-108) mmHg ABG HCO3 (21-25) mmol/L ABG Total CO2 (19-24) mmol/L ABG O2 Saturation (94-97) % Chloride (98-107) mmol/L Glucose (74-99) mg/dL POC Glucose (mg/dL) 111 H 113 H (75-99) mg/dL Calcium (8.4-10.2) mg/dL Magnesium (1.6-2.3) mg/dL ALT (21-72) U/L Alkaline Phosphatase (38-126) U/L Total Protein (6.3-8.2) g/dL Albumin (3.5-5.0) g/dL Crossmatch Assessment and Plan Plan: Assessment 1 multivessel coronary artery disease status post triple-vessel bypass surgery. Patient is postop day #1. The patient was extubated successfully without any major difficulties. Hemodynamically stable on no pressors. Chest tubes are still in place. The patient is ambulating. Chest x-ray shows adequate expansion of both lungs and there is no evidence of any pneumothorax. Ultrasound the chest tube was noted. 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 Keep the chest tubes in place and monitor the output. Discontinue the Cleveland-Paulo catheter. Increase metoprolol to 25 mg twice a day. Continue aspirin, metoprolol and statins. Ambulate this patient the hallway. Pain is under control. We'll continue to follow.
[2017-11-14] MEDS ORDERED: IPRATROPIUM-ALBUTEROL 3 ML NEB INHALATION SCH (16:00)
[2017-11-14 16:49] LABS: Glucose,Whole Blood 132 mg/dL (75-99)
[2017-11-14] MEDS: LACTATED RINGERS 1,000 ML IV SCH (17:21)
[2017-11-14] MEDS: SENNOSIDES-DOCUSATE SODIUM 1 EACH TAB PO SCH (20:19)
[2017-11-14] MEDS: HYDROcodone/APAP 5-325MG 1 EACH TAB PO PRN (20:19)
[2017-11-14 20:22] LABS: Glucose,Whole Blood 118 mg/dL (75-99)
--- NOTE | 2017-11-14 22:29 | PN ---
PROGRESS NOTE DATE OF SERVICE: 11/14/2017. INTERVAL HISTORY: This is a 57-year-old gentleman who underwent CAD, CABG is being closely monitored. No chest pain. No palpitations. No fever. EXAM: Alert and oriented. Pulse is 92, blood pressure 106/45, respirations 20, temperature normal, pulse ox 93% on room air. HEENT: Conjunctivae normal. NECK: No jugular venous distention. CARDIOVASCULAR: S1, S2 muffled. RESPIRATORY: Breath sounds diminished in the bases. A few scattered rhonchi and crackles. ABDOMEN: Soft, nontender. LEGS: No edema. NERVOUS SYSTEM: Nonfocal. LABS: CBC noted. Hemoglobin 11. Accu-Cheks noted. Albumin is 2.9. ASSESSMENT: 1. Coronary artery disease, status post coronary artery bypass graft. 2. Ischemic cardiomyopathy, ejection fraction 30%-35%. 3. Family history of coronary artery disease. 4. History of nicotine dependence. 5. Hyperlipidemia. 6. Possible underlying chronic obstructive pulmonary disease. RECOMMENDATIONS AND DISCUSSION: Recommend to continue current medical management and symptomatic treatment, incentive spirometry, bronchodilators. Continue the rest of medications, including beta blockers, antiplatelet agents. Closely follow with Cardiothoracic Surgery. Further recommendations to follow. MMODL / IJN: [id number] /
[2017-11-15] MEDS: HYDROcodone/APAP 5-325MG 1 EACH TAB PO PRN ×5 (00:33→21:33)
[2017-11-15 05:03] LABS: Basophils % (A) 0 %; Eosinophils # (A) 0.1 k/uL (0-0.7); Eosinophils % (A) 1 %; HCT 30.3 % (39.0-53.0); HGB 10.3 gm/dL (13.0-17.5); Lymphocytes # (A) 1.1 k/uL (1.0-4.8); Lymphocytes % (A) 13 %; MCH 31.1 pg (25.0-35.0); MCHC 33.9 g/dL (31.0-37.0); MCV 91.9 fL (80.0-100.0); Mean Platelet Volume 7.9; Monocytes # (A) 1.1 k/uL (0-1.0); Monocytes % (A) 13 %; Neutrophils # (A) 5.9 k/uL (1.3-7.7); Neutrophils % (A) 71 %; Platelet Count 125 k/uL (150-450); RDW 12.9 % (11.5-15.5); WBC 8.3 k/uL (3.8-10.6)
[2017-11-15 05:20] LABS: Ionized Calcium 4.9 mg/dL (4.5-5.3)
[2017-11-15 05:27] LABS: ALT 27 U/L (21-72); AST 19 U/L (17-59); Alkaline Phosphatase 36 U/L (38-126); Anion Gap 9 mmol/L; Blood Urea Nitrogen 21 mg/dL (9-20); Calcium 8.5 mg/dL (8.4-10.2); Carbon Dioxide 26 mmol/L (22-30); Chloride 103 mmol/L (98-107); Glucose 97 mg/dL (74-99); Magnesium 2.1 mg/dL (1.6-2.3); Potassium 3.9 mmol/L (3.5-5.1); Sodium 138 mmol/L (137-145); Total Bilirubin 0.8 mg/dL (0.2-1.3); Total Protein 4.7 g/dL (6.3-8.2)
[2017-11-15] MEDS: KETOROLAC 30 MG/ML 1 ML VIAL IVP SCH ×2 (05:38→13:07)
[2017-11-15] MEDS ORDERED: POTASSIUM CHLORIDE ER 20 MEQ TAB.ER PO SCH (06:00)
[2017-11-15 07:05] LABS: Glucose,Whole Blood 105 mg/dL (75-99)
--- NOTE | 2017-11-15 07:14 | XR ---
EXAMINATION TYPE: XR chest 1V portable DATE OF EXAM: 11/15/2017 COMPARISON: 11/14/2017 HISTORY: SOB, Follow Up FINDINGS: Piqua-Paulo catheter has been removed with the right IJ sheath in place. Left-sided chest tube and medi astinal drain remain in place. No change in bibasilar opacities. Stable appearance of the cardio-mediastinal structures at this time. Pleural effusion unchanged. IMPRESSION: 1. Stable portable chest. Clinical correlation and follow up until resolution is recommended. Indwe lling tubes and catheters as noted.
[2017-11-15] MEDS: INSULIN ASPART 100 UNIT/ML 1 ML 10 ML VIAL SQ SCH ×4 (07:20→21:32)
[2017-11-15] MEDS: IPRATROPIUM-ALBUTEROL 3 ML NEB INHALATION SCH ×4 (07:57→19:11)
[2017-11-15] MEDS: METOPROLOL TARTRATE 50 MG TAB PO SCH ×2 (08:20→21:32)
[2017-11-15] MEDS: HEPARIN SODIUM,PORCINE 5,000 UNIT/ML 1 ML VIAL SQ SCH ×3 (08:20→23:48)
[2017-11-15] MEDS: ATORVASTATIN 40 MG TAB PO SCH (08:20)
[2017-11-15] MEDS: PANTOPRAZOLE 40 MG TABLET PO SCH (08:20)
[2017-11-15] MEDS: ASPIRIN 325 MG TAB PO SCH (08:20)
[2017-11-15] MEDS: MUPIROCIN 2% OINT 22 GM TUBE NASAL SCH (08:21)
[2017-11-15] MEDS: CLOPIDOGREL 75 MG TAB PO SCH (08:21)
[2017-11-15 11:44] LABS: Glucose,Whole Blood 112 mg/dL (75-99)
--- NOTE | 2017-11-15 12:49 | P.PN ---
Subjective Progress Note Date: 11/15/17 Principal diagnosis: Symptomatic multivessel coronary artery disease, history of recurrent dizzy spells, ischemic cardiomyopathy with an ejection fraction of 30-35%, moderate LV dysfunction with akinesis in the inferior wall and posterior wall and apex, preventricular contractions, current long-standing history of tobacco dependence , hyperlipidemia, strong family history of coronary artery disease and need for bypass surgery, his sister was diagnosed with coronary artery disease at age 58 , history of COPD with a preoperative FEV1 of 72% of predicted and osteoarthritis. POD #2 triple-vessel coronary artery bypass grafting using the left internal mammary artery to the distal left anterior descending coronary artery, a reverse greater saphenous vein graft from the aorta to the diagonal coronary artery, a reverse greater saphenous vein graft from the aorta to the posterior descending coronary artery. Endoscopic harvesting of the left greater saphenous vein, intraoperative transesophageal echocardiogram, epi-aortic scanning and intraoperative graft flow measurement using the [employer] system. The patient is sitting up to the bedside chair. He is in no acute distress. Patient currently is complaining of pain to his chest tube insertion sites rating his pain 3 out of 10 on the pain scale. He ambulated in the ICU hallway yesterday 3-4 times with minimal assistance. Remains complaining of some right lower leg and foot numbness, he states he feels like it's from sitting to long and also states that it improves with walking.. His right foot is warm to touch with palpable dorsalis pedis and posterior tibial pulses. Objective - Vital Signs Vital signs: Vital Signs Temp 98.9 F 11/15/17 04:00 Pulse 86 11/15/17 07:00 Resp 19 11/15/17 07:00 BP 101/60 11/15/17 07:00 Pulse Ox 96 11/15/17 07:00 Intake & Output 11/14/17 11/15/17 11/15/17 18:59 06:59 18:59 Intake Total 759 342 26 Output Total 400 1150 40 Balance 359 -808 -14 Weight 87.9 kg 87.5 kg Intake: IV 639 342 26 CO/CI 20 Lactated Ringers 1,000 ml 550 270 20 @ 20 mls/hr IV .Q24H [facility] Rx#:[id number] Pressure Bag 69 72 6 Oral 120 Output: Chest Tube Drainage 470 Left Pleural 160 Mediastinal 310 Drainage 70 Left Lower Calf 70 Urine 400 610 40 Other: Voiding Method Indwelling Catheter Indwelling Catheter # Voids 1 ABP, PAP, CO, CI - Last Documented Arterial Blood Pressure 101/48 Pulmonary Artery Pressure 21/10 Cardiac Output 10.1 Cardiac Index 6.1 - Constitutional General appearance: Present: cooperative, no acute distress, thin - Respiratory Details: Lung sounds are essentially clear throughout, diminished to his bilateral bases. Respirations are symmetrical and nonlabored. Oxygen saturation are 97% on 4 L nasal cannula. He is achieving 1000 mL on his incentive spirometry. Mediastinal and left pleural chest tube in place to low continuous wall suction -20 cm H2O. No air leak present. Draining thin serosanguineous drainage. Mediastinal chest tube with 100 mL output in the last 8 hours, 320 mL output in the last 24 hours. Left pleural chest tube with 100 mL output in the last 8 hours, 200 mL output in the last 24 hours. - Cardiovascular Details: Regular rhythm and rate. S1 and S2 present, negative for S3, gallop or murmur. Sternum is stable. Bedside telemetry showing normal sinus rhythm with occasional PVCs, heart rate 92. Heart hugger is in place and he is demonstrating appropriate use. Knee-high JARRELL hose and sequential compression devices in place to his bilateral lower extremities. Atrial and ventricular epicardial pacemaker wires in place and grounded. Right IJ Cordis in place and functioning. Continue CVP monitoring, current CVP pressure is 3 mmHg. - Gastrointestinal Gastrointestinal Comment(s): Abdomen is soft, nontender and nondistended. Active bowel sounds to all 4 abdominal quadrants. Tolerating oral intake. Passing flatus. - Genitourinary Genitourinary Comment(s): Wallis catheter for accurate I&O. Draining clear christal urine. 360 mL output in the last 8 hours. - Integumentary Integumentary Comment(s): Skin is warm and dry. No clubbing or cyanosis present. Midline sternal incision clean dry and approximated. No drainage or redness present. Dermabond dressing clean and dry. Left leg EVH site clean dry and approximated. No drainage or redness present. Dermabond dressing clean and dry. Left leg ENDER drain draining thin serosanguineous drainage. 35 mL output in the last 8 hours, 70 mL output in the last 24 hours. - Neurologic Neurologic: Present: CNII-XII intact - Musculoskeletal Musculoskeletal Comment(s): Right foot weakness, walking with a limp to his right foot. - Psychiatric Psychiatric: Present: A&O x's 3, appropriate affect, intact judgment & insight - Allied health notes Allied health notes reviewed: nursing - Labs CBC & Chem 7: 11/15/17 04:30 11/15/17 04:30 Labs: Abnormal Lab Results - Last 24 Hours (Table) 11/14/17 11/14/17 11/14/17 Range/Units 12:12 16:48 20:19 RBC (4.30-5.90) m/uL Hgb (13.0-17.5) gm/dL Hct (39.0-53.0) % Plt Count (150-450) k/uL Monocytes # (0-1.0) k/uL BUN (9-20) mg/dL POC Glucose (mg/dL) 113 H 132 H 118 H (75-99) mg/dL Alkaline Phosphatase (38-126) U/L Total Protein (6.3-8.2) g/dL Albumin (3.5-5.0) g/dL 11/15/17 11/15/17 11/15/17 Range/Units 04:30 04:30 07:03 RBC 3.30 L (4.30-5.90) m/uL Hgb 10.3 L (13.0-17.5) gm/dL Hct 30.3 L (39.0-53.0) % Plt Count 125 L (150-450) k/uL Monocytes # 1.1 H (0-1.0) k/uL BUN 21 H (9-20) mg/dL POC Glucose (mg/dL) 105 H (75-99) mg/dL Alkaline Phosphatase 36 L (38-126) U/L Total Protein 4.7 L (6.3-8.2) g/dL Albumin 3.0 L (3.5-5.0) g/dL - Imaging and Cardiology Chest x-ray: report reviewed, image reviewed Assessment and Plan (1) Coronary artery disease Current Visit: Yes Status: Acute Code(s): I25.10 - ATHSCL HEART DISEASE OF [place] CORONARY ARTERY W/O ANG PCTRS SNOMED Code(s): 08130910 (2) Episode of dizziness Current Visit: Yes Status: Acute Code(s): R42 - DIZZINESS AND GIDDINESS SNOMED Code(s): 358571152 (3) Hyperlipidemia Current Visit: Yes Status: Acute Code(s): E78.5 - HYPERLIPIDEMIA, UNSPECIFIED SNOMED Code(s): 37370074 (4) Osteoarthritis Current Visit: Yes Status: Acute Code(s): M19.90 - UNSPECIFIED OSTEOARTHRITIS, UNSPECIFIED SITE SNOMED Code(s): 472100900 (5) Nicotine dependence Current Visit: Yes Status: Acute Code(s): F17.200 - NICOTINE DEPENDENCE, UNSPECIFIED, UNCOMPLICATED SNOMED Code(s): 75910314 (6) Ischemic cardiomyopathy Current Visit: Yes Status: Acute Code(s): I25.5 - ISCHEMIC CARDIOMYOPATHY SNOMED Code(s): 936002770 (7) Family history of coronary artery disease Current Visit: Yes Status: Acute Code(s): Z82.49 - FAMILY HX OF ISCHEM HEART DIS AND OTH DIS OF THE CIRC SYS SNOMED Code(s): 689574163 (8) COPD (chronic obstructive pulmonary disease) Current Visit: Yes Status: Acute Code(s): J44.9 - CHRONIC OBSTRUCTIVE PULMONARY DISEASE, UNSPECIFIED SNOMED Code(s): 54500981 Plan: 1. Continue aspirin, statin, subcu heparin and beta héctor. We will increase his metoprolol tartrate 50 mg by mouth twice a day. 2. Pulmonary recommendations per Dr. Castellanos. Wean oxygen as tolerated to keep oxygen saturations greater than 92%. 3. Encourage use of his incentive spirometry every hour while awake. 4. Monitor daily labs and chest x-rays. 5. GI and DVT prophylaxis. 6. We will discontinue right IJ Cordis. 7. Increase activity as tolerated, PT/OT and cardiac rehab following. 8. We will remove his mediastinal and left pleural chest tubes. 9. No diuresis today. Discontinue Wallis catheter. 10. We will transfer to the patient to [address] [place] [address]. 11. More recommendations to follow based on his clinical course. Time with Patient: Greater than 30
--- NOTE | 2017-11-15 15:07 | P.PN ---
Subjective Progress Note Date: 11/15/17 On 11/13 2017 I'm seeing this patient immediately after he arrived from the operating room. The patient is currently sedated, intubated on a mechanical ventilator. He is on 10 mics of propofol infusion. He is on assist control mode at the rate of 10 initially which I bumped it up to 20 , and addition to her tidal volume 600, FiO2 of 60% and a PEEP of 5. The chest x-ray showed adequate expansion of both lungs. No pneumothorax. ET tube is in a good location. The patient has a mediastinal and left pleural chest tube and the right IJ Wittman-Paulo catheter in place. The patient had a blood gas that showed a pH of 7.34 with a pCO2 of 50 and pO2 of 295 and this was on FiO2 of 100%. Postoperative hemoglobin is at 10.6. Hemodynamically, he has an adequate cardiac index, PA pressures 30/17, CVP is at 12. The output from the left pleural chest tube is 85 mL and a mediastinal chest tube is 45 mL since the patient arrived from the operating room. His current temperature is 97.7 and his only a few mics of norepinephrine infusion for blood pressure control. He is also on nitroglycerin drip per protocol. Cardiac rhythm is sinus. The patient has a backup pacemaker generator the rate of 50, VVI. On 11/14/2017, the patient is extubated and the patient is ambulating in the hallway. He has done extremely well and within a few hours after arriving to the intensive care unit the patient was extubated to nasal cannula. He remained hemodynamically stable and did not require any pressors or any other interventions. Cardiac rhythm is sinus. Chest tubes are in place. Output is around 280 MO's in 8 hours and a 50 MO since surgery and the mediastinal chest tube and 145 mL in 8 hours and to 50 mL since surgery in the left pleural chest tube. No evidence of any air leak. The patient is pulling approximately thousand on the incentive spirometer. Chest x-ray showed full expansion of both lungs without any pneumothorax. There is some increase atelectatic changes in lung bases and mild component of pulmonary vessel congestion. Currently on 2 L of oxygen nasal cannula with a pulse ox of 96%. The cardiac output as of 5.4. Index is at 2.6. PA pressures around 24/12. Surgical wound sites are clean. Pain scale is around 3 out of 10 in severity. On 11/15/2017 the patient remains hemodynamically stable. Output from the mediastinal tube is minimal and this will be removed. Patient has also left pleural chest tube in place. The patient is on no pressors. The patient is producing adequate amount of urine output. Earlier he developed some hypotension and he was given a dose of albumin. Otherwise no fever. No chills. No nausea. No vomiting. No cardiac arrhythmias and the patient rhythm remains sinus. Patient is able to sit up on a chair. He is having some numbness in his right lower extremity which is also improving. Objective - Vital Signs Vital signs: Vital Signs Temp 98.9 F 11/15/17 04:00 Pulse 86 11/15/17 11:32 Resp 19 11/15/17 07:00 BP 101/60 11/15/17 07:00 Pulse Ox 96 11/15/17 07:00 Intake & Output 11/14/17 11/15/17 11/15/17 18:59 06:59 18:59 Intake Total 759 342 26 Output Total 400 1150 40 Balance 359 -808 -14 Weight 87.9 kg 87.5 kg Intake: IV 639 342 26 CO/CI 20 Lactated Ringers 1,000 ml 550 270 20 @ 20 mls/hr IV .Q24H [facility] Rx#:[id number] Pressure Bag 69 72 6 Oral 120 Output: Chest Tube Drainage 470 Left Pleural 160 Mediastinal 310 Drainage 70 Left Lower Calf 70 Urine 400 610 40 Other: Voiding Method Indwelling Catheter Indwelling Catheter Indwelling Catheter # Voids 1 ABP, PAP, CO, CI - Last Documented Arterial Blood Pressure 101/48 Pulmonary Artery Pressure 21/10 Cardiac Output 10.1 Cardiac Index 6.1 - Exam Gen. appearance the patient is calm, likely distress. Ambulating. Head exam was generally normal. There was no scleral icterus or corneal arcus. Mucous membranes were moist. Neck was supple and without jugular venous distension, thyromegaly, or carotid bruits. Carotids were easily palpable bilaterally. There was no adenopathy. The patient has a right Cordis. Lungs were clear to auscultation and percussion, and with normal diaphragmatic excursion. No wheezes or rales were noted. Breath sounds are diminished in lung bases and the sternum stable clean and intact. Chest tubes are all in place. Cardiac exam revealed the PMI to be normally situated and sized. The rhythm was regular and no extrasystoles were noted during several minutes of auscultation. The first and second heart sounds were normal and physiologic splitting of the second heart sound was noted. There were no murmurs, rubs, clicks, or gallops. Abdominal exam revealed normal bowel sounds. The abdomen was soft, non-tender, and without masses, organomegaly, or appreciable enlargement of the abdominal aorta. Examination of the extremities revealed easily palpable radial, femoral and pedal pulses. There was no cyanosis, clubbing or edema. Examination of the skin revealed no evidence of significant rashes, suspicious appearing nevi or other concerning lesions. Neurologically the patient awake and alert and there is no focal neurological deficits. - Labs CBC & Chem 7: 11/15/17 04:30 11/15/17 04:30 Labs: Abnormal Lab Results - Last 24 Hours (Table) 11/14/17 11/14/17 11/15/17 Range/Units 16:48 20:19 04:30 RBC (4.30-5.90) m/uL Hgb (13.0-17.5) gm/dL Hct (39.0-53.0) % Plt Count (150-450) k/uL Monocytes # (0-1.0) k/uL BUN 21 H (9-20) mg/dL POC Glucose (mg/dL) 132 H 118 H (75-99) mg/dL Alkaline Phosphatase 36 L (38-126) U/L Total Protein 4.7 L (6.3-8.2) g/dL Albumin 3.0 L (3.5-5.0) g/dL 11/15/17 11/15/17 11/15/17 Range/Units 04:30 07:03 11:42 RBC 3.30 L (4.30-5.90) m/uL Hgb 10.3 L (13.0-17.5) gm/dL Hct 30.3 L (39.0-53.0) % Plt Count 125 L (150-450) k/uL Monocytes # 1.1 H (0-1.0) k/uL BUN (9-20) mg/dL POC Glucose (mg/dL) 105 H 112 H (75-99) mg/dL Alkaline Phosphatase (38-126) U/L Total Protein (6.3-8.2) g/dL Albumin (3.5-5.0) g/dL Assessment and Plan Plan: Assessment 1 multivessel coronary artery disease status post triple-vessel bypass surgery. Patient is postop day #2. The patient was extubated successfully without any major difficulties. Hemodynamically stable on no pressors. Chest tubes are still in place. The output from the mediastinal chest tube has been 100 mL in the past 8 hours and 3 20 mL over the past 24 hours. FROM the left-sided chest tube has been 100 mL over the past 8 hours and 200 mL over the past 24 hours. Cardiac rhythm is sinus. Hemodynamically stable. Surgical wound sites are all dry clean and intact. The patient is ambulating. Chest x-ray shows adequate expansion of both lungs and there is no evidence of any pneumothorax. The patient has small bilateral pleural effusions and atelectatic changes in lung bases. The patient using incentive spirometer and pulling approximately 1000. 2 post thoracotomy , chest tubes are still in place 3 ischemic cardiomyopathy with an ejection fraction of 30-35% 4 COPD mild at baseline 5 hyperlipidemia Plan Continue the use of incentive spirometer. Discontinue the right IJ Cordis. May consider removing the mediastinal chest tube. Hemodynamically stable. May move out of the intensive care unit at a later stage.
[2017-11-15 17:09] LABS: Glucose,Whole Blood 91 mg/dL (75-99)
--- NOTE | 2017-11-15 19:00 | PN ---
PROGRESS NOTE DATE OF SERVICE: 11/15/2017. INTERVAL HISTORY: This 57-year-old gentleman was admitted after CAD, CABG also, ischemic cardiomyopathy. No chest pain. No palpitations. No fever. PHYSICAL EXAM: Alert and oriented x3. Pulse 80, blood pressure 120/58, respiration 20, temperature normal, pulse ox 97% on room air. HEENT: Conjunctivae normal. NECK: No jugular venous distention. CARDIOVASCULAR: S1, S2. No S3, no S4. RESPIRATORY: Breath sounds diminished in the bases. A few scattered rhonchi. No crackles. ABDOMEN: Soft, nontender. LEGS: No edema, no swelling. NERVOUS SYSTEM: No focal deficits. LAB STUDIES: WBC 8.2, hemoglobin 10.5. ASSESSMENT: 1. Coronary artery disease, status post CABG. 2. Ischemic cardiomyopathy, ejection fraction 30-35%. 3. Family history of coronary artery disease. 4. History of nicotine dependence. 5. Hyperlipidemia. 6. Possible underlying chronic obstructive pulmonary disease. RECOMMENDATIONS AND DISCUSSION: I recommend to continue the current management and symptomatic treatment at this time. Incentive spirometer, bronchodilators. Continue rest of the medications. Further recommendations to follow. MMODL / IJN: [id number] /
[2017-11-15 21:01] LABS: Glucose,Whole Blood 168 mg/dL (75-99)
[2017-11-15] MEDS: SENNOSIDES-DOCUSATE SODIUM 1 EACH TAB PO SCH (21:32)
[2017-11-16] MEDS: HYDROcodone/APAP 5-325MG 1 EACH TAB PO PRN ×5 (03:57→21:54)
[2017-11-16 06:13] LABS: Glucose,Whole Blood 109 mg/dL (75-99)
[2017-11-16 06:34] LABS: Basophils % (A) 0 %; Eosinophils # (A) 0.2 k/uL (0-0.7); Eosinophils % (A) 2 %; HCT 30.6 % (39.0-53.0); HGB 10.3 gm/dL (13.0-17.5); Lymphocytes # (A) 1.2 k/uL (1.0-4.8); Lymphocytes % (A) 14 %; MCH 31.2 pg (25.0-35.0); MCHC 33.7 g/dL (31.0-37.0); MCV 92.5 fL (80.0-100.0); Mean Platelet Volume 8.3; Monocytes # (A) 1.1 k/uL (0-1.0); Monocytes % (A) 14 %; Neutrophils # (A) 5.3 k/uL (1.3-7.7); Neutrophils % (A) 67 %; Platelet Count 127 k/uL (150-450); RBC 3.31 m/uL (4.30-5.90)
[2017-11-16] MEDS: PANTOPRAZOLE 40 MG TABLET PO SCH (06:36)
[2017-11-16] MEDS: INSULIN ASPART 100 UNIT/ML 1 ML 10 ML VIAL SQ SCH ×4 (06:38→21:09)
[2017-11-16 06:39] LABS: ALT 25 U/L (21-72); AST 18 U/L (17-59); Albumin 3.2 g/dL (3.5-5.0); Alkaline Phosphatase 41 U/L (38-126); Anion Gap 10 mmol/L; Blood Urea Nitrogen 24 mg/dL (9-20); Calcium 8.5 mg/dL (8.4-10.2); Carbon Dioxide 27 mmol/L (22-30); Chloride 104 mmol/L (98-107); Glucose 103 mg/dL (74-99); Sodium 141 mmol/L (137-145); Total Bilirubin 0.6 mg/dL (0.2-1.3); Total Protein 5.1 g/dL (6.3-8.2)
--- NOTE | 2017-11-16 07:17 | XR ---
EXAMINATION TYPE: XR chest 2V DATE OF EXAM: 11/16/2017 HISTORY: Postop cardiac surgery. REFERENCE: Previous study dated 11/15/2017. FINDINGS: There has been a midline sternotomy. The patient's left pleural drain has been removed. The re are small, bilateral effusions. The heart is mildly enlarged. There is left basilar airspace disea se. IMPRESSION: 1. MILD CARDIOMEGALY. 2. SMALL, BILATERAL EFFUSIONS. 3. LEFT BASILAR AIRSPACE DISEASE.
[2017-11-16] MEDS: IPRATROPIUM-ALBUTEROL 3 ML NEB INHALATION SCH ×4 (07:43→19:29)
[2017-11-16] MEDS: ATORVASTATIN 40 MG TAB PO SCH (08:48)
[2017-11-16] MEDS: ASPIRIN 325 MG TAB PO SCH (08:48)
[2017-11-16] MEDS: CLOPIDOGREL 75 MG TAB PO SCH (08:48)
[2017-11-16] MEDS: METOPROLOL TARTRATE 50 MG TAB PO SCH ×2 (08:48→21:14)
[2017-11-16] MEDS: HEPARIN SODIUM,PORCINE 5,000 UNIT/ML 1 ML VIAL SQ SCH ×3 (08:48→23:33)
--- NOTE | 2017-11-16 09:52 | P.PN ---
Subjective Progress Note Date: 11/16/17 Principal diagnosis: Symptomatic multivessel coronary artery disease, history of recurrent dizzy spells, ischemic cardiomyopathy with an ejection fraction of 30-35%, moderate LV dysfunction with akinesis in the inferior wall and posterior wall and apex, preventricular contractions, current long-standing history of tobacco dependence , hyperlipidemia, strong family history of coronary artery disease and need for bypass surgery, his sister was diagnosed with coronary artery disease at age 58 , history of COPD with a preoperative FEV1 of 72% of predicted and osteoarthritis. POD #3 triple-vessel coronary artery bypass grafting using the left internal mammary artery to the distal left anterior descending coronary artery, a reverse greater saphenous vein graft from the aorta to the diagonal coronary artery, a reverse greater saphenous vein graft from the aorta to the posterior descending coronary artery. Endoscopic harvesting of the left greater saphenous vein, intraoperative transesophageal echocardiogram, epi-aortic scanning and intraoperative graft flow measurement using the [employer] system. The patient is sitting up to the bedside chair. He is in no acute distress. Denies any complaints of pain or shortness of breath at this time. He remains complaining of left foot numbness with sitting. He ambulated in the [address] [place] [address] this a.m. with minimal assistance, continues to have somewhat of an exaggerated gait to his right foot. Oxygen saturation is 95% on 2 L nasal cannula. He is achieving 1500 mL on his incentive spirometry. He reports that his nagging cough is much improved today. Objective - Vital Signs Vital signs: Vital Signs Temp 97 F L 11/16/17 08:46 Pulse 84 11/16/17 08:46 Resp 16 11/16/17 08:46 BP 120/62 11/16/17 08:46 Pulse Ox 95 11/16/17 08:46 Intake & Output 11/15/17 11/16/17 11/16/17 18:59 06:59 18:59 Intake Total 245 240 Output Total 360 350 Balance -115 -350 240 Weight 84.9 kg Intake: IV 245 Lactated Ringers 1,000 ml 200 @ 20 mls/hr IV .Q24H [facility] Rx#:[id number] Pressure Bag 45 Oral 240 Output: Urine 360 350 Other: Voiding Method Indwelling Catheter Urinal Urinal ABP, PAP, CO, CI - Last Documented Arterial Blood Pressure 121/58 Pulmonary Artery Pressure 21/10 Cardiac Output 10.1 Cardiac Index 6.1 - Constitutional General appearance: Present: cooperative, no acute distress - Respiratory Details: Lung sounds are essentially clear throughout. Respirations are symmetrical and nonlabored. Oxygen saturation are 95% on 2 L nasal cannula. He is achieving 1500 mL on his incentive spirometry. His mediastinal and left pleural chest tubes were removed yesterday 11/15/2017. - Cardiovascular Details: Regular rhythm and rate. S1 and S2 present, negative for S3, gallop or murmur. Sternum is stable. Her most telemetry showing normal sinus rhythm heart rate 85. Heart hugger is in place and he is demonstrating appropriate use. Atrial and ventricular epicardial pacemaker wires intact and grounded. No edema present. Knee-high JARRELL hose and sequential compression devices in place to his bilateral lower extremities. Bilateral feet warm to touch. Palpable posterior tibial and dorsalis pedis pulses to his bilateral lower extremities. - Gastrointestinal Gastrointestinal Comment(s): Abdomen is soft, nontender and nondistended. Active bowel sounds all 4 abdominal quadrants. Tolerating oral intake. Passing flatus. No bowel movement since surgery. - Genitourinary Genitourinary Comment(s): Voiding clear christal urine. - Integumentary Integumentary Comment(s): Skin is warm and dry. No clubbing or cyanosis present. Midline sternal incision clean dry and approximated. No drainage or redness present. Left leg EVH site clean dry and approximated. No drainage or redness present. Dermabond dressing clean and dry - Neurologic Neurologic: Present: CNII-XII intact - Musculoskeletal Musculoskeletal Comment(s): Exaggerated gait to his right foot. - Psychiatric Psychiatric: Present: A&O x's 3, appropriate affect, intact judgment & insight - Allied health notes Allied health notes reviewed: nursing - Labs CBC & Chem 7: 11/16/17 06:10 11/16/17 06:10 Labs: Abnormal Lab Results - Last 24 Hours (Table) 11/15/17 11/15/17 11/15/17 Range/Units 04:30 11:42 21:00 RBC 3.30 L (4.30-5.90) m/uL Hgb 10.3 L (13.0-17.5) gm/dL Hct 30.3 L (39.0-53.0) % Plt Count 125 L (150-450) k/uL Monocytes # 1.1 H (0-1.0) k/uL BUN (9-20) mg/dL Glucose (74-99) mg/dL POC Glucose (mg/dL) 112 H 168 H (75-99) mg/dL Total Protein (6.3-8.2) g/dL Albumin (3.5-5.0) g/dL 11/16/17 11/16/17 11/16/17 Range/Units 06:01 06:10 06:10 RBC 3.31 L (4.30-5.90) m/uL Hgb 10.3 L (13.0-17.5) gm/dL Hct 30.6 L (39.0-53.0) % Plt Count 127 L (150-450) k/uL Monocytes # 1.1 H (0-1.0) k/uL BUN 24 H (9-20) mg/dL Glucose 103 H (74-99) mg/dL POC Glucose (mg/dL) 109 H (75-99) mg/dL Total Protein 5.1 L (6.3-8.2) g/dL Albumin 3.2 L (3.5-5.0) g/dL - Imaging and Cardiology Chest x-ray: report reviewed, image reviewed Assessment and Plan (1) Coronary artery disease Current Visit: Yes Status: Acute Code(s): I25.10 - ATHSCL HEART DISEASE OF [place] CORONARY ARTERY W/O ANG PCTRS SNOMED Code(s): 21639751 (2) Episode of dizziness Current Visit: Yes Status: Acute Code(s): R42 - DIZZINESS AND GIDDINESS SNOMED Code(s): 509698218 (3) Hyperlipidemia Current Visit: Yes Status: Acute Code(s): E78.5 - HYPERLIPIDEMIA, UNSPECIFIED SNOMED Code(s): 12484896 (4) Osteoarthritis Current Visit: Yes Status: Acute Code(s): M19.90 - UNSPECIFIED OSTEOARTHRITIS, UNSPECIFIED SITE SNOMED Code(s): 969048875 (5) Nicotine dependence Current Visit: Yes Status: Acute Code(s): F17.200 - NICOTINE DEPENDENCE, UNSPECIFIED, UNCOMPLICATED SNOMED Code(s): 00167122 (6) Ischemic cardiomyopathy Current Visit: Yes Status: Acute Code(s): I25.5 - ISCHEMIC CARDIOMYOPATHY SNOMED Code(s): 153636878 (7) Family history of coronary artery disease Current Visit: Yes Status: Acute Code(s): Z82.49 - FAMILY HX OF ISCHEM HEART DIS AND OTH DIS OF THE CIRC SYS SNOMED Code(s): 596245708 (8) COPD (chronic obstructive pulmonary disease) Current Visit: Yes Status: Acute Code(s): J44.9 - CHRONIC OBSTRUCTIVE PULMONARY DISEASE, UNSPECIFIED SNOMED Code(s): 86772968 Plan: 1. Continue aspirin, statin, Plavix, subcu heparin and beta héctor. We will increase his metoprolol tartrate as tolerated. 2. Pulmonary recommendations per Dr. Castellanos. Wean oxygen as tolerated to keep oxygen saturations greater than 92%. 3. Encourage use of his incentive spirometry every hour while awake. 4. Monitor daily labs and chest x-rays. 5. GI and DVT prophylaxis. 6. We will order a limited 2-D echocardiogram to assess his LV function. Preoperative EF 30-35%. Patient may need a LifeVest upon discharge. 7. Increase activity as tolerated, PT/OT and cardiac rehab following. 8. Importance of smoking cessation discussed with the patient. 9. No diuresis today. 10. We will remove his epicardial pacemaker wires on Saturday. 11. More recommendations to follow based on his clinical course. Anticipate discharge home on 11/18/2017. Time with Patient: Greater than 30
[2017-11-16 12:17] LABS: Glucose,Whole Blood 122 mg/dL (75-99)
--- NOTE | 2017-11-16 12:44 | P.PN ---
Subjective Patient is a status post CABG, he was lying with bit with no acute distress, no chest pain, no dyspnea Vitas looks stable, hemoglobin is 10.3 which is a stable , no leukocytosis with mild thrombocytopenia at 127, creatinine 0.9, repeat chest x-ray from today shows mild cardiomegaly small bilateral pleural effusion , left basilar airway disease After the surgery patient was complaining of from right ankle numbness, no difficulty walking, no specific weakness, no blurred vision, no difficulty in speech, no headache Objective - Vital Signs Vital signs: Vital Signs Temp 97 F L 11/16/17 08:46 Pulse 76 11/16/17 11:35 Resp 16 11/16/17 11:40 BP 106/62 11/16/17 11:35 Pulse Ox 92 L 11/16/17 11:40 Intake & Output 11/15/17 11/16/17 11/16/17 18:59 06:59 18:59 Intake Total 245 240 Output Total 360 350 Balance -115 -350 240 Weight 84.9 kg Intake: IV 245 Lactated Ringers 1,000 ml 200 @ 20 mls/hr IV .Q24H [facility] Rx#:[id number] Pressure Bag 45 Oral 240 Output: Urine 360 350 Other: Voiding Method Indwelling Catheter Urinal Urinal ABP, PAP, CO, CI - Last Documented Arterial Blood Pressure 121/58 Pulmonary Artery Pressure 21/10 Cardiac Output 10.1 Cardiac Index 6.1 - Exam Constitutional: No acute distress, conversant, pleasant Eyes: Anicteric sclerae, moist conjunctiva, no lid-lag PERRLA ENMT: NC/AT Oropharynx clear, no erythema, exudates Neck: Supple, FROM, no masses, or JVD No carotid bruits No thyromegaly Lungs: Clear to auscultation Clear to percussion Normal respiratory effort, no accessory muscle use Cardiovascular: Heart regular in rate and rhythm, No murmurs, gallops, or rubs No peripheral edema Abdominal: Soft Nontender, no guarding, rebound or rigidity Abdomen moving with respiration Normoactive bowel sounds No palpable mass No abdominal wall hernia noted Skin: Normal temperature, tone, texture, turgor No induration No subcutaneous nodules No rash, lesions No ulcers Extremities: No digital cyanosis No clubbing Pedal pulses intact and symmetrical Radial pulses intact and symmetrical Normal gait and station No calf tenderness Psychiatric: Alert and oriented to person, place and time Appropriate affect Intact judgement Neuro: Muscles Strength 5/5 in all 4 extremities Sensation to light touch grossly present throughout Cranial nerves II-XII grossly intact No focal sensory deficits - Labs CBC & Chem 7: 11/16/17 06:10 11/16/17 06:10 Labs: Abnormal Lab Results - Last 24 Hours (Table) 11/15/17 11/15/17 11/16/17 Range/Units 04:30 21:00 06:01 RBC 3.30 L (4.30-5.90) m/uL Hgb 10.3 L (13.0-17.5) gm/dL Hct 30.3 L (39.0-53.0) % Plt Count 125 L (150-450) k/uL Monocytes # 1.1 H (0-1.0) k/uL BUN (9-20) mg/dL Glucose (74-99) mg/dL POC Glucose (mg/dL) 168 H 109 H (75-99) mg/dL Total Protein (6.3-8.2) g/dL Albumin (3.5-5.0) g/dL 11/16/17 11/16/17 Range/Units 06:10 06:10 RBC 3.31 L (4.30-5.90) m/uL Hgb 10.3 L (13.0-17.5) gm/dL Hct 30.6 L (39.0-53.0) % Plt Count 127 L (150-450) k/uL Monocytes # 1.1 H (0-1.0) k/uL BUN 24 H (9-20) mg/dL Glucose 103 H (74-99) mg/dL POC Glucose (mg/dL) (75-99) mg/dL Total Protein 5.1 L (6.3-8.2) g/dL Albumin 3.2 L (3.5-5.0) g/dL Assessment and Plan Assessment: Triple-vessel coronary artery disease. Status post CABG Ischemic cardiomyopathy ejection fraction 30-35% with inferior wall akinesis Exertional short of breath and dizziness Family history of coronary disease Nicotine addiction Hyperlipidemia Osteoarthritis Possible underlying COPD with long-standing history of smoking DVT prophylaxis Plan: This is a 57 years old male with triple-vessel disease, S/p CABG, he tolerated the procedure well he was lying in bed with no difficulties with anticipated discharge in this coming week, cardiothoracic surgery on the case, pulmonary evaluation is also appreciated,Continue the use of incentive spirometer., Continue with aspirin and Plavix, and statin, patient is complaining of from new right ankle pain which was not present before surgery, recommended urological evaluation for the patient and discussed with the staff, continue with DVT and GI prophylaxis
--- NOTE | 2017-11-16 13:23 | ECHOF ---
Referral Reason:Assess LV function, preop EF 30-35%. MEASUREMENTS -------- HEIGHT: 188.0 cm WEIGHT: 84.8 kg BP: 120/62 IVSd: 1.4 cm (0.6 - 1.1) LVIDd: 4.9 cm (3.9 - 5.3) LVPWd: 1.3 cm (0.6 - 1.1) IVSs: 2.0 cm LVIDs: 4.1 cm LVPWs: 1.7 cm LA Diam: 4.8 cm (2.7 - 3.8) FINDINGS -------- Sinus rhythm. Limited Study Overall left ventricular systolic function is severely impaired with, an EF between 25 - 30 %. Apic al septum LV wall motion is akinetic. Global hypokinesia with large apical aneurysm. There is no pericardial effusion. CONCLUSIONS -------- 1. Sinus rhythm. 2. Limited Study 3. Apical septum LV wall motion is akinetic. 4. There is no pericardial effusion. MEDICAL STAFFING COORDINATOR: Joelle South RDCS
--- NOTE | 2017-11-16 13:26 | P.PN ---
Subjective Progress Note Date: 11/16/17 This is a 57-year-old gentleman who follows with Dr. García in the office. He had been experiencing intermittent symptoms of lightheadedness and atypical chest discomfort. He underwent an echocardiogram by Dr. Sampson which revealed severe cardiac myopathy with an ejection fraction of approximately 30% , for that reason he was advised to undergo cardiac catheterization. This was performed on admission here by Dr. Oseguera. Cath revealed severe triple-vessel coronary artery disease on the patient was seen in consultation by cardiothoracic surgery and will be scheduled to undergo coronary bypass grafting surgery on Saturday. Hemodynamically the patient is stable, heart rate in the high 40s to low 50s, he acutely with ambulation. No lab data performed today. Patient denies any chest discomfort, breathing is overall stable. No dizziness or lightheadedness. 11/11/2017 Patient was seen and examined this morning, doing well, denies any chest pain or difficulty in breathing. He's been up ambulating without any difficulty. Good for coronary artery bypass grafting surgery on Saturday. 11/12/2017 Patient seen and examined this morning, he's been up ambulating in the hallway most of the day today. Denies any chest pain, his breathing has been stable. Hemodynamically he is stable. Patient is scheduled to undergo coronary artery bypass grafting surgery tomorrow at 8 AM. 11/16/2017 Patient was seen and examined this morning on the telemetry unit, he is status post coronary artery bypass grafting surgery and progressing quite well. He still has some numbness and tingling in his right leg, which she states he's been having since he's been in the intensive care unit post surgery. He does feel like the leg is weak, and does have some numbness and tingling intermittently. Patient does have good pulses in his right leg. He intermittently feels numbness and tingling in 2 fingers on his right hand as well. Overall he is doing good, denies any chest pain, breathing is stable. Hemodynamically he is stable. Objective - Vital Signs Vital signs: Vital Signs Temp 97 F L 11/16/17 08:46 Pulse 76 11/16/17 11:35 Resp 16 11/16/17 11:40 BP 106/62 11/16/17 11:35 Pulse Ox 92 L 11/16/17 11:40 Intake & Output 11/15/17 11/16/17 11/16/17 18:59 06:59 18:59 Intake Total 245 240 Output Total 360 350 300 Balance -115 -350 -60 Weight 84.9 kg Intake: IV 245 Lactated Ringers 1,000 ml 200 @ 20 mls/hr IV .Q24H [facility] Rx#:[id number] Pressure Bag 45 Oral 240 Output: Urine 360 350 300 Other: Voiding Method Indwelling Catheter Urinal Urinal ABP, PAP, CO, CI - Last Documented Arterial Blood Pressure 121/58 Pulmonary Artery Pressure 21/10 Cardiac Output 10.1 Cardiac Index 6.1 - Exam PHYSICAL EXAMINATION: HEENT: Head is atraumatic, normocephalic. Pupils equal, round. Neck is supple. There is no elevated jugular venous pressure. HEART EXAMINATION: Heart S1, S2 normal. No murmur or gallop heard. CHEST EXAMINATION: Lungs are clear to auscultation and precussion. No chest wall tenderness is noted on palpation or with deep breathing. ABDOMEN: Soft, nontender. Bowel sounds are heard. No organomegaly noted. EXTREMITIES: 2+ peripheral pulses with no evidence of peripheral edema and no calf tenderness noted. NEUROLOGIC patient is awake, alert and oriented -3. . - Labs CBC & Chem 7: 11/16/17 06:10 11/16/17 06:10 Labs: Abnormal Lab Results - Last 24 Hours (Table) 11/15/17 11/15/17 11/16/17 Range/Units 04:30 21:00 06:01 RBC 3.30 L (4.30-5.90) m/uL Hgb 10.3 L (13.0-17.5) gm/dL Hct 30.3 L (39.0-53.0) % Plt Count 125 L (150-450) k/uL Monocytes # 1.1 H (0-1.0) k/uL BUN (9-20) mg/dL Glucose (74-99) mg/dL POC Glucose (mg/dL) 168 H 109 H (75-99) mg/dL Total Protein (6.3-8.2) g/dL Albumin (3.5-5.0) g/dL 11/16/17 11/16/17 11/16/17 Range/Units 06:10 06:10 11:56 RBC 3.31 L (4.30-5.90) m/uL Hgb 10.3 L (13.0-17.5) gm/dL Hct 30.6 L (39.0-53.0) % Plt Count 127 L (150-450) k/uL Monocytes # 1.1 H (0-1.0) k/uL BUN 24 H (9-20) mg/dL Glucose 103 H (74-99) mg/dL POC Glucose (mg/dL) 122 H (75-99) mg/dL Total Protein 5.1 L (6.3-8.2) g/dL Albumin 3.2 L (3.5-5.0) g/dL Assessment and Plan Plan: Assessment and Plan #1 triple-vessel coronary artery disease, status post cardiac catheterization, status post coronary artery bypass grafting surgery #2 ischemic cardiomyopathy #3 hyperlipidemia #[address] Castellanos will speak with cardiothoracic surgery regarding the patient's symptoms of numbness and tingling in his right leg. From our perspective we will continue the patient on his current medications. Arrangements are being made for possible discharge home on Saturday. DNP note has been reviewed, I agree with a documented findings and plan of care. Patient was seen and examined.
--- NOTE | 2017-11-16 13:39 | P.CONS ---
History of Present Illness - Reason for Consult Consult date: 11/16/17 Right foot numbness - History of Present Illness He was admitted to the [facility] by Dr. Hall. A heart catheterization revealed severe triple-vessel coronary disease. He is status post coronary artery bypass grafting. He didn't notice that since awaking in the recovery room he has had some right lower extremity numbness and tingling. Specifically to the foot and ankle. Evaluated by cardiology and he does have good pulses in his right leg. He gives a significant history of lumbar surgery in 2010. His presenting symptoms were that of severe bilateral radiculopathy. He believes it was at the L5-S1 level. He denies any significant neck pain or sphincter incontinence. My exam he is resting comfortably sitting up at his bedside chair. Review of Systems Constitutional: Reports as per HPI Past Medical History Past Medical History: Coronary Artery Disease (CAD), COPD, Hyperlipidemia, Neurologic Disorder, Osteoarthritis (OA), Pneumonia Additional Past Medical History / Comment(s): 2 episodes 04/2017 and 06/2017- not sure if stroke or GA-possible GA x 2, ischemic cardiomyopathy, ejection fraction 30-35%. History of Any Multi-Drug Resistant Organisms: None Reported Past Surgical History: Back Surgery, Orthopedic Surgery Additional Past Surgical History / Comment(s): arthroscopy rt knee Past Anesthesia/Blood Transfusion Reactions: No Reported Reaction Past Psychological History: No Psychological Hx Reported Smoking Status: Current every day smoker Past Alcohol Use History: Rare Additional Past Alcohol Use History / Comment(s): down to 4 cigarettes daily, for 40 yrs Past Drug Use History: None Reported - Past Family History Mother Family Medical History: Cancer Medications and Allergies Home Medications Medication Instructions Recorded Confirmed Type Albuterol Nebulized [Ventolin 2.5 mg INHALATION RT-TID PRN 11/05/17 11/09/17 History Nebulized] Aspirin [Adult Low Dose Aspirin EC] 81 mg PO DAILY 11/05/17 11/09/17 History Atorvastatin [Lipitor] 40 mg PO W/SUPPER 11/05/17 11/09/17 History Naproxen Sodium [Aleve] 440 mg PO Q12HR 11/05/17 11/09/17 History Isosorbide Mononitrate [Isosorbide 15 mg PO DAILY@1200 11/06/17 11/09/17 History Mononitrate ER] Metoprolol Succinate [Toprol XL] 25 mg PO DAILY 11/06/17 11/09/17 History traMADol HCL [Ultram] 50 mg PO BID PRN 11/06/17 11/09/17 History Lisinopril [Zestril] 2.5 mg PO DAILY #90 tab 11/08/17 Rx Allergies Allergy/AdvReac Type Severity Reaction Status Date / Time terbinafine [From Lamisil] AdvReac Rash/Hives Verified 11/13/17 06:24 Physical Exam Vitals: Vital Signs Temp Pulse Pulse Resp BP BP BP 11/16/17 11:40 16 11/16/17 11:35 76 16 106/62 11/16/17 11:34 96 11/16/17 11:24 92 11/16/17 08:46 97 F L 84 16 120/62 11/16/17 08:40 16 11/16/17 07:33 11/16/17 03:55 98.6 F 65 18 100/64 11/15/17 23:45 99.6 F 95 18 112/67 11/15/17 20:45 99.6 F 95 18 112/67 11/15/17 19:26 97 11/15/17 19:14 92 11/15/17 16:00 98.0 F 85 19 114/70 11/15/17 15:30 79 11/15/17 15:20 74 11/15/17 15:00 80 20 11/15/17 14:00 82 18 Pulse Ox 11/16/17 11:40 92 L 11/16/17 11:35 98 11/16/17 11:34 11/16/17 11:24 94 L 11/16/17 08:46 95 11/16/17 08:40 11/16/17 07:33 93 L 11/16/17 03:55 93 L 11/15/17 23:45 96 11/15/17 20:45 96 11/15/17 19:26 11/15/17 19:14 95 11/15/17 16:00 98 11/15/17 15:30 11/15/17 15:20 11/15/17 15:00 97 11/15/17 14:00 94 L Intake and Output 11/15/17 11/16/17 11/16/17 22:59 06:59 14:59 Intake Total 43 240 Output Total 200 250 300 Balance -157 -250 -60 Intake: IV 43 Lactated Ringers 1,000 ml 40 @ 20 mls/hr IV .Q24H [facility] Rx#:[id number] Pressure Bag 3 Oral 240 Output: Urine 200 250 300 Other: Voiding Method Urinal Urinal Urinal Weight 84.9 kg - Constitutional General appearance: average body habitus, mild distress - EENT Eyes: no abnormal pupil, PERRLA, no ptosis ENT: hearing grossly normal - Neck Neck: normal ROM, no rigidity - Respiratory Respiratory: negative: prolonged expiration, prolonged inspiration - Cardiovascular Rhythm: regular - Gastrointestinal General gastrointestinal: no distended, no tenderness - Neurologic The patient is alert awake and oriented 3. Speech and language are normal. There is no facial asymmetry. Strength is 5 out of 5 in bilateral upper and lower extremities. There is minor sensory deficit to the right foot and ankle. No tremors or seizures are seen. Cranial nerves II through XII are intact globally. Results CBC & Chem 7: 11/16/17 06:10 11/16/17 06:10 Labs: Abnormal Lab Results - Last 24 Hours (Table) 11/15/17 11/15/17 11/16/17 Range/Units 04:30 21:00 06:01 RBC 3.30 L (4.30-5.90) m/uL Hgb 10.3 L (13.0-17.5) gm/dL Hct 30.3 L (39.0-53.0) % Plt Count 125 L (150-450) k/uL Monocytes # 1.1 H (0-1.0) k/uL BUN (9-20) mg/dL Glucose (74-99) mg/dL POC Glucose (mg/dL) 168 H 109 H (75-99) mg/dL Total Protein (6.3-8.2) g/dL Albumin (3.5-5.0) g/dL 11/16/17 11/16/17 11/16/17 Range/Units 06:10 06:10 11:56 RBC 3.31 L (4.30-5.90) m/uL Hgb 10.3 L (13.0-17.5) gm/dL Hct 30.6 L (39.0-53.0) % Plt Count 127 L (150-450) k/uL Monocytes # 1.1 H (0-1.0) k/uL BUN 24 H (9-20) mg/dL Glucose 103 H (74-99) mg/dL POC Glucose (mg/dL) 122 H (75-99) mg/dL Total Protein 5.1 L (6.3-8.2) g/dL Albumin 3.2 L (3.5-5.0) g/dL Assessment and Plan (1) Numbness of right foot Current Visit: Yes Status: Acute Code(s): R20.0 - ANESTHESIA OF SKIN SNOMED Code(s): 309507553 (2) Chronic low back pain Current Visit: Yes Status: Chronic Code(s): M54.5 - LOW BACK PAIN; G89.29 - OTHER CHRONIC PAIN SNOMED Code(s): 107788784 (3) Postlaminectomy syndrome of lumbosacral region Current Visit: Yes Status: Chronic Code(s): M96.1 - POSTLAMINECTOMY SYNDROME , NOT ELSEWHERE CLASSIFIED SNOMED Code(s): 325849691 (4) Coronary artery disease Current Visit: Yes Status: Chronic Code(s): I25.10 - ATHSCL HEART DISEASE OF [place] CORONARY ARTERY W/O ANG PCTRS SNOMED Code(s): 79544310 Plan: The history and physical of this gentleman suggest he is having some radicular symptoms given his history of chronic low back pain and L5-S1 surgery. This may have been due to positional irritation during his recent CABG. He feels it seems to be resolving somewhat. He no longer had significant weakness in that foot. He is still having some decreased sensation. There does not seem to be any vascular compromise. His indicates that he had a recent MRI of the lumbar spine in preparation for follow-up with his neurosurgeon. We do recommend electrophysiologic testing in outpatient setting. Otherwise he needs no further neurological workup and patient. I have performed a history and physical on the above patient. I have reviewed the above note, and agree.
--- NOTE | 2017-11-16 13:53 | P.PN ---
Subjective Progress Note Date: 11/16/17 Principal diagnosis: Severe triple-vessel coronary artery disease This is a very pleasant 57-year-old gentleman who was found to have severe coronary artery disease. Cardiac catheterization revealed chronic total occlusion of the mid RCA, intermediate to severe disease in the ostial left circumflex and severe disease involving the LAD. Ejection fraction 20%. The plan is for coronary artery bypass grafting tomorrow morning. He does have a history of hyperlipidemia, degenerative joint disease, previous pneumonia, ischemic cardiomyopathy with previous myocardial infarction. Today he is awake and alert in no acute distress. He denies any further chest pain, palpitations, lightheadedness or dizziness. No shortness of breath, cough or congestion. He is pulling 2700 mL on his incentive spirometer. FEV1 value 72% of predicted. He is maintaining good O2 saturations in the high 90s on room air. He's been afebrile. Hemodynamically stable. No lab abnormalities. On 11/13 2017 I'm seeing this patient immediately after he arrived from the operating room. The patient is currently sedated, intubated on a mechanical ventilator. He is on 10 mics of propofol infusion. He is on assist control mode at the rate of 10 initially which I bumped it up to 20 , and addition to her tidal volume 600, FiO2 of 60% and a PEEP of 5. The chest x-ray showed adequate expansion of both lungs. No pneumothorax. ET tube is in a good location. The patient has a mediastinal and left pleural chest tube and the right IJ Fairhope-Paulo catheter in place. The patient had a blood gas that showed a pH of 7.34 with a pCO2 of 50 and pO2 of 295 and this was on FiO2 of 100%. Postoperative hemoglobin is at 10.6. Hemodynamically, he has an adequate cardiac index, PA pressures 30/17, CVP is at 12. The output from the left pleural chest tube is 85 mL and a mediastinal chest tube is 45 mL since the patient arrived from the operating room. His current temperature is 97.7 and his only a few mics of norepinephrine infusion for blood pressure control. He is also on nitroglycerin drip per protocol. Cardiac rhythm is sinus. The patient has a backup pacemaker generator the rate of 50, VVI. On 11/14/2017, the patient is extubated and the patient is ambulating in the hallway. He has done extremely well and within a few hours after arriving to the intensive care unit the patient was extubated to nasal cannula. He remained hemodynamically stable and did not require any pressors or any other interventions. Cardiac rhythm is sinus. Chest tubes are in place. Output is around 280 MO's in 8 hours and a 50 MO since surgery and the mediastinal chest tube and 145 mL in 8 hours and to 50 mL since surgery in the left pleural chest tube. No evidence of any air leak. The patient is pulling approximately thousand on the incentive spirometer. Chest x-ray showed full expansion of both lungs without any pneumothorax. There is some increase atelectatic changes in lung bases and mild component of pulmonary vessel congestion. Currently on 2 L of oxygen nasal cannula with a pulse ox of 96%. The cardiac output as of 5.4. Index is at 2.6. PA pressures around 24/12. Surgical wound sites are clean. Pain scale is around 3 out of 10 in severity. On 11/15/2017 the patient remains hemodynamically stable. Output from the mediastinal tube is minimal and this will be removed. Patient has also left pleural chest tube in place. The patient is on no pressors. The patient is producing adequate amount of urine output. Earlier he developed some hypotension and he was given a dose of albumin. Otherwise no fever. No chills. No nausea. No vomiting. No cardiac arrhythmias and the patient rhythm remains sinus. Patient is able to sit up on a chair. He is having some numbness in his right lower extremity which is also improving. The patient is seen again today 11/16/2017 in follow-up on the selective care unit. He's been up ambulating in the hallway with assistance. He does continue to have some weakness of the right lower extremity and some foot drop. Otherwise he is doing quite well. He denies any worsening shortness of breath , cough or congestion. He is maintaining good O2 saturations in the low 90s on room air. He's been afebrile. Hemodynamically stable. Today's chest x-ray reveals mild cardiomegaly and small bilateral pleural effusions with some left basilar airspace disease. He is working well with the incentive spirometer and cough and deep breathing exercises. White count 8.0. Hemoglobin 10.3. Creatinine 0.90. Objective - Vital Signs Vital signs: Vital Signs Temp 97 F L 11/16/17 08:46 Pulse 76 11/16/17 11:35 Resp 16 11/16/17 11:40 BP 106/62 11/16/17 11:35 Pulse Ox 92 L 11/16/17 11:40 Intake & Output 11/15/17 11/16/17 11/16/17 18:59 06:59 18:59 Intake Total 245 240 Output Total 360 350 300 Balance -115 -350 -60 Weight 84.9 kg Intake: IV 245 Lactated Ringers 1,000 ml 200 @ 20 mls/hr IV .Q24H [facility] Rx#:[id number] Pressure Bag 45 Oral 240 Output: Urine 360 350 300 Other: Voiding Method Indwelling Catheter Urinal Urinal ABP, PAP, CO, CI - Last Documented Arterial Blood Pressure 121/58 Pulmonary Artery Pressure 21/10 Cardiac Output 10.1 Cardiac Index 6.1 - Exam GENERAL EXAM: Alert, active, comfortable in no apparent distress. HEAD: Normocephalic. EYES: Normal reaction of pupils, equal size. NOSE: Clear with pink turbinates. THROAT: No erythema or exudates. NECK: No masses, no JVD. CHEST: Sternal dressing history. Stable. LUNGS: Equal air entry with crackles in the posterior bases.. CVS: S1 and S2 normal with no audible murmur, regular rhythm. ABDOMEN: No hepatosplenomegaly, normal bowel sounds, no guarding or rigidity. SPINE: No scoliosis or deformity SKIN: No rashes CENTRAL NERVOUS SYSTEM: No focal deficits, tone is normal in all 4 extremities. EXTREMITIES: There is no peripheral edema. No clubbing, no cyanosis. Peripheral pulses are intact. Some tingling and numbness, weakness of the right lower extremity. - Labs CBC & Chem 7: 11/16/17 06:10 11/16/17 06:10 Labs: Abnormal Lab Results - Last 24 Hours (Table) 11/15/17 11/15/17 11/16/17 Range/Units 04:30 21:00 06:01 RBC 3.30 L (4.30-5.90) m/uL Hgb 10.3 L (13.0-17.5) gm/dL Hct 30.3 L (39.0-53.0) % Plt Count 125 L (150-450) k/uL Monocytes # 1.1 H (0-1.0) k/uL BUN (9-20) mg/dL Glucose (74-99) mg/dL POC Glucose (mg/dL) 168 H 109 H (75-99) mg/dL Total Protein (6.3-8.2) g/dL Albumin (3.5-5.0) g/dL 11/16/17 11/16/17 11/16/17 Range/Units 06:10 06:10 11:56 RBC 3.31 L (4.30-5.90) m/uL Hgb 10.3 L (13.0-17.5) gm/dL Hct 30.6 L (39.0-53.0) % Plt Count 127 L (150-450) k/uL Monocytes # 1.1 H (0-1.0) k/uL BUN 24 H (9-20) mg/dL Glucose 103 H (74-99) mg/dL POC Glucose (mg/dL) 122 H (75-99) mg/dL Total Protein 5.1 L (6.3-8.2) g/dL Albumin 3.2 L (3.5-5.0) g/dL Assessment and Plan Assessment: Impression: #1 Severe triple-vessel coronary artery disease status post coronary artery bypass grafting utilizing the ADDISON to the LAD, reverse saphenous vein graft to the diagonal, and posterior descending artery. Postoperative day #3. #2 Right lower extremity tingling, numbness, weakness, foot drop #3 Hyperlipidemia. #4 Previous myocardial infarction with ischemic cardiomyopathy and ejection fraction of 30-35% preoperatively. Limited echocardiogram performed today reveals continued severely impaired left ventricular systolic function with ejection fractions between 25-30%. There is global hypokinesia with large apical aneurysm. No pericardial effusion. #5 Degenerative joint disease. #6 Mild to moderate chronic obstructive pulmonary disease with FEV1 value of 74 % of predicted. Plan: The patient was seen and evaluated by Dr. Castellanos. He is doing very well from the pulmonary standpoint. He is again encouraged regarding the use of the incentive spirometer. Continue bronchodilators. We will continue to increase his activity as tolerated. We will continue to follow and make further recommendations based on his clinical status. I, the cosigning physician, performed a history & physical examination of the patient. Lungs sounds are faint crackles in the bilateral posterior bases. Maintaining good O2 saturations in the 90s on room air. I discussed the assessment and plan of care with my nurse practitioner, Celeste Torrez. I attest to the above note as dictated by her.
[2017-11-16 17:01] LABS: Glucose,Whole Blood 136 mg/dL (75-99)
[2017-11-16 21:02] LABS: Glucose,Whole Blood 120 mg/dL (75-99)
[2017-11-16] MEDS: SENNOSIDES-DOCUSATE SODIUM 1 EACH TAB PO SCH (21:14)
[2017-11-17] MEDS: HYDROcodone/APAP 5-325MG 1 EACH TAB PO PRN ×6 (01:55→21:48)
[2017-11-17 02:02] LABS: Glucose,Whole Blood 118 mg/dL (75-99)
[2017-11-17 06:01] LABS: Glucose,Whole Blood 107 mg/dL (75-99)
[2017-11-17 06:15] LABS: Basophils % (A) 0 %; Eosinophils # (A) 0.2 k/uL (0-0.7); Eosinophils % (A) 3 %; HCT 30.5 % (39.0-53.0); HGB 10.2 gm/dL (13.0-17.5); Lymphocytes # (A) 1.6 k/uL (1.0-4.8); Lymphocytes % (A) 23 %; MCH 31.1 pg (25.0-35.0); MCHC 33.5 g/dL (31.0-37.0); Mean Platelet Volume 7.9; Monocytes # (A) 0.9 k/uL (0-1.0); Monocytes % (A) 13 %; Neutrophils % (A) 58 %; Platelet Count 170 k/uL (150-450); RBC 3.28 m/uL (4.30-5.90); WBC 6.9 k/uL (3.8-10.6)
[2017-11-17 06:27] LABS: ALT 31 U/L (21-72); AST 32 U/L (17-59); Albumin 3.5 g/dL (3.5-5.0); Alkaline Phosphatase 47 U/L (38-126); Anion Gap 9 mmol/L; Blood Urea Nitrogen 21 mg/dL (9-20); Calcium 8.7 mg/dL (8.4-10.2); Carbon Dioxide 28 mmol/L (22-30); Chloride 104 mmol/L (98-107); Glucose 97 mg/dL (74-99); Potassium 4.2 mmol/L (3.5-5.1); Sodium 141 mmol/L (137-145); Total Bilirubin 0.6 mg/dL (0.2-1.3); Total Protein 5.3 g/dL (6.3-8.2)
[2017-11-17] MEDS: INSULIN ASPART 100 UNIT/ML 1 ML 10 ML VIAL SQ SCH ×4 (06:35→21:13)
[2017-11-17] MEDS: PANTOPRAZOLE 40 MG TABLET PO SCH (06:35)
[2017-11-17] MEDS: ATORVASTATIN 40 MG TAB PO SCH (08:15)
[2017-11-17] MEDS: METOPROLOL TARTRATE 50 MG TAB PO SCH ×2 (08:15→21:13)
[2017-11-17] MEDS: CLOPIDOGREL 75 MG TAB PO SCH (08:15)
[2017-11-17] MEDS: ASPIRIN 325 MG TAB PO SCH (08:15)
[2017-11-17] MEDS: HEPARIN SODIUM,PORCINE 5,000 UNIT/ML 1 ML VIAL SQ SCH ×3 (08:15→23:31)
[2017-11-17] MEDS: IPRATROPIUM-ALBUTEROL 3 ML NEB INHALATION SCH ×4 (09:00→19:57)
--- NOTE | 2017-11-17 10:23 | P.PN ---
Subjective Progress Note Date: 11/17/17 Principal diagnosis: Symptomatic multivessel coronary artery disease, history of recurrent dizzy spells, ischemic cardiomyopathy with an ejection fraction of 30-35%, moderate LV dysfunction with akinesis in the inferior wall and posterior wall and apex, preventricular contractions, current long-standing history of tobacco dependence , hyperlipidemia, strong family history of coronary artery disease and need for bypass surgery, his sister was diagnosed with coronary artery disease at age 58 , history of COPD with a preoperative FEV1 of 72% of predicted and osteoarthritis. POD #4 triple-vessel coronary artery bypass grafting using the left internal mammary artery to the distal left anterior descending coronary artery, a reverse greater saphenous vein graft from the aorta to the diagonal coronary artery, a reverse greater saphenous vein graft from the aorta to the posterior descending coronary artery. Endoscopic harvesting of the left greater saphenous vein, intraoperative transesophageal echocardiogram, epi-aortic scanning and intraoperative graft flow measurement using the [employer] system. The patient is sitting up to the bedside chair. He is in no acute distress. Denies any complaints of pain or shortness of breath at this time. He remains complaining of right foot numbness with sitting. He ambulated in the [address] [place] [address] this a.m. with minimal assistance, continues to have some right leg and foot weakness with foot drop to his right foot. Oxygen saturation is 96% on 2 L nasal cannula. He is achieving 1500 mL on his incentive spirometry. Objective - Vital Signs Vital signs: Vital Signs Temp 97.3 F L 11/17/17 07:55 Pulse 80 11/17/17 09:09 Resp 16 11/17/17 07:55 BP 114/56 11/17/17 07:55 Pulse Ox 92 L 11/17/17 09:01 Intake & Output 11/16/17 11/17/17 11/17/17 18:59 06:59 18:59 Intake Total 720 120 Output Total 300 350 Balance 420 -350 120 Weight 86.5 kg Intake: Oral 720 120 Output: Urine 300 350 Other: Voiding Method Urinal Urinal Urinal # Voids 1 # Bowel Movements 0 ABP, PAP, CO, CI - Last Documented Arterial Blood Pressure 121/58 Pulmonary Artery Pressure 21/10 Cardiac Output 10.1 Cardiac Index 6.1 - Constitutional General appearance: Present: cooperative, no acute distress - Respiratory Details: Lung sounds are essentially clear throughout, few scattered crackles to his bilateral bases. Respirations are symmetrical and nonlabored. Oxygen saturation are 96% on 2 L nasal cannula. He is achieving 1500 mL on his incentive spirometry. - Cardiovascular Details: Regular rhythm and rate. S1 and S2 present, need for S3, gallop or murmur. Remote telemetry showing normal sinus rhythm heart rate 93. Sternum is stable. Heart hugger is in place and he is demonstrating appropriate use. Knee-high JARRELL hose and sequential compression devices in place to his bilateral lower extremities. Atrial and ventricular epicardial pacemaker wires in place and grounded. No edema present. - Gastrointestinal Gastrointestinal Comment(s): Abdomen is soft, nontender nondistended. Active bowel sounds all 4 abdominal quadrants. Tolerating oral intake. - Genitourinary Genitourinary Comment(s): Voiding clear yellow urine. - Integumentary Integumentary Comment(s): Skin is warm and dry. No clubbing or cyanosis present. Midline sternal incision clean dry and approximated. No drainage or redness present. Left leg EVH site clean dry and approximated. No drainage or redness present. Dermabond dressing clean and dry - Neurologic Neurologic: Present: CNII-XII intact - Musculoskeletal Musculoskeletal: Present: right sided weakness (To his right lower extremity and right foot.) - Psychiatric Psychiatric: Present: A&O x's 3, appropriate affect, intact judgment & insight - Allied health notes Allied health notes reviewed: nursing - Labs CBC & Chem 7: 11/17/17 05:41 11/17/17 05:41 Labs: Abnormal Lab Results - Last 24 Hours (Table) 11/16/17 11/16/17 11/16/17 Range/Units 11:56 16:56 20:54 RBC (4.30-5.90) m/uL Hgb (13.0-17.5) gm/dL Hct (39.0-53.0) % BUN (9-20) mg/dL POC Glucose (mg/dL) 122 H 136 H 120 H (75-99) mg/dL Total Protein (6.3-8.2) g/dL 11/17/17 11/17/17 11/17/17 Range/Units 01:58 05:41 05:41 RBC 3.28 L (4.30-5.90) m/uL Hgb 10.2 L (13.0-17.5) gm/dL Hct 30.5 L (39.0-53.0) % BUN 21 H (9-20) mg/dL POC Glucose (mg/dL) 118 H (75-99) mg/dL Total Protein 5.3 L (6.3-8.2) g/dL 11/17/17 Range/Units 05:57 RBC (4.30-5.90) m/uL Hgb (13.0-17.5) gm/dL Hct (39.0-53.0) % BUN (9-20) mg/dL POC Glucose (mg/dL) 107 H (75-99) mg/dL Total Protein (6.3-8.2) g/dL Assessment and Plan (1) Coronary artery disease Current Visit: Yes Status: Chronic Code(s): I25.10 - ATHSCL HEART DISEASE OF [place] CORONARY ARTERY W/O ANG PCTRS SNOMED Code(s): 24815535 (2) Episode of dizziness Current Visit: Yes Status: Acute Code(s): R42 - DIZZINESS AND GIDDINESS SNOMED Code(s): 772976971 (3) Hyperlipidemia Current Visit: Yes Status: Acute Code(s): E78.5 - HYPERLIPIDEMIA, UNSPECIFIED SNOMED Code(s): 30112846 (4) Osteoarthritis Current Visit: Yes Status: Acute Code(s): M19.90 - UNSPECIFIED OSTEOARTHRITIS, UNSPECIFIED SITE SNOMED Code(s): 761344602 (5) Nicotine dependence Current Visit: Yes Status: Acute Code(s): F17.200 - NICOTINE DEPENDENCE, UNSPECIFIED, UNCOMPLICATED SNOMED Code(s): 32447962 (6) Ischemic cardiomyopathy Current Visit: Yes Status: Acute Code(s): I25.5 - ISCHEMIC CARDIOMYOPATHY SNOMED Code(s): 458884844 (7) Family history of coronary artery disease Current Visit: Yes Status: Acute Code(s): Z82.49 - FAMILY HX OF ISCHEM HEART DIS AND OTH DIS OF THE CIRC SYS SNOMED Code(s): 213461124 (8) COPD (chronic obstructive pulmonary disease) Current Visit: Yes Status: Acute Code(s): J44.9 - CHRONIC OBSTRUCTIVE PULMONARY DISEASE, UNSPECIFIED SNOMED Code(s): 47706443 Plan: 1. Continue aspirin, statin, Plavix, subcu heparin and beta héctor. We will increase his metoprolol tartrate as tolerated. 2. Pulmonary recommendations per Dr. Castellanos. Wean oxygen as tolerated to keep oxygen saturations greater than 92%. 3. Encourage use of his incentive spirometry every hour while awake. 4. Monitor daily labs and chest x-rays. 5. GI and DVT prophylaxis. 6. Limited 2-D echocardiogram demonstrated an ejection fraction of 25-30%. An order will be placed for a LifeVest when ready for discharge. 7. Increase activity as tolerated, PT/OT and cardiac rehab following. 8. Importance of smoking cessation discussed with the patient. 9. No diuresis today. 10. We will remove his epicardial pacemaker wires on tomorrow 11/18/2017. 11. We will consult Dr. Mahoney for possible inpatient rehab placement. 12. More recommendations to follow based on his clinical course. Anticipate discharge within the next 24 hours. Time with Patient: Greater than 30
--- NOTE | 2017-11-17 11:51 | P.PN ---
Subjective Progress Note Date: 11/17/17 This is a 57-year-old gentleman who is status post aorto coronary bypass surgery. Patient also had a previous SD and cardiomyopathy. 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 Patient is going to have a LifeVest. Patient is also complaining of cough with sputum production. In view of his of severely impaired LV function, there may be an element of CHF. I'm going to add small dose of Lasix along with Aldactone and also lisinopril. He increase activity as tolerated. There is possibility that he may go for inpatient rehabilitation. Objective - Vital Signs Vital signs: Vital Signs Temp 97.3 F L 11/17/17 07:55 Pulse 76 11/17/17 11:30 Resp 18 11/17/17 11:30 BP 98/58 11/17/17 11:30 Pulse Ox 91 L 11/17/17 11:30 Intake & Output 11/16/17 11/17/17 11/17/17 18:59 06:59 18:59 Intake Total 720 120 Output Total 300 350 Balance 420 -350 120 Weight 86.5 kg Intake: Oral 720 120 Output: Urine 300 350 Other: Voiding Method Urinal Urinal Urinal # Voids 1 # Bowel Movements 0 ABP, PAP, CO, CI - Last Documented Arterial Blood Pressure 121/58 Pulmonary Artery Pressure 21/10 Cardiac Output 10.1 Cardiac Index 6.1 - Exam GENERAL EXAM: Patient is alert and oriented and doesn't appear to be in any acute distress HEENT: Normocephalic. Normal reaction of pupils, equal size, normal range of extraocular motion. No erythema or exudates in the throat. NECK: No masses, no nuchal rigidity. CHEST: Postsurgical LUNGS: Equal air entry with no crackles or wheeze. HEART: S1 and S2 normal with no audible mumurs or gallops. Regular rhythm, femorals equal on both sides.. ABDOMEN: No hepatosplenomegaly, normal bowel sounds, no guarding or rigidity. SKIN: No rashes CENTRAL NERVOUS SYSTEM: No focal deficits. EXTREMITIES: No cyanosis, clubbing or edema. - Labs CBC & Chem 7: 11/17/17 05:41 11/17/17 05:41 Labs: Abnormal Lab Results - Last 24 Hours (Table) 11/16/17 11/16/17 11/16/17 Range/Units 11:56 16:56 20:54 RBC (4.30-5.90) m/uL Hgb (13.0-17.5) gm/dL Hct (39.0-53.0) % BUN (9-20) mg/dL POC Glucose (mg/dL) 122 H 136 H 120 H (75-99) mg/dL Total Protein (6.3-8.2) g/dL 11/17/17 11/17/17 11/17/17 Range/Units 01:58 05:41 05:41 RBC 3.28 L (4.30-5.90) m/uL Hgb 10.2 L (13.0-17.5) gm/dL Hct 30.5 L (39.0-53.0) % BUN 21 H (9-20) mg/dL POC Glucose (mg/dL) 118 H (75-99) mg/dL Total Protein 5.3 L (6.3-8.2) g/dL 11/17/17 Range/Units 05:57 RBC (4.30-5.90) m/uL Hgb (13.0-17.5) gm/dL Hct (39.0-53.0) % BUN (9-20) mg/dL POC Glucose (mg/dL) 107 H (75-99) mg/dL Total Protein (6.3-8.2) g/dL Assessment and Plan (1) Hx of CABG Current Visit: Yes Status: Acute Code(s): Z95.1 - PRESENCE OF AORTOCORONARY BYPASS GRAFT SNOMED Code(s): 762510233 (2) COPD (chronic obstructive pulmonary disease) Current Visit: Yes Status: Acute Code(s): J44.9 - CHRONIC OBSTRUCTIVE PULMONARY DISEASE, UNSPECIFIED SNOMED Code(s): 78817993 (3) Hyperlipidemia Current Visit: Yes Status: Acute Code(s): E78.5 - HYPERLIPIDEMIA, UNSPECIFIED SNOMED Code(s): 38391561 (4) Ischemic cardiomyopathy Current Visit: Yes Status: Acute Code(s): I25.5 - ISCHEMIC CARDIOMYOPATHY SNOMED Code(s): 138595699 Plan: Will add small dose of lisinopril, Lasix and Aldactone and increase the doses as tolerated. Possible discharge after LifeVest arrangements on Saturday.
--- NOTE | 2017-11-17 11:54 | P.PN ---
Subjective Patient is a status post CABG, he was lying with bit with no acute distress, no chest pain, no dyspnea Vitas looks stable, hemoglobin is 10.3 which is a stable , no leukocytosis with mild thrombocytopenia at 127, creatinine 0.9, repeat chest x-ray from today shows mild cardiomegaly small bilateral pleural effusion , left basilar airway disease After the surgery patient was complaining of from right ankle numbness, no difficulty walking, no specific weakness, no blurred vision, no difficulty in speech, no headache Objective - Vital Signs Vital signs: Vital Signs Temp 97.3 F L 11/17/17 07:55 Pulse 76 11/17/17 11:30 Resp 18 11/17/17 11:30 BP 98/58 11/17/17 11:30 Pulse Ox 91 L 11/17/17 11:30 Intake & Output 11/16/17 11/17/17 11/17/17 18:59 06:59 18:59 Intake Total 720 120 Output Total 300 350 Balance 420 -350 120 Weight 86.5 kg Intake: Oral 720 120 Output: Urine 300 350 Other: Voiding Method Urinal Urinal Urinal # Voids 1 # Bowel Movements 0 ABP, PAP, CO, CI - Last Documented Arterial Blood Pressure 121/58 Pulmonary Artery Pressure 21/10 Cardiac Output 10.1 Cardiac Index 6.1 - Exam Constitutional: No acute distress, conversant, pleasant Eyes: Anicteric sclerae, moist conjunctiva, no lid-lag PERRLA ENMT: NC/AT Oropharynx clear, no erythema, exudates Neck: Supple, FROM, no masses, or JVD No carotid bruits No thyromegaly Lungs: Clear to auscultation Clear to percussion Normal respiratory effort, no accessory muscle use Cardiovascular: Heart regular in rate and rhythm, No murmurs, gallops, or rubs No peripheral edema Abdominal: Soft Nontender, no guarding, rebound or rigidity Abdomen moving with respiration Normoactive bowel sounds No palpable mass No abdominal wall hernia noted Skin: Normal temperature, tone, texture, turgor No induration No subcutaneous nodules No rash, lesions No ulcers Extremities: No digital cyanosis No clubbing Pedal pulses intact and symmetrical Radial pulses intact and symmetrical Normal gait and station No calf tenderness Psychiatric: Alert and oriented to person, place and time Appropriate affect Intact judgement Neuro: Muscles Strength 5/5 in all 4 extremities, right foot drop Sensation to light touch grossly present throughout Cranial nerves II-XII grossly intact No focal sensory deficits - Labs CBC & Chem 7: 11/17/17 05:41 11/17/17 05:41 Labs: Abnormal Lab Results - Last 24 Hours (Table) 11/16/17 11/16/17 11/16/17 Range/Units 11:56 16:56 20:54 RBC (4.30-5.90) m/uL Hgb (13.0-17.5) gm/dL Hct (39.0-53.0) % BUN (9-20) mg/dL POC Glucose (mg/dL) 122 H 136 H 120 H (75-99) mg/dL Total Protein (6.3-8.2) g/dL 11/17/17 11/17/17 11/17/17 Range/Units 01:58 05:41 05:41 RBC 3.28 L (4.30-5.90) m/uL Hgb 10.2 L (13.0-17.5) gm/dL Hct 30.5 L (39.0-53.0) % BUN 21 H (9-20) mg/dL POC Glucose (mg/dL) 118 H (75-99) mg/dL Total Protein 5.3 L (6.3-8.2) g/dL 11/17/17 Range/Units 05:57 RBC (4.30-5.90) m/uL Hgb (13.0-17.5) gm/dL Hct (39.0-53.0) % BUN (9-20) mg/dL POC Glucose (mg/dL) 107 H (75-99) mg/dL Total Protein (6.3-8.2) g/dL Assessment and Plan Assessment: Triple-vessel coronary artery disease. Status post CABG Ischemic cardiomyopathy ejection fraction 30-35% with inferior wall akinesis Exertional short of breath and dizziness Family history of coronary disease right foot numbness with foot drop after CABG Nicotine addiction Hyperlipidemia Osteoarthritis Possible underlying COPD with long-standing history of smoking DVT prophylaxis Plan: This is a 57 years old male with triple-vessel disease, S/p CABG, he tolerated the procedure well he was lying in bed with no difficulties with anticipated discharge in 24-hours as per cardiothoracic surgery primary team, pulmonary evaluation is also appreciated,Continue the use of incentive spirometer., Continue with aspirin and Plavix, and statin, patient is complaining of from new right ankle numbness with with the drops new after CABG, neurological evaluation is appreciated, this could be radiculopathy or positional irritation during CABG and they recommended follow-up with the neurosurgeon as an outpatient and with electrophysiological testing outpatient setting, continue with DVT and GI prophylaxis I recommended patient may follow up with his primary care doctor in 1 week after discharge, discussed with patient
[2017-11-17 12:16] LABS: Glucose,Whole Blood 119 mg/dL (75-99)
--- NOTE | 2017-11-17 12:33 | P.PN ---
Subjective Progress Note Date: 11/17/17 On 11/13 2017 I'm seeing this patient immediately after he arrived from the operating room. The patient is currently sedated, intubated on a mechanical ventilator. He is on 10 mics of propofol infusion. He is on assist control mode at the rate of 10 initially which I bumped it up to 20 , and addition to her tidal volume 600, FiO2 of 60% and a PEEP of 5. The chest x-ray showed adequate expansion of both lungs. No pneumothorax. ET tube is in a good location. The patient has a mediastinal and left pleural chest tube and the right IJ Maynard-Paulo catheter in place. The patient had a blood gas that showed a pH of 7.34 with a pCO2 of 50 and pO2 of 295 and this was on FiO2 of 100%. Postoperative hemoglobin is at 10.6. Hemodynamically, he has an adequate cardiac index, PA pressures 30/17, CVP is at 12. The output from the left pleural chest tube is 85 mL and a mediastinal chest tube is 45 mL since the patient arrived from the operating room. His current temperature is 97.7 and his only a few mics of norepinephrine infusion for blood pressure control. He is also on nitroglycerin drip per protocol. Cardiac rhythm is sinus. The patient has a backup pacemaker generator the rate of 50, VVI. On 11/14/2017, the patient is extubated and the patient is ambulating in the hallway. He has done extremely well and within a few hours after arriving to the intensive care unit the patient was extubated to nasal cannula. He remained hemodynamically stable and did not require any pressors or any other interventions. Cardiac rhythm is sinus. Chest tubes are in place. Output is around 280 MO's in 8 hours and a 50 MO since surgery and the mediastinal chest tube and 145 mL in 8 hours and to 50 mL since surgery in the left pleural chest tube. No evidence of any air leak. The patient is pulling approximately thousand on the incentive spirometer. Chest x-ray showed full expansion of both lungs without any pneumothorax. There is some increase atelectatic changes in lung bases and mild component of pulmonary vessel congestion. Currently on 2 L of oxygen nasal cannula with a pulse ox of 96%. The cardiac output as of 5.4. Index is at 2.6. PA pressures around 24/12. Surgical wound sites are clean. Pain scale is around 3 out of 10 in severity. On 11/15/2017 the patient remains hemodynamically stable. Output from the mediastinal tube is minimal and this will be removed. Patient has also left pleural chest tube in place. The patient is on no pressors. The patient is producing adequate amount of urine output. Earlier he developed some hypotension and he was given a dose of albumin. Otherwise no fever. No chills. No nausea. No vomiting. No cardiac arrhythmias and the patient rhythm remains sinus. Patient is able to sit up on a chair. He is having some numbness in his right lower extremity which is also improving. On 11/16/2017, the patient is ambulating in the right foot weakness is improving gradually. No respiratory difficulties. No cough sputum production. No cardiac arrhythmias. Sternum stable clean and intact. Chest tubes have been removed. Hemoglobin stable at 10.2. The renal Function stable with a creatinine of 0.9. No other significant events overnight and were looking for possible discharge in a.m. Objective - Vital Signs Vital signs: Vital Signs Temp 97.3 F L 11/17/17 07:55 Pulse 76 11/17/17 12:24 Resp 18 11/17/17 11:30 BP 98/58 11/17/17 11:30 Pulse Ox 91 L 11/17/17 11:30 Intake & Output 11/16/17 11/17/17 11/17/17 18:59 06:59 18:59 Intake Total 720 120 Output Total 300 350 400 Balance 420 -350 -280 Weight 86.5 kg Intake: Oral 720 120 Output: Urine 300 350 400 Other: Voiding Method Urinal Urinal Urinal # Voids 1 # Bowel Movements 0 ABP, PAP, CO, CI - Last Documented Arterial Blood Pressure 121/58 Pulmonary Artery Pressure 21/10 Cardiac Output 10.1 Cardiac Index 6.1 - Exam Gen. appearance the patient is calm, likely distress. Ambulating. Head exam was generally normal. There was no scleral icterus or corneal arcus. Mucous membranes were moist. Neck was supple and without jugular venous distension, thyromegaly, or carotid bruits. Carotids were easily palpable bilaterally. There was no adenopathy. The patient has a right Cordis. Lungs were clear to auscultation and percussion, and with normal diaphragmatic excursion. No wheezes or rales were noted. Breath sounds are diminished in lung bases and the sternum stable clean and intact. Chest tubes are all in place. Cardiac exam revealed the PMI to be normally situated and sized. The rhythm was regular and no extrasystoles were noted during several minutes of auscultation. The first and second heart sounds were normal and physiologic splitting of the second heart sound was noted. There were no murmurs, rubs, clicks, or gallops. Abdominal exam revealed normal bowel sounds. The abdomen was soft, non-tender, and without masses, organomegaly, or appreciable enlargement of the abdominal aorta. Examination of the extremities revealed easily palpable radial, femoral and pedal pulses. There was no cyanosis, clubbing or edema. Examination of the skin revealed no evidence of significant rashes, suspicious appearing nevi or other concerning lesions. Neurologically the patient awake and alert and there is no focal neurological deficits. - Labs CBC & Chem 7: 11/17/17 05:41 11/17/17 05:41 Labs: Abnormal Lab Results - Last 24 Hours (Table) 11/16/17 11/16/17 11/17/17 Range/Units 16:56 20:54 01:58 RBC (4.30-5.90) m/uL Hgb (13.0-17.5) gm/dL Hct (39.0-53.0) % BUN (9-20) mg/dL POC Glucose (mg/dL) 136 H 120 H 118 H (75-99) mg/dL Total Protein (6.3-8.2) g/dL 11/17/17 11/17/17 11/17/17 Range/Units 05:41 05:41 05:57 RBC 3.28 L (4.30-5.90) m/uL Hgb 10.2 L (13.0-17.5) gm/dL Hct 30.5 L (39.0-53.0) % BUN 21 H (9-20) mg/dL POC Glucose (mg/dL) 107 H (75-99) mg/dL Total Protein 5.3 L (6.3-8.2) g/dL 11/17/17 Range/Units 12:10 RBC (4.30-5.90) m/uL Hgb (13.0-17.5) gm/dL Hct (39.0-53.0) % BUN (9-20) mg/dL POC Glucose (mg/dL) 119 H (75-99) mg/dL Total Protein (6.3-8.2) g/dL Assessment and Plan Plan: Assessment 1 multivessel coronary artery disease status post triple-vessel bypass surgery. Patient is postop day #3. The patient is recovering extremely well and all of the chest tubes removed and the patient is currently on room air. 2 post thoracotomy 3 ischemic cardiomyopathy with an ejection fraction of 30-35% 4 COPD mild at baseline 5 hyperlipidemia 6 right foot drop, possibly related to nerve injury to the right foot. Plan Continue the use of incentive spirometer. Coverage activity as tolerated. Physical therapy regarding the right foot. Overall pulmonary status and cardiac status is stable. Repeat echo was done yesterday and the ejection fraction remains poor with an EF of 25-30%. No pericardial effusion. Cardiology is on the case and the patient is currently on a combination of aspirin, Plavix, metoprolol. Consider the addition of an JEFF inhibitor also.
[2017-11-17 17:13] LABS: Glucose,Whole Blood 105 mg/dL (75-99)
[2017-11-17 20:45] LABS: Glucose,Whole Blood 110 mg/dL (75-99)
[2017-11-17] MEDS: SENNOSIDES-DOCUSATE SODIUM 1 EACH TAB PO SCH (21:12)
[2017-11-18] MEDS: HYDROcodone/APAP 5-325MG 1 EACH TAB PO PRN ×4 (01:49→15:43)
[2017-11-18 02:14] VITALS: RESP 18
[2017-11-18 02:30] LABS: Glucose,Whole Blood 98 mg/dL (75-99)
--- NOTE | 2017-11-18 06:09 | P.CONS ---
History of Present Illness - Chief Complaint Medical debility - History of Present Illness I had the opportunity to see patient for inpatient rehab consultation with regard to medical debility. He was admitted November 09 with triple-vessel disease. Underwent three-vessel coronary bypass. Seen in ICU by Dr. Baez. Chest x-ray demonstrates mild cardiomegaly, mild pleural effusions in left base disease. PT and OT prescribed. Previous functional history as elicited from patient: 57-year-old right-handed white male who is lives in one floor home with . We'll be applying for disability. Describes independent with cooking, laundry, driving, standing shower and occasional needle standard cane. Dr. Holman is regular doctor. History smoking but doesn't smoke or drink currently. Family history of mother with cardiac disease. Review of Systems Review of systems: ENT: Denies sneezes or discharge. Eyes: Denies discharge or photophobia. Cardiac: Denies chest pain or palpitation. Mild sternal discomfort. Pulmonary: Mild shortness of breath. Gastrointestinal: Denies nausea, emesis, constipation, diarrhea. Genitourinary: Denies discharge or frequency. Musculoskeletal: Denies muscle or bone aches. Neurologic: Denies motor or sensory change. Endocrine: Denies shakes or sweats. Oncology: Denies cancers. Dermatologic: Denies rash, itching, pruritus. ALLERGY/immunology: Denies sneezes, rashes. Past Medical History Past Medical History: Coronary Artery Disease (CAD), COPD, Hyperlipidemia, Neurologic Disorder, Osteoarthritis (OA), Pneumonia Additional Past Medical History / Comment(s): 2 episodes 04/2017 and 06/2017- not sure if stroke or NM-possible NM x 2, ischemic cardiomyopathy, ejection fraction 30-35%. History of Any Multi-Drug Resistant Organisms: None Reported Past Surgical History: Back Surgery, Orthopedic Surgery Additional Past Surgical History / Comment(s): arthroscopy rt knee Past Anesthesia/Blood Transfusion Reactions: No Reported Reaction Past Psychological History: No Psychological Hx Reported Smoking Status: Current every day smoker Past Alcohol Use History: Rare Additional Past Alcohol Use History / Comment(s): down to 4 cigarettes daily, for 40 yrs Past Drug Use History: None Reported - Past Family History Mother Family Medical History: Cancer Medications and Allergies Home Medications Medication Instructions Recorded Confirmed Type Albuterol Nebulized [Ventolin 2.5 mg INHALATION RT-TID PRN 11/05/17 11/09/17 History Nebulized] Aspirin [Adult Low Dose Aspirin EC] 81 mg PO DAILY 11/05/17 11/09/17 History Atorvastatin [Lipitor] 40 mg PO W/SUPPER 11/05/17 11/09/17 History Naproxen Sodium [Aleve] 440 mg PO Q12HR 11/05/17 11/09/17 History Isosorbide Mononitrate [Isosorbide 15 mg PO DAILY@1200 11/06/17 11/09/17 History Mononitrate ER] Metoprolol Succinate [Toprol XL] 25 mg PO DAILY 11/06/17 11/09/17 History traMADol HCL [Ultram] 50 mg PO BID PRN 11/06/17 11/09/17 History Lisinopril [Zestril] 2.5 mg PO DAILY #90 tab 11/08/17 Rx Allergies Allergy/AdvReac Type Severity Reaction Status Date / Time terbinafine [From Lamisil] AdvReac Rash/Hives Verified 11/13/17 06:24 Physical Exam Vitals: Vital Signs Temp Pulse Pulse Resp BP Pulse Ox 11/18/17 04:00 98.3 F 81 18 105/65 92 L 11/18/17 00:00 97.8 F 80 18 111/71 92 L 11/17/17 20:08 88 11/17/17 20:00 98.1 F 78 16 113/71 93 L 11/17/17 19:57 89 93 L 11/17/17 16:40 98 F 87 16 122/73 93 L 11/17/17 16:28 82 11/17/17 16:18 80 11/17/17 12:24 76 11/17/17 12:16 72 11/17/17 11:30 76 18 98/58 91 L 11/17/17 10:00 16 90 L 11/17/17 09:09 80 11/17/17 09:01 76 92 L 11/17/17 07:55 97.3 F L 68 16 114/56 90 L Intake and Output 11/17/17 11/17/17 11/18/17 14:59 22:59 06:59 Intake Total 120 120 Output Total 400 300 500 Balance -280 -180 -500 Intake: Oral 120 120 Output: Urine 400 300 500 Other: Voiding Method Urinal Urinal Urinal # Voids 1 1 # Bowel Movements 0 Weight 87.3 kg Skin: Good color, texture, turgor. General: Medium build and comfortable appearance. Head: Normocephalic, atraumatic. Eyes: Symmetric. Pupils equal round. Ears: Symmetric. Hearing within normal limits. Mouth: Clear. Neck: Supple. Carotid without bruit. Cardiac: Regular rate and rhythm. Lungs: Clear anteriorly and posteriorly. Abdomen: Soft active nontender. Extremities: Normal tone. Neurological: Mental status: Alert, cooperative, pleasant. Cranial nerves: Symmetric facial tone and trapezius. Motor: Normal strength and isolation all 4 limbs. Sensation: Intact throughout. DTRs: Symmetric and equal throughout. Mobility: Sits with minimal assistance. Results CBC & Chem 7: 11/17/17 05:41 11/17/17 17:46 Labs: Abnormal Lab Results - Last 24 Hours (Table) 11/17/17 11/17/17 11/17/17 Range/Units 05:41 05:41 12:10 RBC 3.28 L (4.30-5.90) m/uL Hgb 10.2 L (13.0-17.5) gm/dL Hct 30.5 L (39.0-53.0) % BUN 21 H (9-20) mg/dL POC Glucose (mg/dL) 119 H (75-99) mg/dL Total Protein 5.3 L (6.3-8.2) g/dL 11/17/17 11/17/17 Range/Units 16:52 20:43 RBC (4.30-5.90) m/uL Hgb (13.0-17.5) gm/dL Hct (39.0-53.0) % BUN (9-20) mg/dL POC Glucose (mg/dL) 105 H 110 H (75-99) mg/dL Total Protein (6.3-8.2) g/dL Chest x-ray: report reviewed (Chest x-rays followed for mild cardiomegaly, mild effusions and left base disease.) Assessment and Plan (1) Ischemic cardiomyopathy Current Visit: Yes Status: Acute Code(s): I25.5 - ISCHEMIC CARDIOMYOPATHY SNOMED Code(s): 698854877 Plan: Impression: 1. Cardiac debility. 2. Status post three-vessel coronary bypass. 3. Coronary disease. 4. COPD. 5. Osteoarthritis. 6. Neurologic disease. 7. Dyslipidemia. comments and plan: At this time PT and OT prescribed. Follow therapies with yourself.
[2017-11-18 06:27] LABS: Glucose,Whole Blood 118 mg/dL (75-99)
[2017-11-18] MEDS: INSULIN ASPART 100 UNIT/ML 1 ML 10 ML VIAL SQ SCH ×4 (06:33→16:47)
[2017-11-18] MEDS: PANTOPRAZOLE 40 MG TABLET PO SCH (06:34)
[2017-11-18] MEDS: IPRATROPIUM-ALBUTEROL 3 ML NEB INHALATION SCH ×3 (08:28→16:17)
[2017-11-18] MEDS: METOPROLOL TARTRATE 50 MG TAB PO SCH (08:49)
[2017-11-18] MEDS: CLOPIDOGREL 75 MG TAB PO SCH (08:49)
[2017-11-18] MEDS: ASPIRIN 325 MG TAB PO SCH (08:49)
[2017-11-18] MEDS: HEPARIN SODIUM,PORCINE 5,000 UNIT/ML 1 ML VIAL SQ SCH ×2 (08:49→15:06)
[2017-11-18] MEDS: ATORVASTATIN 40 MG TAB PO SCH (08:49)
[2017-11-18] MEDS ORDERED: SPIRONOLACTONE 25 MG TAB PO SCH (09:00)
--- NOTE | 2017-11-18 09:55 | P.PN ---
Subjective Progress Note Date: 11/18/17 Principal diagnosis: Symptomatic triple-vessel coronary artery disease, totally occluded right coronary artery and mid left anterior descending artery, ischemic cardiomyopathy with moderate to severe left ventricular dysfunction with the preoperative ejection fraction of 30-35%, postoperative ejection fraction 25-30% , syncopal episodes, multiple premature ventricular contractions, tobacco abuse with preoperative FEV1 72% of predicted, hyperlipidemia with evidence of an old mid to distal anterior apical myocardial infarction with thinning and adhesions. Family history of coronary artery disease with sister diagnosed at age 58. POD #5 urgent triple vessel coronary artery bypass grafting using the left internal mammary artery to the distal left anterior descending artery, reverse saphenous vein graft from the aorta to the diagonal artery, reverse saphenous vein graft from the aorta to the posterior descending artery. Endoscopic harvesting of the left greater saphenous vein. Intraoperative transesophageal echocardiogram and epi-aortic scanning. Intraoperative graft flow measurements using the [employer] system. Postoperative right foot drop, an unexpected but possible outcome of surgery due to possible peripheral neuropraxia. The patient's currently sitting up in the chair in no acute distress. Denies pain, shortness of breath. States he ambulated in the hallway 6 times yesterday. Does still have right foot drop but improves with ambulation. States he does not want to go to rehab, would like to go home with home RN and physical therapy. Objective - Vital Signs Vital signs: Vital Signs Temp 98.3 F 11/18/17 04:00 Pulse 84 11/18/17 08:37 Resp 18 11/18/17 04:00 BP 105/65 11/18/17 04:00 Pulse Ox 92 L 11/18/17 04:00 Intake & Output 11/17/17 11/18/17 11/18/17 18:59 06:59 18:59 Intake Total 240 360 Output Total 700 500 Balance -460 -500 360 Weight 87.3 kg Intake: Oral 240 360 Output: Urine 700 500 Other: Voiding Method Urinal Urinal # Voids 1 1 # Bowel Movements 0 ABP, PAP, CO, CI - Last Documented Arterial Blood Pressure 121/58 Pulmonary Artery Pressure 21/10 Cardiac Output 10.1 Cardiac Index 6.1 - Constitutional General appearance: Present: cooperative, no acute distress - Respiratory Details: Lungs sounds diminished bilaterally. Respirations even, nonlabored. Currently on room air with oxygen saturation 92%. Able to achieve 9415-9617 mL on his incentive spirometry. Strong productive cough with yellow sputum. - Cardiovascular Details: S1, S2 present. Regular rate and rhythm, sinus rhythm on telemetry. Sternum stable. A/V epicardial pacemaker wires present, grounded. Palpable peripheral pulses bilaterally. No edema present. No calf pain or tenderness are noted. Heart hugger in place patient demonstrating appropriate use. Antiembolism stockings, SCDs present. - Gastrointestinal Gastrointestinal Comment(s): Abdomen soft, nontender, nondistended. Active bowel sounds present 4 quadrants. Tolerating diet. Positive flatus, negative bowel movement since surgery. - Genitourinary Genitourinary Comment(s): Continues to void clear, yellow urine. - Integumentary Integumentary Comment(s): Skin is warm and dry with evidence of good perfusion. Anterior chest incision well approximated and covered with dry intact dressing. Left lower extremity EVH site well approximated. - Neurologic Neurologic: Present: CNII-XII intact - Musculoskeletal Musculoskeletal Comment(s): Bilateral lumbar per extremities with 5 out of 5 strength, left lower extremity with high-strength. Right lower extremity with trace amount of weakness, foot drop present. - Psychiatric Psychiatric: Present: A&O x's 3, appropriate affect, intact judgment & insight - Allied health notes Allied health notes reviewed: nursing - Labs CBC & Chem 7: 11/17/17 05:41 11/17/17 17:46 Labs: Abnormal Lab Results - Last 24 Hours (Table) 11/17/17 11/17/17 11/17/17 Range/Units 12:10 16:52 20:43 POC Glucose (mg/dL) 119 H 105 H 110 H (75-99) mg/dL 11/18/17 Range/Units 06:22 POC Glucose (mg/dL) 118 H (75-99) mg/dL Assessment and Plan (1) COPD (chronic obstructive pulmonary disease) Current Visit: Yes Status: Chronic Code(s): J44.9 - CHRONIC OBSTRUCTIVE PULMONARY DISEASE, UNSPECIFIED SNOMED Code(s): 49655758 (2) Family history of coronary artery disease Current Visit: Yes Status: Chronic Code(s): Z82.49 - FAMILY HX OF ISCHEM HEART DIS AND OTH DIS OF THE CIRC SYS SNOMED Code(s): 275660213 (3) Hyperlipidemia Current Visit: Yes Status: Chronic Code(s): E78.5 - HYPERLIPIDEMIA, UNSPECIFIED SNOMED Code(s): 29172488 (4) Ischemic cardiomyopathy Current Visit: Yes Status: Chronic Code(s): I25.5 - ISCHEMIC CARDIOMYOPATHY SNOMED Code(s): 203929575 (5) Nicotine dependence Current Visit: Yes Status: Chronic Code(s): F17.200 - NICOTINE DEPENDENCE, UNSPECIFIED, UNCOMPLICATED SNOMED Code(s): 71230742 (6) Numbness of right foot Current Visit: Yes Status: Acute Code(s): R20.0 - ANESTHESIA OF SKIN SNOMED Code(s): 430046936 (7) Osteoarthritis Current Visit: Yes Status: Chronic Code(s): M19.90 - UNSPECIFIED OSTEOARTHRITIS, UNSPECIFIED SITE SNOMED Code(s): 084117523 (8) Chronic low back pain Current Visit: Yes Status: Chronic Code(s): M54.5 - LOW BACK PAIN; G89.29 - OTHER CHRONIC PAIN SNOMED Code(s): 496967807 (9) Coronary artery disease Current Visit: Yes Status: Chronic Code(s): I25.10 - ATHSCL HEART DISEASE OF UTE CORONARY ARTERY W/O ANG PCTRS SNOMED Code(s): 37767294 Plan: 1. Continue aspirin, statin, Plavix, heparin subcu, beta héctor. Will increase beta héctor therapy as tolerated. 2. Will add Aldactone, low-dose JEFF inhibitor. 3. Will discontinue epicardial pacemaker wires, Pepcid bedrest 1 hour post- removal. 4. Discussed with cardiology need for life vest at discharge. 5. Encourage incentive spirometry use 10 times every hour. 6. Encourage smoking cessation. 7. GI/DVT prophylaxis. 8. Will give milk of magnesia and prune juice today. 9. Increase activity, ambulate as tolerated. PT/OT/cardiac rehab following. 10. Discharge planning in progress. Anticipate discharge to home with home care and home physical therapy later today. Time with Patient: Greater than 30
[2017-11-18 11:25] VITALS: BP 105/61; TEMP 97.3
[2017-11-18 11:30] LABS: Glucose,Whole Blood 154 mg/dL (75-99)
--- NOTE | 2017-11-18 11:57 | P.PN ---
Subjective Progress Note Date: 11/18/17 Principal diagnosis: Severe triple-vessel coronary artery disease This is a very pleasant 57-year-old gentleman who was found to have severe coronary artery disease. Cardiac catheterization revealed chronic total occlusion of the mid RCA, intermediate to severe disease in the ostial left circumflex and severe disease involving the LAD. Ejection fraction 20%. The plan is for coronary artery bypass grafting tomorrow morning. He does have a history of hyperlipidemia, degenerative joint disease, previous pneumonia, ischemic cardiomyopathy with previous myocardial infarction. Today he is awake and alert in no acute distress. He denies any further chest pain, palpitations, lightheadedness or dizziness. No shortness of breath, cough or congestion. He is pulling 2700 mL on his incentive spirometer. FEV1 value 72% of predicted. He is maintaining good O2 saturations in the high 90s on room air. He's been afebrile. Hemodynamically stable. No lab abnormalities. On 11/13 2017 I'm seeing this patient immediately after he arrived from the operating room. The patient is currently sedated, intubated on a mechanical ventilator. He is on 10 mics of propofol infusion. He is on assist control mode at the rate of 10 initially which I bumped it up to 20 , and addition to her tidal volume 600, FiO2 of 60% and a PEEP of 5. The chest x-ray showed adequate expansion of both lungs. No pneumothorax. ET tube is in a good location. The patient has a mediastinal and left pleural chest tube and the right IJ [place] catheter in place. The patient had a blood gas that showed a pH of 7.34 with a pCO2 of 50 and pO2 of 295 and this was on FiO2 of 100%. Postoperative hemoglobin is at 10.6. Hemodynamically, he has an adequate cardiac index, PA pressures 30/17, CVP is at 12. The output from the left pleural chest tube is 85 mL and a mediastinal chest tube is 45 mL since the patient arrived from the operating room. His current temperature is 97.7 and his only a few mics of norepinephrine infusion for blood pressure control. He is also on nitroglycerin drip per protocol. Cardiac rhythm is sinus. The patient has a backup pacemaker generator the rate of 50, VVI. On 11/14/2017, the patient is extubated and the patient is ambulating in the hallway. He has done extremely well and within a few hours after arriving to the intensive care unit the patient was extubated to nasal cannula. He remained hemodynamically stable and did not require any pressors or any other interventions. Cardiac rhythm is sinus. Chest tubes are in place. Output is around 280 MO's in 8 hours and a 50 MO since surgery and the mediastinal chest tube and 145 mL in 8 hours and to 50 mL since surgery in the left pleural chest tube. No evidence of any air leak. The patient is pulling approximately thousand on the incentive spirometer. Chest x-ray showed full expansion of both lungs without any pneumothorax. There is some increase atelectatic changes in lung bases and mild component of pulmonary vessel congestion. Currently on 2 L of oxygen nasal cannula with a pulse ox of 96%. The cardiac output as of 5.4. Index is at 2.6. PA pressures around 24/12. Surgical wound sites are clean. Pain scale is around 3 out of 10 in severity. On 11/15/2017 the patient remains hemodynamically stable. Output from the mediastinal tube is minimal and this will be removed. Patient has also left pleural chest tube in place. The patient is on no pressors. The patient is producing adequate amount of urine output. Earlier he developed some hypotension and he was given a dose of albumin. Otherwise no fever. No chills. No nausea. No vomiting. No cardiac arrhythmias and the patient rhythm remains sinus. Patient is able to sit up on a chair. He is having some numbness in his right lower extremity which is also improving. The patient is seen again today 11/16/2017 in follow-up on the selective care unit. He's been up ambulating in the hallway with assistance. He does continue to have some weakness of the right lower extremity and some foot drop. Otherwise he is doing quite well. He denies any worsening shortness of breath , cough or congestion. He is maintaining good O2 saturations in the low 90s on room air. He's been afebrile. Hemodynamically stable. Today's chest x-ray reveals mild cardiomegaly and small bilateral pleural effusions with some left basilar airspace disease. He is working well with the incentive spirometer and cough and deep breathing exercises. White count 8.0. Hemoglobin 10.3. Creatinine 0.90. On 11/17/2017, the patient is ambulating in the right foot weakness is improving gradually. No respiratory difficulties. No cough sputum production. No cardiac arrhythmias. Sternum stable clean and intact. Chest tubes have been removed. Hemoglobin stable at 10.2. The renal Function stable with a creatinine of 0.9. No other significant events overnight and were looking for possible discharge in a.m. Patient is seen again today 11/18/2017 in follow-up on the selective care unit. He is awake and alert in no acute distress. He's been up ambulating in the hallways without any significant shortness of breath. No cough or congestion. He is just having some issues with the right foot drop still.plan is for a orthotic boot placement. The patient will also need a LifeVest placed today and may be discharged home with home care and physical therapylater today. Objective - Vital Signs Vital signs: Vital Signs Temp 97.3 F L 11/18/17 11:24 Pulse 88 11/18/17 11:41 Resp 18 11/18/17 11:24 BP 105/61 11/18/17 11:24 Pulse Ox 95 11/18/17 11:24 Intake & Output 11/17/17 11/18/17 11/18/17 18:59 06:59 18:59 Intake Total 240 360 Output Total 700 500 Balance -460 -500 360 Weight 87.3 kg Intake: Oral 240 360 Output: Urine 700 500 Other: Voiding Method Urinal Urinal Urinal # Voids 1 1 # Bowel Movements 0 ABP, PAP, CO, CI - Last Documented Arterial Blood Pressure 121/58 Pulmonary Artery Pressure 21/10 Cardiac Output 10.1 Cardiac Index 6.1 - Exam GENERAL EXAM: Alert, active, comfortable in no apparent distress. HEAD: Normocephalic. EYES: Normal reaction of pupils, equal size. NOSE: Clear with pink turbinates. THROAT: No erythema or exudates. NECK: No masses, no JVD. CHEST: Sternum stable. LUNGS: Equal air entry with crackles in the posterior bases.. CVS: S1 and S2 normal with no audible murmur, regular rhythm. ABDOMEN: No hepatosplenomegaly, normal bowel sounds, no guarding or rigidity. SPINE: No scoliosis or deformity SKIN: No rashes CENTRAL NERVOUS SYSTEM: No focal deficits, tone is normal in all 4 extremities. EXTREMITIES: There is no peripheral edema. No clubbing, no cyanosis. Peripheral pulses are intact. Some tingling and numbness, weakness of the right lower extremity. - Labs CBC & Chem 7: 11/17/17 05:41 11/17/17 17:46 Labs: Abnormal Lab Results - Last 24 Hours (Table) 11/17/17 11/17/17 11/17/17 Range/Units 12:10 16:52 20:43 POC Glucose (mg/dL) 119 H 105 H 110 H (75-99) mg/dL 11/18/17 11/18/17 Range/Units 06:22 11:26 POC Glucose (mg/dL) 118 H 154 H (75-99) mg/dL Assessment and Plan Assessment: Impression: #1 Severe triple-vessel coronary artery disease status post coronary artery bypass grafting utilizing the ADDISON to the LAD, reverse saphenous vein graft to the diagonal, and posterior descending artery. #2 Right lower extremity tingling, numbness, weakness, foot drop #3 Hyperlipidemia. #4 Previous myocardial infarction with ischemic cardiomyopathy and ejection fraction of 30-35% preoperatively. Limited echocardiogram performed today reveals continued severely impaired left ventricular systolic function with ejection fractions between 25-30%. There is global hypokinesia with large apical aneurysm. No pericardial effusion. #5 Degenerative joint disease. #6 Mild to moderate chronic obstructive pulmonary disease with FEV1 value of 74 % of predicted. Plan: The patient was seen and evaluated by Dr. Holt. He is doing very well from the pulmonary standpoint. He is again encouraged regarding the use of the incentive spirometer. Continue bronchodilators. The plan is for discharge to home with home care later today once the boot is placed to the right foot and a LifeVest applied. He'll follow-up in our office in 1-2 weeks' time. We'll repeat a chest x-ray then. He and his are both encouraged to call sooner however with any further questions or concerns. I, the cosigning physician, performed a history & physical examination of the patient. Lungs sounds are faint crackles in the bilateral posterior bases. Maintaining good O2 saturations in the 90s on room air. I discussed the assessment and plan of care with my nurse practitioner, Celeste Torrez. I attest to the above note as dictated by her.
[2017-11-18] MEDS ORDERED: LISINOPRIL 2.5 MG TAB PO SCH (12:00)
[2017-11-18 14:13] VITALS: PULSE 75
--- NOTE | 2017-11-18 15:06 | PN ---
PROGRESS NOTE DATE OF SERVICE: 11/15/2017 This patient is status post coronary artery bypass surgery. Patient is doing fairly well. He has no respiratory distress. Denies chest pain. Medical records reviewed. Blood pressure is 114/70 mmHg, heart rate is 65 per minute, respirations are not labored. First and second heart sounds are normal. Lungs are fairly clear to auscultation and percussion. Patient's hemoglobin is 10.4, creatinine is 0.90. No arrhythmias are noted. Patient's medications are reviewed and will continue the current medications. MMODL / IJN: [id number] /
--- NOTE | 2017-11-18 15:24 | P.PN ---
Subjective Progress Note Date: 11/18/17 This is a 57-year-old gentleman who follows with Dr. García in the office. He had been experiencing intermittent symptoms of lightheadedness and atypical chest discomfort. He underwent an echocardiogram by Dr. Sampson which revealed severe cardiac myopathy with an ejection fraction of approximately 30% , for that reason he was advised to undergo cardiac catheterization. This was performed on admission here by Dr. Oseguera. Cath revealed severe triple-vessel coronary artery disease on the patient was seen in consultation by cardiothoracic surgery and will be scheduled to undergo coronary bypass grafting surgery on Saturday. Hemodynamically the patient is stable, heart rate in the high 40s to low 50s, he acutely with ambulation. No lab data performed today. Patient denies any chest discomfort, breathing is overall stable. No dizziness or lightheadedness. 11/11/2017 Patient was seen and examined this morning, doing well, denies any chest pain or difficulty in breathing. He's been up ambulating without any difficulty. Good for coronary artery bypass grafting surgery on Saturday. 11/12/2017 Patient seen and examined this morning, he's been up ambulating in the hallway most of the day today. Denies any chest pain, his breathing has been stable. Hemodynamically he is stable. Patient is scheduled to undergo coronary artery bypass grafting surgery tomorrow at 8 AM. 11/16/2017 Patient was seen and examined this morning on the telemetry unit, he is status post coronary artery bypass grafting surgery and progressing quite well. He still has some numbness and tingling in his right leg, which she states he's been having since he's been in the intensive care unit post surgery. He does feel like the leg is weak, and does have some numbness and tingling intermittently. Patient does have good pulses in his right leg. He intermittently feels numbness and tingling in 2 fingers on his right hand as well. Overall he is doing good, denies any chest pain, breathing is stable. Hemodynamically he is stable. 11/18/2017 Patient seen and examined this morning, he's been up ambulating without any difficulty. Denies any chest pain, breathing is stable. Repeat echocardiogram with Doppler study continue to show a reduced LV function. Patient may be discharged home today with a LifeVest in place. Objective - Vital Signs Vital signs: Vital Signs Temp 97.3 F L 11/18/17 11:24 Pulse 75 11/18/17 13:00 Resp 18 11/18/17 13:00 BP 105/61 11/18/17 11:24 Pulse Ox 95 11/18/17 11:24 Intake & Output 11/17/17 11/18/17 11/18/17 18:59 06:59 18:59 Intake Total 240 360 Output Total 700 500 Balance -460 -500 360 Weight 87.3 kg Intake: Oral 240 360 Output: Urine 700 500 Other: Voiding Method Urinal Urinal Urinal # Voids 1 1 # Bowel Movements 0 ABP, PAP, CO, CI - Last Documented Arterial Blood Pressure 121/58 Pulmonary Artery Pressure 21/10 Cardiac Output 10.1 Cardiac Index 6.1 - Exam PHYSICAL EXAMINATION: HEENT: Head is atraumatic, normocephalic. Pupils equal, round. Neck is supple. There is no elevated jugular venous pressure. HEART EXAMINATION: Heart S1, S2 normal. No murmur or gallop heard. CHEST EXAMINATION: Lungs are clear to auscultation and precussion. No chest wall tenderness is noted on palpation or with deep breathing. ABDOMEN: Soft, nontender. Bowel sounds are heard. No organomegaly noted. EXTREMITIES: 2+ peripheral pulses with no evidence of peripheral edema and no calf tenderness noted. NEUROLOGIC patient is awake, alert and oriented -3. . - Labs CBC & Chem 7: 11/17/17 05:41 11/17/17 17:46 Labs: Abnormal Lab Results - Last 24 Hours (Table) 11/17/17 11/17/17 11/18/17 Range/Units 16:52 20:43 06:22 POC Glucose (mg/dL) 105 H 110 H 118 H (75-99) mg/dL 11/18/17 Range/Units 11:26 POC Glucose (mg/dL) 154 H (75-99) mg/dL Assessment and Plan Plan: Assessment and Plan #1 triple-vessel coronary artery disease, status post cardiac catheterization, status post coronary artery bypass grafting surgery #2 ischemic cardiomyopathy #3 hyperlipidemia #4 COPD Plan Cardiology's perspective, patient may be able to be discharged once LifeVest is placed. Follow-up appointment will be made in the office post discharge. DNP note has been reviewed, I agree with a documented findings and plan of care. Patient was seen and examined.
--- NOTE | 2017-11-18 15:31 | P.DS ---
Providers Date of admission: 11/09/17 14:04 Expected date of discharge: 11/18/17 Attending physician: Marjorie Rucker Consults: 11/08/17 10:10 Consult Physician Routine Consulting Provider: Cardiology Jorge Consult Reason/Comments: Post Interventional patient Do you want consulting provider notified?: Already Contacted 11/08/17 10:24 Consult Physician Urgent Consulting Provider: Marjorie Rucker Consult Reason/Comments: open heart Do you want consulting provider notified?: Yes, Notify in am 11/08/17 11:45 Consult Physician Routine Consulting Provider: Bro Law Consult Reason/Comments: Pulmonary management Do you want consulting provider notified?: Yes 11/10/17 08:11 Consult to Anesthesia Routine Consulting Provider: Anesthesia,Services Consult Reason/Comments: Cardiac Surgery Pre-Op 11/13/17 14:34 Consult Physician Routine Consulting Provider: Antonio Bruce Consult Reason/Comments: medical Management Do you want consulting provider notified?: Yes 11/16/17 12:40 Consult Physician Routine Consulting Provider: Dina Miranda Consult Reason/Comments: New right foot numb/tingling post CABG Do you want consulting provider notified?: Yes 11/17/17 08:32 Consult Physician Routine Consulting Provider: Gavino Mahoney Consult Reason/Comments: evaluate for inpatient rehab Do you want consulting provider notified?: Yes Primary care physician: Marion Holman - Discharge Diagnosis(es) (1) COPD (chronic obstructive pulmonary disease) Current Visit: Yes Status: Chronic (2) Family history of coronary artery disease Current Visit: Yes Status: Chronic (3) Hyperlipidemia Current Visit: Yes Status: Chronic (4) Ischemic cardiomyopathy Current Visit: Yes Status: Chronic (5) Nicotine dependence Current Visit: Yes Status: Chronic (6) Numbness of right foot Current Visit: Yes Status: Acute (7) Osteoarthritis Current Visit: Yes Status: Chronic (8) Chronic low back pain Current Visit: Yes Status: Chronic (9) Coronary artery disease Current Visit: Yes Status: Chronic Hospital Course: FINAL DIAGNOSIS: 1. Symptomatic triple-vessel coronary artery disease, totally occluded right coronary artery and mid left anterior descending artery 2. Ischemic cardiomyopathy with moderate to severe left ventricular dysfunction 3. Syncopal episodes 4. Multiple preoperative immature ventricular contractions 5. Tobacco abuse with preoperative FEV1 72% of predicted 6. Hyperlipidemia 7. Evidence of old anterior apical myocardial infarction 8. Family history of coronary artery disease 9. Postoperative right foot drop due to possible peripheral neuropraxia PRINCIPAL PROCEDURE: 1. Urgent triple vessel coronary artery bypass grafting using the left internal mammary artery to the distal left anterior descending artery, reverse saphenous vein graft from the aorta to the diagonal artery, reverse saphenous vein graft from the aorta to the posterior descending artery 2. Endoscopic harvesting of the left greater saphenous vein 3. Intraoperative transesophageal echocardiogram 4. Epi-aortic scanning 5. Intraoperative graft flow measurements using the Medistim system HISTORY OF PRESENT ILLNESS: This is a 57-year-old gentleman who follows with Dr. Holman on an outpatient basis. He began experiencing episodes of dizziness and syncope and received neurological workup which included a 2-D echocardiogram with an incidental finding of LV dysfunction with an ejection fraction of 30-35%. He was referred to Dr. García to undergo cardiac workup. He had an elective heart catheterization demonstrating 30% stenosis to the left main coronary artery, totally occluded right coronary artery, 70% stenosis to the circumflex coronary artery, 70% stenosis to the proximal left anterior descending coronary artery, and totally occluded mid left anterior descending coronary artery. During the heart catheterization and left ventriculogram was completed demonstrating an ejection fraction of 20%. Despite all these findings the patient denied any chest pain or cardiac symptoms. Dr. Rucker from cardiothoracic surgery was consulted for the possibility of surgical revascularization. An extensive discussion was had with the patient and his family, risks and benefits were explained, and consent was obtained to proceed with surgery. HOSPITAL COURSE: On 11/13/2017 the patient was taken to the preoperative area, prepared in usual fashion, and subsequently taken to the operating room where Dr. Rucker performed an urgent triple vessel coronary artery bypass grafting using the left internal mammary artery to the distal left anterior descending artery, reverse saphenous vein graft from the aorta to the diagonal artery, reverse saphenous vein graft from the aorta to the posterior descending artery, endoscopic harvesting of the left greater saphenous vein, intraoperative transesophageal echocardiogram, epi-aortic scanning, and intraoperative graft flow measurements using the Medistim system. Upon completion of surgery the patient was transferred to the cardiovascular intensive care unit where he was recovered, monitored hemodynamically, and where he progressed to cardiac rehabilitation phase 1. He was extubated, all lines, tubes, and drips were discontinued when appropriate, and he was transferred to 6 E. selective care for further monitoring and rehabilitation. He did experience postoperative right foot drop, most likely due to peripheral neuropraxia. An AFO foot splint was ordered for the patient. His oxygen was titrated down, he continued to work with physical therapy, and was ready to be discharged to home on postoperative day #5 with [facility] to follow. He received written and verbal instruction regarding his medications, activity restrictions, signs and symptoms requiring physician notification, and follow-up appointments. COMPLICATIONS: The patient experienced postoperative right foot drop due to possible peripheral neuropraxia. Plan - Discharge Summary Discharge Rx Participant: Yes New Discharge Prescriptions: New Aspirin 325 mg PO DAILY #30 tab Clopidogrel [Plavix] 75 mg PO DAILY #30 tab Furosemide [Lasix] 20 mg PO DAILY #30 tab HYDROcodone/APAP 5-325MG [[place] 5-325] 1 each PO Q6HR PRN #30 tab PRN Reason: Moderate Pain Lisinopril [Zestril] 2.5 mg PO DAILY@1200 #30 tab Metoprolol Tartrate [Lopressor] 50 mg PO BID #60 tab Pantoprazole [Protonix] 40 mg PO AC-BRKFST #[address] tablet.[address] Wilson-Docusate Sodium [Senokot-S] 2 each PO HS #30 tab Continue Atorvastatin [Lipitor] 40 mg PO W/SUPPER Albuterol Nebulized [Ventolin Nebulized] 2.5 mg INHALATION RT-TID PRN PRN Reason: sob Discontinued Clopidogrel Bisulfate [Plavix] 75 mg PO DAILY Aspirin [Adult Low Dose Aspirin EC] 81 mg PO DAILY Naproxen Sodium [Aleve] 440 mg PO Q12HR Isosorbide Mononitrate [Isosorbide Mononitrate ER] 15 mg PO DAILY@1200 traMADol HCL [Ultram] 50 mg PO BID PRN PRN Reason: Pain Metoprolol Succinate [Toprol XL] 25 mg PO DAILY Discharge Medication List Albuterol Nebulized [Ventolin Nebulized] 2.5 mg INHALATION RT-TID PRN 11/05/17 [ History] Atorvastatin [Lipitor] 40 mg PO W/SUPPER 11/05/17 [History] Aspirin 325 mg PO DAILY #30 tab 11/18/17 [Rx] Clopidogrel [Plavix] 75 mg PO DAILY #30 tab 11/18/17 [Rx] Furosemide [Lasix] 20 mg PO DAILY #30 tab 11/18/17 [Rx] HYDROcodone/APAP 5-325MG [[place] 5-325] 1 each PO Q6HR PRN #30 tab 11/18/17 [Rx] Lisinopril [Zestril] 2.5 mg PO DAILY@1200 #30 tab 11/18/17 [Rx] Metoprolol Tartrate [Lopressor] 50 mg PO BID #60 tab 11/18/17 [Rx] Pantoprazole [Protonix] 40 mg PO AC-BRKFST #30 tablet. 11/18/17 [Rx] Sennosides-Docusate Sodium [Senokot-S] 2 each PO HS #30 tab 11/18/17 [Rx] Follow up Appointment(s)/Referral(s): Orlin Sampson MD [STAFF PHYSICIAN] - 12/11/17 3:15 pm (Saturday) Antonette Manley NPC [Nurse Practitioner] - 11/22/17 1:00 pm (Saturday) Marjorie Rucker MD [STAFF PHYSICIAN] - 12/20/17 11:15 am (Saturday) Bro Law DO [Doctor of Osteopathic Medicine] - 12/04/17 10:30 am ( Saturday) [facility], [NON-STAFF] - Dina Miranda MD [STAFF PHYSICIAN] - 2 Weeks (Scheduled for EMG before outpatient visit possible. Office to call with follow up appointment.) Marion Holman MD [Primary Care Provider] - 11/26/17 10:30 am (Will be seeing nurse practitioner Martina) Ambulatory/Diagnostic Orders: Complete Blood Count w/diff [LAB.AMB] Time Frame: 3 Days, Location: Determined By Patient Comprehensive Metabolic Panel [LAB.AMB] Time Frame: 3 Days, Location: Determined By Patient Patient Instructions/Handouts: Sternal Precautions (GEN), Coronary Artery Bypass Graft (DC), Wearable Cardioverter Defibrillator (DC) Activity/Diet/Wound Care/Special Instructions: DISCHARGE INSTRUCTIONS: 1. No driving for 4 weeks, or until physician gives their ok. 2. The patient should sleep in their own bed, no medical bed needed. 3. Stairs are not an issue. If the bedroom is upstairs, it is advised that the patient go up at night and down in the morning for the first week. Go slowly, using handrail and take 1 step at a time. 4. JARRELL hose are to be worn for 30 days or until physician discontinues. 5. Heart hugger is to be worn 100% of the time until physician discontinues.( except when showering) 6. No lifting, pushing, or pulling more than 10 pounds for 12 weeks. The physician will advise of any restriction changes. 7. The patient is expected to continue the prescribed walking program. 8. Continue pain control per as needed orders. 9. Continue with incentive spirometry and splinting/heart hugger until otherwise directed by the physician. 10. Must shower daily using liquid antibacterial soap and a separate white washcloth for each individual incision. 11. Routine sternal incision care. No powders, lotions, ointments on incisions. 12. Please call surgeon/TIRE AND LUBE TECHNICIAN for temp greater than 101 F or purulent drainage from incisions. 13. All prescriptions given by surgeon for 30 days. Refills need to be filled through signal and communications maintainer/primary care physician. HOME HEALTH SERVICES TO PROVIDE: RN SKILLED HOME CARE SERVICES FOR POST-OP SURGICAL PATIENTS WITH THE FOLLOWING: Coronary Artery Bypass Surgery (CABG), Mitral Valve Replacement/ Repair ( MVR), Aortic Valve Replacement/Repair (AVR) RN TO CONTINUE EDUCATION FROM ``ROAD TO A HEALTH HEART PATIENT EDUCATION MANUAL (GIVEN TO PATIENT IN THE HOSPITAL) MEDICATION RECONCILIATION WITH EDUCATION NEEDED ON FIRST HOME VISIT EMPHASIZE IMPORTANCE OF WEARING BREAST SUPPORT/HEART HUGGER ENCOURAGE USE OF INCENTIVE SPIROMETER 10 X EVERY HOUR WHILE AWAKE ENCOURAGE UTILIZATION OF LOWER EXTREMITY COMPRESSION STOCKINGS/JARRELL HOSE and ELEVATE LEGS ABOVE LEVEL OF HEART WHILE AT REST. ENCOURAGE AMBULATION 3-5x/day INCREASING TOLERATES, WHILE AVOID EXTREMES IN TEMPERATURE FREQUENCY: RN TO OPEN THE PATIENT WITHIN 24 HOURS OF DISCHARGE FROM THE HOSPITAL WITH TELEHEALTH INSTALLED AT [facility], RN TO VISIT 2-3 X A WEEK FOR 4 WEEKS ESTABLISHED BY PATIENT NEEDS. REMOVAL OF SUTURES: NURSING SERVICES TO REMOVE SUTURES TWO WEEKS POST SURGICAL DATE 11/27/17. If any questions regarding suture removal please call the office at [phone]. LABORATORY: CBC, CMP TO BE DRAWN ON THE THIRD DAY HOME, 11/21/2017 (RAN STAT ) FAX RESULTS TO [phone]. TELEHEALTH PARAMETERS: WEIGHT: NOTIFY MD OF WEIGHT GAIN OF 2 LBS IN 24 HOURS OR 5 LBS IN ONE WEEK HR: NOTIFY MD OF HR <55 BPM OR HR>100 BPM BP: NOTIFY MD IF BP <90/55 OR BP>140/100 O2 SAT: NOTIFY MD IF PO2<93% ON ROOM AIR SEND TELEHEALTH REPORT TO SPECIAL MACHINE OPERATOR AND CARDIOVASCULAR SURGEON THE FIRST WEEK OF CARE AND THEN BI-WEEKLY. PLEASE ADDITIONALLY COMMUNICATE ANY ABNORMALS AND NEW FINDINGS TO THE SURGEONS OFFICE. A Red armband has been placed on the patient. It should be worn for 30 days post surgery and will be removed by the cardiac surgeons. If an ER visit is necessary, please make sure the number on the Red armband is called. [facility] [phone] [place] [address] SaturdayNovember 20 3:00 pm for fitting in office. [employer] Life Vest Discharge Disposition: HOME WITH HOME HEALTH SERVICES
--- NOTE | 2017-11-18 22:08 | P.PN ---
Subjective Patient is a status post CABG, he was lying with bit with no acute distress, no chest pain, no dyspnea Vitas looks stable, hemoglobin is 10.3 which is a stable , no leukocytosis with mild thrombocytopenia at 127, creatinine 0.9, repeat chest x-ray from today shows mild cardiomegaly small bilateral pleural effusion , left basilar airway disease After the surgery patient was complaining of from right ankle numbness, right foot drop, no blurred vision, no difficulty in speech, no headache Objective - Vital Signs Vital signs: Vital Signs Temp 97.3 F L 11/18/17 11:24 Pulse 75 11/18/17 13:00 Resp 18 11/18/17 13:00 BP 105/61 11/18/17 11:24 Pulse Ox 95 11/18/17 11:24 Intake & Output 11/18/17 11/18/17 11/19/17 06:59 18:59 06:59 Intake Total 582 Output Total 500 Balance -500 582 Weight 87.3 kg Intake: Oral 582 Output: Urine 500 Other: Voiding Method Urinal Urinal # Voids 1 ABP, PAP, CO, CI - Last Documented Arterial Blood Pressure 121/58 Pulmonary Artery Pressure 21/10 Cardiac Output 10.1 Cardiac Index 6.1 - Exam Constitutional: No acute distress, conversant, pleasant Eyes: Anicteric sclerae, moist conjunctiva, no lid-lag PERRLA ENMT: NC/AT Oropharynx clear, no erythema, exudates Neck: Supple, FROM, no masses, or JVD No carotid bruits No thyromegaly Lungs: Clear to auscultation Clear to percussion Normal respiratory effort, no accessory muscle use Cardiovascular: Heart regular in rate and rhythm, No murmurs, gallops, or rubs No peripheral edema Abdominal: Soft Nontender, no guarding, rebound or rigidity Abdomen moving with respiration Normoactive bowel sounds No palpable mass No abdominal wall hernia noted Skin: Normal temperature, tone, texture, turgor No induration No subcutaneous nodules No rash, lesions No ulcers Extremities: No digital cyanosis No clubbing Pedal pulses intact and symmetrical Radial pulses intact and symmetrical Normal gait and station No calf tenderness Psychiatric: Alert and oriented to person, place and time Appropriate affect Intact judgement Neuro: Muscles Strength 5/5 in all 4 extremities, right foot drop Sensation to light touch grossly present throughout Cranial nerves II-XII grossly intact No focal sensory deficits - Labs CBC & Chem 7: 11/17/17 05:41 11/17/17 17:46 Labs: Abnormal Lab Results - Last 24 Hours (Table) 11/18/17 11/18/17 Range/Units 06:22 11:26 POC Glucose (mg/dL) 118 H 154 H (75-99) mg/dL Assessment and Plan Assessment: Triple-vessel coronary artery disease. Status post CABG Ischemic cardiomyopathy ejection fraction 30-35% with inferior wall akinesis Exertional short of breath and dizziness Family history of coronary disease right foot numbness with foot drop after CABG Nicotine addiction Hyperlipidemia Osteoarthritis Possible underlying COPD with long-standing history of smoking DVT prophylaxis Plan: This is a 57 years old male with triple-vessel disease, S/p CABG, he tolerated the procedure well he was lying in bed with no difficulties per cardiothoracic surgery primary team, pulmonary evaluation is also appreciated,Continue the use of incentive spirometer., Continue with aspirin and Plavix, and statin, patient is complaining of from new right ankle numbness with with the drops new after CABG, neurological evaluation is appreciated, this could be radiculopathy or positional irritation during CABG and they recommended follow-up with the neurosurgeon as an outpatient and with electrophysiological testing outpatient setting, continue with DVT and GI prophylaxis I recommended patient may follow up with his primary care doctor in 1 week after discharge, discussed with patient today i met the pt and , informed them about the neurlogist recommendation and recommended to f/u with neurologist and neurosurgeon as recommended in 1-2 week and pt verbalized understanding and acceptance , pt looks reliable to me and he concerned about his health pt has been evaluated by cream dipper , title curator , and neurologist team as well as Rehab physician and we recommend to f/u with their recommendation including the f/u as outpt thank you for allowing us to consult on the pt and feel free to contact us for any further concern of question
[2017-11-19] MEDS ORDERED: FUROSEMIDE 20 MG TAB PO SCH ×2 (09:00)
== END 2017-11-18 18:15 | disposition home health service (06) | DRG 234 ==
LOC: CATHCVL 07:33 → 6SEL 09:55 → CATHCVL 11-09 14:03 → 6SEL 11-09 14:04 → 6ICU 11-13 06:18 → 6SEL 11-15 20:28
PROVIDERS: ADMIT Surgery; ATTEND Surgery
PROC: 4A023N7 Measurement of Cardiac Sampling and Pressure, Left Heart, Percutaneous Approach (ICD-10-PCS; 2017-11-08)
PROC: B2111ZZ Fluoroscopy of Multiple Coronary Arteries using Low Osmolar Contrast (ICD-10-PCS; 2017-11-08)
PROC: B2151ZZ Fluoroscopy of Left Heart using Low Osmolar Contrast (ICD-10-PCS; 2017-11-08)
PROC: 02100Z9 Bypass Coronary Artery, One Artery from Left Internal Mammary, Open Approach (ICD-10-PCS; 2017-11-13)
PROC: 06BQ4ZZ Excision of Left Saphenous Vein, Percutaneous Endoscopic Approach (ICD-10-PCS; 2017-11-13)
PROC: 5A1221Z Performance of Cardiac Output, Continuous (ICD-10-PCS; 2017-11-13)
PROC: 021109W Bypass Coronary Artery, Two Arteries from Aorta with Autologous Venous Tissue, Open Approach (ICD-10-PCS; principal; 2017-11-13 08:00)
DX: I25.10 Atherosclerotic heart disease of native coronary artery without angina pectoris (principal); J90 Pleural effusion, not elsewhere classified; D69.6 Thrombocytopenia, unspecified; I25.82 Chronic total occlusion of coronary artery; I95.9 Hypotension, unspecified; E78.5 Hyperlipidemia, unspecified; I51.9 Heart disease, unspecified; F17.210 Nicotine dependence, cigarettes, uncomplicated; G89.29 Other chronic pain; I25.2 Old myocardial infarction; I25.5 Ischemic cardiomyopathy; I49.3 Ventricular premature depolarization; J44.9 Chronic obstructive pulmonary disease, unspecified; K59.00 Constipation, unspecified; M19.90 Unspecified osteoarthritis, unspecified site; M21.371 Foot drop, right foot; M54.10 Radiculopathy, site unspecified; M96.1 Postlaminectomy syndrome, not elsewhere classified; M54.5 Low back pain; R42 Dizziness and giddiness; I51.7 Cardiomegaly; T14.8XXA Other injury of unspecified body region, initial encounter; Z71.6 Tobacco abuse counseling; Z79.82 Long term (current) use of aspirin; Z79.899 Other long term (current) drug therapy; Z88.8 Allergy status to other drugs, medicaments and biological substances; Z87.01 Personal history of pneumonia (recurrent); Z82.49 Family history of ischemic heart disease and other diseases of the circulatory system
CPT/HCPCS: 71045; 71046; 80053; 80061; 80074; 81001; 82330; 82805; 83036; 83735; 83880; 84132; 84443; 85025; 85520; 85610; 85730; 86850; 86891; 86900; 86901; 86920; 87070; 87086; 93306; 93308; 93458; 93880; 93922; 93970; 94002; 94150; 94640; 94760

== ENCOUNTER 2018-03-06 12:54 | Day surgery (SDC) | payer BC ==
[2018-03-03 15:25] VITALS: BMI 23.3
[~2018-03-06 12:54] MED LIST changes: -ALPRAZolam 0.25 MG TAB PO PRN; -ALPRAZolam 0.5 MG TAB PO PRN; -ASPIRIN 325 MG TAB PO STA; +LACTATED RINGERS 1,000 ML IV SCH; -NITROGLYCERIN SL TABS 0.4 MG TAB SUBLINGUAL PRN; +SODIUM CHLORIDE 0.9% 1,000 ML IV SCH; -SODIUM CHLORIDE 0.9% 1,000 ML in EMPTY BAG 1 BAG IV ONE
[2018-03-06] MEDS ORDERED: ceFAZolin 1,000 MG in SODIUM CHLORIDE 0.9% IRRIGATIO 250 ML IRRIGATION ONE (15:00)
[2018-03-06] MEDS ORDERED: ceFAZolin IN SWFI 2 GM/20 ML SYRINGE IVP ONE (15:00)
[2018-03-06] MEDS ORDERED: LIDOCAINE 1% INJ 10MG/ML (20 ML MDV) ONE ×2 (15:53→16:17)
[2018-03-06] MEDS ORDERED: fentaNYL (PF) 50 MCG/ML 2 ML AMP ONE (15:53)
[2018-03-06] MEDS ORDERED: MIDAZOLAM 2 MG/2 ML VIAL ONE (15:53)
[2018-03-06] MEDS ORDERED: PROPOFOL 10 MG/ML 20 ML VIAL IV ONE (15:53)
[2018-03-06] MEDS ORDERED: KETAMINE 10 MG/ML 20 ML VIAL ONE (15:53)
[2018-03-06] MEDS ORDERED: IV FLUID CONTINUATION 950 ML IV ONE (16:01)
[2018-03-06] MEDS ORDERED: IOPAMIDOL-250 50ML BTL IV ONE ×2 (16:10→16:17)
[2018-03-06] MEDS ORDERED: LIDOCAINE 1% INJ 10MG/ML (20 ML MDV) SQ ONE ×2 (16:36→17:23)
[2018-03-06] MEDS ORDERED: ACETAMINOPHEN TAB 325 MG TAB PO PRN ×2 (17:54→17:55)
[2018-03-06] MEDS ORDERED: ACETAMINOPHEN IV (For NPO) 1,000 MG in EMPTY BAG 1 BAG IVPB ONE (17:55)
[2018-03-06] MEDS: HYDROcodone/APAP 5-325MG 1 EACH TAB PO PRN (19:39)
[2018-03-06] MEDS: METOPROLOL TARTRATE 50 MG TAB PO SCH (19:40)
--- NOTE | 2018-03-06 19:49 | CE ---
CARDIAC ELECTROPHYSIOLOGY REPORT Bro Gross is a 57-year-old male patient with known coronary artery disease and ischemic cardiomyopathy with severe LV dysfunction. He was admitted for management of future risk of sudden cardiac . A dual-chamber ICD was implanted for primary prevention of sudden cardiac . He has a history of sinus bradycardia, sick sinus syndrome. Patient was brought to the EP lab in a fasting state. Written informed consent was obtained prior to the procedure. The left shoulder area was prepped and draped as per protocol. Lidocaine 1% was used for local anesthesia. A 4 cm incision was made parallel to the deltopectoral groove, about 1.5 cm medial to it. The incision was carried down to the level of the pectoralis muscle. A subfascial pocket was made. Hemostasis was assured. The left axillary vein was accessed at 2 separate points under fluoroscopy, and via appropriately sized introducer sheaths, 2 leads were positioned in the right heart. The atrial lead was a Medtronic model #5076, 52 cm in length, and serial #[id number]. P waves 2.8 mV. Pacing impedance 722 ohms. Pacing threshold 1.5 V at 0.5 milliseconds. Ten-volt test was negative. The RV lead was positioned in the mid to high RV septum. [id number] protocol was followed. R-waves 12.5 mV. Pacing impedance 1115 ohms. Pacing threshold 0.7 V at 0.5 milliseconds. Ten-volt test was negative. Both leads were secured to the underlying pectoralis fascia using 2 nonabsorbable sutures. Pocket was irrigated with antibiotic solution. Leads were connected to the generator (Medtronic model #[id number], serial #[id number]). Lead and the generator were then placed in the subfascial pocket and the wound was closed in 3 layers and dressed per protocol. DFT testing under anesthesia was performed. A shock and T-wave protocol was used to induce ventricular fibrillation. There was one dropout, and a 10-joule shock in normal polarity failed. Subsequently a 20-joule shock in normal polarity failed and he was externally shocked to sinus rhythm. Three dropouts were noted at this time. For the first shock, the charge time was 2.06 seconds, shock impedance 60 ohms. For the second shock, the charge time was 4.35 seconds, shock impedance 59 ohms. ICD testing was then repeated after about 2.5 minutes in reverse polarity and at least sensitivity. Once again, a 10-joule shock failed. A 25-joule shock was successful. Three dropouts were noted. The first shock charge time was 1.89 seconds, 61 ohms. The second successful shock of 25 joules had a charge time of 5.22 seconds, shock impedance of 57 ohms. The device was then programmed to VT zone of 175 beats per minute, VF zone of 214 beats per minute with appropriate antitachycardia pacing, cardioversion, defibrillation. First cardioversion 25 joules. First defibrillation at maximum output. RESULT: 1. Successful dual-chamber ICD implantation for primary prevention of sudden cardiac and history of sick sinus syndrome and sinus bradycardia. 2. High DFT of 25 joules in reverse polarity. PLAN: Switch to carvedilol. Stop metoprolol. Start Aldactone 25 mg p.o. daily. Later will consider Entresto. MMODL / RODN: [id number] /
[2018-03-06] MEDS: ceFAZolin IN SWFI 2 GM/20 ML SYRINGE IVP SCH (22:04)
[2018-03-07] MEDS: ceFAZolin IN SWFI 2 GM/20 ML SYRINGE IVP SCH ×3 (04:09→15:03)
[2018-03-07] MEDS: HYDROcodone/APAP 5-325MG 1 EACH TAB PO PRN ×2 (04:13→10:00)
--- NOTE | 2018-03-07 07:31 | XR ---
EXAMINATION TYPE: XR chest 2V DATE OF EXAM: 03/07/2018 COMPARISON: 11/16/2017 HISTORY: 57-year-old male placement check TECHNIQUE: Frontal and lateral views FINDINGS: Left anterior chest wall AICD generator with right atrial and right ventricular leads. Heart normal s ize. Aorta and pulmonary vasculature within normal limits. Interval improved aeration at the left bas e. Lungs and pleural spaces appear clear. IMPRESSION: 2-lead left-sided AICD generator. No acute process seen.
--- NOTE | 2018-03-07 07:55 | P.DS ---
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 Please see indications and the diagnosis in my H&P which is present in the chart High DFT, 25 J reverse polarity Plan Patient may go home after completion of IV antibiotics, device interrogation and chest x-ray New medications carvedilol and spironolactone Discontinued medications metoprolol Follow up in 5 days in the device clinic and follow-up with me in 6 weeks Maximization of cardio myopathy medications and initiation of ENTRESTO if patient's blood pressure can tolerate it Plan - Discharge Summary Discharge Rx Participant: Yes New Discharge Prescriptions: New Carvedilol [Coreg] 3.125 mg PO BID #2 tablet Spironolactone [Aldactone] 25 mg PO DAILY #90 tablet Continue Atorvastatin [Lipitor] 40 mg PO W/SUPPER Albuterol Nebulized [Ventolin Nebulized] 2.5 mg INHALATION RT-TID PRN PRN Reason: sob Aspirin 325 mg PO DAILY #30 tab Clopidogrel [Plavix] 75 mg PO DAILY #30 tab Lisinopril [Zestril] 2.5 mg PO DAILY@1200 #30 tab Acetaminophen Tab [Tylenol] 500 mg PO BID Discontinued Metoprolol Tartrate [Lopressor] 50 mg PO BID #60 tab Discharge Medication List Albuterol Nebulized [Ventolin Nebulized] 2.5 mg INHALATION RT-TID PRN 11/05/17 [ History] Atorvastatin [Lipitor] 40 mg PO W/SUPPER 11/05/17 [History] Aspirin 325 mg PO DAILY #30 tab 11/18/17 [Rx] Clopidogrel [Plavix] 75 mg PO DAILY #30 tab 11/18/17 [Rx] Lisinopril [Zestril] 2.5 mg PO DAILY@1200 #30 tab 11/18/17 [Rx] Acetaminophen Tab [Tylenol] 500 mg PO BID 03/03/18 [History] Carvedilol [Coreg] 3.125 mg PO BID #2 tablet 03/06/18 [Rx] Spironolactone [Aldactone] 25 mg PO DAILY #90 tablet 03/06/18 [Rx] Follow up Appointment(s)/Referral(s): Orlin Sampson MD [STAFF PHYSICIAN] - 1 Week (Device clinic follow-up in 5 days Follow-up with Dr. Thakur in 6 weeks) Activity/Diet/Wound Care/Special Instructions: PATIENT EDUCATION MATERIAL Instructions following a heart rhythm device implant. 1. Keep dressing DRY for 5 DAYS. You may cover the area with Saran or Cling Wrap, prior to a shower. 2. The dressing will be removed in the Device Clinic at [facility]. Absorbable sutures were used to close the wound. 3. Avoid raising the left arm above the shoulder level. 4 week restriction 4. Avoid arm movements, like backscratching, rubbing the head, or pulling on a cord. 4 weeks restriction 5. Gentle range of motion movements of the shoulder, closest to the incision should be performed to avoid a frozen shoulder. (Pendulum exercises of the shoulder) 6. The opposite arm may be used freely. 7. Avoid driving for 7 days. 8. Avoid activities such as golfing, swimming, weed whacking, lifting more than 10 pounds weight, bowling, gymnastics and weight training/lifting. (6 weeks restriction) 9. Activities such as wood chopping with an axe, pull-ups in the gymnasium, power lifting, arc-welding, being close to home induction cooktops will always be a problem. 10. Arm sling is only a reminder not to raise the arm above the head. You do not need to keep the arm completely immobilized. Your free to move the arm and use it and for normal activities. In case of any problems, please call [facility], Katina Bridges, @ [phone], Attention: Device Clinic Device clinic follow-up in 5 days Follow-up with Dr. Thakur in 2-3 months Please discharged patient after completion of IV antibiotics, if the chest x- ray is within normal limits and if device interrogation is within normal limits Discharge Disposition: HOME SELF-CARE
[2018-03-07 07:57] LABS: Potassium 4.5 mmol/L (3.5-5.1)
[2018-03-07 08:43] VITALS: RESP 18
[2018-03-07] MEDS ORDERED: CLOPIDOGREL 75 MG TAB PO SCH (09:00)
[2018-03-07] MEDS ORDERED: ASPIRIN 325 MG TAB PO SCH (09:00)
[2018-03-07] MEDS: METOPROLOL TARTRATE 50 MG TAB PO SCH (09:48)
[2018-03-07] MEDS ORDERED: LISINOPRIL 2.5 MG TAB PO SCH (12:00)
[2018-03-07 12:14] VITALS: BP 115/75; PULSE 59; TEMP 97.7
[2018-03-07] MEDS ORDERED: ATORVASTATIN 40 MG TAB PO SCH (17:30)
== END 2018-03-07 15:33 | disposition home or self-care (01) ==
LOC: CATHEP 12:54 → 3OBS 17:43 → CATHEP 03-07 15:33
PROVIDERS: ATTEND Internal Medicine Clinical Cardiac Electrophysiology
DX: I49.5 Sick sinus syndrome (principal); I25.5 Ischemic cardiomyopathy; Z00.6 Encounter for examination for normal comparison and control in clinical research program; I25.10 Atherosclerotic heart disease of native coronary artery without angina pectoris; I50.9 Heart failure, unspecified; I49.3 Ventricular premature depolarization; Z95.1 Presence of aortocoronary bypass graft; F17.210 Nicotine dependence, cigarettes, uncomplicated; Z82.49 Family history of ischemic heart disease and other diseases of the circulatory system; Z79.02 Long term (current) use of antithrombotics/antiplatelets; Z79.82 Long term (current) use of aspirin; Z79.899 Other long term (current) drug therapy; Z88.8 Allergy status to other drugs, medicaments and biological substances
CPT/HCPCS: 93641; 33249; 80048; 80061; 71046; C1769 ×3; C1892; C1898; C1895; C1721; J2250; J0690 ×3; J2001; J3010; J2704; Q9966